=== PATIENT | female | born 1960 | race Hispanic/Latino ===

== ENCOUNTER 2022-12-18 19:03 | Emergency (ER) | payer OTHER ==
[2022-12-18 19:40] LABS: Absolute Lymphocytes (CBC) 3.3 K/uL (0.7-4.9); Hematocrit 37.7 % (36.0-45.0); Lymphocytes % 29.3 % (15.3-44.8); MCV 89.2 fL (80-100); MPV 8.9 fL (7.6-11.3); RBC Red Blood Cell Count 4.22 M/uL (3.86-4.86)
--- OUTSIDE RECORDS SUMMARY | 2022-12-18 19:48 | XMS REPORT | Continuity of Care Document ---
:1960 Author Organization [facility] t Address [address] [place] [address] Care Team Providers Name Role Phone Peace Ching Primary Care Physician [phone] Problems This patient has no known problems. Allergies, Adverse Reactions, Alerts This patient has no known allergies or adverse reactions. Medications Ordered Filled Start Stop Current Ordering Indication Dosage Frequency Signature Comments Components Source Medication Medication Date Date Medication? Clinician (SIG) Name Name TAKE ONE 2021-0 No 75 (1) 8-15 TABLET(S) 00:00: BY MOUTH 00 DAILY. TAKE ONE 2022-0 No 75 (1) 8-15 TABLET(S) 00:00: BY MOUTH 00 DAILY. TAKE 1 2022-0 No 5 TABLET 8-15 DAILY. 00:00: 00 TAKE 1 2022-0 No 5 TABLET 8-15 DAILY. 00:00: 00 TAKE ONE 2022-0 No 75 (1) 8-15 TABLET(S) 00:00: BY MOUTH 00 DAILY. TAKE ONE 2022-0 No 75 (1) 8-15 TABLET(S) 00:00: BY MOUTH 00 DAILY. TAKE 1 2022-0 No 5 TABLET 8-15 DAILY. 00:00: 00 TAKE 1 2022-0 No TABLET 8-15 DAILY. 00:00: 00 TAKE ONE 2022-0 No 75 (1) 8-15 TABLET(S) 00:00: BY MOUTH 00 DAILY. TAKE ONE 2022-0 No 75 (1) 8-15 TABLET(S) 00:00: BY MOUTH 00 DAILY. TAKE 1 2022-0 No 5 TABLET 8-15 DAILY. 00:00: 00 TAKE 1 2022-0 No TABLET 8-15 DAILY. 00:00: 00 &lt 2022-0 No 500 7-27 00:00: 00 &lt 2022-0 No 500 7 00:00: 00 &lt 2022-0 No 500 05-25 00:00: 00 &lt 2022-0 No 500 7 00:00: 00 Dose 2022-0 No 20 Unknown 05-24 00:00: 00 TAKE ONE 2-0 No 20 (1) 7-26 CAPSULE(S) 00:00: BY MOUTH 00 ONCE A DAY. &lt 2022-0 No 75 7 00:00: 00 Dose 2022-0 No 20 Unknown 05-24 00:00: 00 TAKE ONE 2-0 No 20 (1) 7-26 CAPSULE(S) 00:00: BY MOUTH 00 ONCE A DAY. &lt 2022-0 No 75 7 00:00: 00 Dose 2022-0 No 20 Unknown 05-24 00:00: 00 TAKE ONE 2-0 No 20 (1) 7-26 CAPSULE(S) 00:00: BY MOUTH 00 ONCE A DAY. &lt 2022-0 No 75 05-24 00:00: 00 Dose 2022-0 No 20 Unknown 05-24 00:00: 00 TAKE ONE 2-0 No 20 (1) 7-26 CAPSULE(S) 00:00: BY MOUTH 00 ONCE A DAY. &lt 2022-0 No 75 05-24 00:00: 00 triamcinolo 2-0 No 1% ne 05-21 acetonide 00:00: 0.1 % 00 topical cream TAKE ONE 2021-0 No 75 (1) 7-23 TABLET(S) 00:00: BY MOUTH 00 DAILY. &lt 2022-0 No 20 7- 00:00: 00 &lt 2022-0 No 75 7 00:00: 00 Dose 2022-0 No Unknown 7 00:00: 00 TAKE ONE 2-0 No 75 (1) 7-23 TABLET(S) 00:00: BY MOUTH 00 DAILY. &lt 2022-0 No 20 7-23 00:00: 00 &lt 2022-0 No 75 7- 00:00: 00 Dose 2022-0 No Unknown 7-23 00:00: 00 TAKE ONE 2-0 No 75 (1) 7-23 TABLET(S) 00:00: BY MOUTH 00 DAILY. &lt 2022-0 No 20 7-23 00:00: 00 &lt 2022-0 No 75 7-23 00:00: 00 triamcinolo 2-0 No 1% ne 7- acetonide 00:00: 0.1 % 00 topical cream TAKE ONE 2021-0 No 75 (1) 7-23 TABLET(S) 00:00: BY MOUTH 00 DAILY. &lt 2022-0 No 20 7-23 00:00: 00 &lt 2022-0 No 75 7-23 00:00: 00 meloxicam 2-0 No 1mg 7.5 mg 5-11 tablet 00:00: 00 meloxicam 2022-0 No 1mg 7.5 mg 5-11 tablet 00:00: 00 meloxicam 2022-0 No 1mg 7.5 mg 5-11 tablet 00:00: 00 meloxicam 2022-0 No 1mg 7.5 mg 5-11 tablet 00:00: 00 rosuvastati 2-0 No 1mg n 5 mg 5-03 tablet 00:00: 00 oxybutynin 2-0 No 1mg chloride ER 5-03 10 mg 00:00: tablet,exte 00 nded release 24 hr loratadine 2-0 No 1mg 10 mg 5-03 tablet 00:00: 00 omeprazole 2-0 No 1mg 20 mg 5-03 tablet,courtney 00:00: yed release 00 lisinopril 2-0 No 1mg 10 mg 5-03 tablet 00:00: 00 metformin 2022-0 No 1mg 500 mg 5-03 tablet 00:00: 00 Dose 2022-0 No Unknown 5-03 00:00: 00 Dose 2022-0 No Unknown 5-03 00:00: 00 Dose 2022-0 No Unknown 5-03 00:00: 00 Dose 2022-0 No Unknown 5-03 00:00: 00 Dose 2022-0 No Unknown 5-03 00:00: 00 Dose 2022-0 No Unknown 5-03 00:00: 00 Dose 2022-0 No Unknown 5-03 00:00: 00 Dose 2022-0 No Unknown 5-03 00:00: 00 Dose 2022-0 No Unknown 5-03 00:00: 00 Dose 2022-0 No Unknown 5-03 00:00: 00 Dose 2022-0 No Unknown 5-03 00:00: 00 Dose 2022-0 No Unknown 5-03 00:00: 00 Dose 2022-0 No Unknown 5-03 00:00: 00 Dose 2022-0 No Unknown 5-03 00:00: 00 Dose 2022-0 No Unknown 5-03 00:00: 00 rosuvastati 2022-0 No 1mg n 5 mg 5-03 tablet 00:00: 00 oxybutynin 2022-0 No 1mg chloride ER 5-03 10 mg 00:00: tablet,exte 00 nded release 24 hr loratadine 2022-0 No 1mg 10 mg 5-03 tablet 00:00: 00 omeprazole 2022-0 No 1mg 20 mg 5-03 tablet,courtney 00:00: yed release 00 lisinopril 2022-0 No 1mg 10 mg 5-03 tablet 00:00: 00 metformin 2022-0 No 1mg 500 mg 5-03 tablet 00:00: 00 Dose 2022-0 No Unknown 5-03 00:00: 00 Dose 2022-0 No Unknown 5-03 00:00: 00 Dose 2022-0 No Unknown 5-03 00:00: 00 Dose 2022-0 No Unknown 5-03 00:00: 00 Dose 2022-0 No Unknown 5-03 00:00: 00 Dose 2022-0 No Unknown 5-03 00:00: 00 Dose 2022-0 No Unknown 5-03 00:00: 00 Dose 2022-0 No Unknown 5-03 00:00: 00 Dose 2022-0 No Unknown 5-03 00:00: 00 Dose 2022-0 No Unknown 5-03 00:00: 00 Dose 2022-0 No Unknown 5-03 00:00: 00 Dose 2022-0 No Unknown 5-03 00:00: 00 Dose 2022-0 No Unknown 5-03 00:00: 00 Dose 2022-0 No Unknown 5-03 00:00: 00 Dose 2022-0 No Unknown 5-03 00:00: 00 rosuvastati 2022-0 No 1mg n 5 mg 5-03 tablet 00:00: 00 oxybutynin 2022-0 No 1mg chloride ER 5-03 10 mg 00:00: tablet,exte 00 nded release 24 hr loratadine 2022-0 No 1mg 10 mg 5-03 tablet 00:00: 00 omeprazole 2022-0 No 1mg 20 mg 5-03 tablet,courtney 00:00: yed release 00 lisinopril 2022-0 No 1mg 10 mg 5-03 tablet 00:00: 00 metformin 2022-0 No 1mg 500 mg 5-03 tablet 00:00: 00 Dose 2022-0 No Unknown 5-03 00:00: 00 Dose 2022-0 No Unknown 5-03 00:00: 00 Dose 2022-0 No Unknown 5-03 00:00: 00 rosuvastati 2022-0 No 1mg n 5 mg 5-03 tablet 00:00: 00 oxybutynin 2022-0 No 1mg chloride ER 5-03 10 mg 00:00: tablet,exte 00 nded release 24 hr loratadine 2-0 No 1mg 10 mg 5-03 tablet 00:00: 00 omeprazole 2022-0 No 1mg 20 mg 5-03 tablet,courtney 00:00: yed release 00 lisinopril 2022-0 No 1mg 10 mg 5-03 tablet 00:00: 00 metformin 2022-0 No 1mg 500 mg 5-03 tablet 00:00: 00 Dose 2022-0 No Unknown 5-03 00:00: 00 Dose 2022-0 No Unknown 5-03 00:00: 00 Dose 2022-0 No Unknown 5-03 00:00: 00 Dose 2022-0 No Unknown 5-03 00:00: 00 Dose 2022-0 No Unknown 5-03 00:00: 00 Dose 2022-0 No Unknown 5-03 00:00: 00 Dose 2022-0 No Unknown 5-03 00:00: 00 Dose 2022-0 No Unknown 5-03 00:00: 00 Dose 2022-0 No Unknown 5-03 00:00: 00 Dose 2022-0 No Unknown 5-03 00:00: 00 Dose 2022-0 No Unknown 5-03 00:00: 00 Dose 2022-0 No Unknown 5-03 00:00: 00 Dose 2022-0 No Unknown 5-03 00:00: 00 Dose 2022-0 No Unknown 5-03 00:00: 00 Dose 2022-0 No Unknown 5-03 00:00: 00 Dose 2022-0 No Unknown 5-03 00:00: 00 Dose 2-0 No Unknown 5-03 00:00: 00 Dose 2-0 No Unknown 5-03 00:00: 00 Dose 2-0 No Unknown 5-03 00:00: 00 Dose 2-0 No Unknown 5-03 00:00: 00 Dose 2-0 No Unknown 5-03 00:00: 00 Dose 2-0 No Unknown 5-03 00:00: 00 Dose 2-0 No Unknown 5-03 00:00: 00 Dose 2-0 No Unknown 5-03 00:00: 00 Dose 2-0 No Unknown 5-03 00:00: 00 Dose 2-0 No Unknown 5-03 00:00: 00 Dose 2-0 No Unknown 5-03 00:00: 00 Vitamin D3 2-0 No 1(1,000 25 mcg 2-09 unit) (1,000 00:00: unit) 00 capsule Vitamin D3 2-0 No 1(1,000 25 mcg 2-09 unit) (1,000 00:00: unit) 00 capsule Vitamin D3 2-0 No 1(1,000 25 mcg 2-09 unit) (1,000 00:00: unit) 00 capsule Vitamin D3 2-0 No 1(1,000 25 mcg 2-09 unit) (1,000 00:00: unit) 00 capsule Dose 2-0 No Unknown 2-08 00:00: 00 oxybutynin 2-0 No 1mg chloride ER 2-08 10 mg 00:00: tablet,exte 00 nded release 24 hr Dose 2-0 No Unknown 2-08 00:00: 00 Dose 2-0 No Unknown 2-08 00:00: 00 oxybutynin 2-0 No 1mg chloride ER 2-08 10 mg 00:00: tablet,exte 00 nded release 24 hr Dose 2-0 No Unknown 2-08 00:00: 00 Dose 2-0 No Unknown 2-08 00:00: 00 oxybutynin 2022-0 No 1mg chloride ER 2-08 10 mg 00:00: tablet,exte 00 nded release 24 hr Dose 2-0 No Unknown 2-08 00:00: 00 Dose 2-0 No Unknown 2-08 00:00: 00 oxybutynin 2-0 No 1mg chloride ER 2-08 10 mg 00:00: tablet,exte 00 nded release 24 hr Dose 2-0 No Unknown 2-08 00:00: 00 oxybutynin 1-1 No 1mg chloride ER 1-17 10 mg 00:00: tablet,exte 00 nded release 24 hr oxybutynin 2020-1 No 1mg chloride ER 1-17 10 mg 00:00: tablet,exte 00 nded release 24 hr oxybutynin 2020-1 No 1mg chloride ER 1-17 10 mg 00:00: tablet,exte 00 nded release 24 hr oxybutynin 2020-1 No 1mg chloride ER 1-17 10 mg 00:00: tablet,exte 00 nded release 24 hr triamcinolo 2020-1 No 1% ne 1-04 acetonide 00:00: 0.1 % 00 topical cream Dose 2020-1 No Unknown 1-04 00:00: 00 lisinopril 1-1 No 1mg 10 mg 1-04 tablet 00:00: 00 rosuvastati 2020-1 No 1mg n 5 mg 1-04 tablet 00:00: 00 omeprazole 1-1 No 1mg 20 mg 1-04 tablet,courtney 00:00: yed release 00 loratadine 2020-1 No 1mg 10 mg 1-04 tablet 00:00: 00 metformin 1-1 No 1mg 500 mg 1-04 tablet 00:00: 00 Dose 2020-1 No Unknown 1-04 00:00: 00 Dose 1-1 No Unknown 1-04 00:00: 00 lisinopril 1-1 No 1mg 10 mg 1-04 tablet 00:00: 00 rosuvastati 1-1 No 1mg n 5 mg 1-04 tablet 00:00: 00 omeprazole 1-1 No 1mg 20 mg 1-04 tablet,courtney 00:00: yed release 00 loratadine 1-1 No 1mg 10 mg 1-04 tablet 00:00: 00 metformin 1-1 No 1mg 500 mg 1-04 tablet 00:00: 00 triamcinolo 1-1 No 1% ne 1-04 acetonide 00:00: 0.1 % 00 topical cream Dose 2020- No Unknown 1-04 00:00: 00 lisinopril 2020-1 No 1mg 10 mg 1-04 tablet 00:00: 00 rosuvastati 2020-1 No 1mg n 5 mg 1-04 tablet 00:00: 00 omeprazole 2020-1 No 1mg 20 mg 1-04 tablet,courtney 00:00: yed release 00 loratadine 2020- No 1mg 10 mg 1-04 tablet 00:00: 00 metformin 2020-1 No 1mg 500 mg 1-04 tablet 00:00: 00 Dose 2020-1 No Unknown 1-04 00:00: 00 Dose 2020-1 No Unknown 1-04 00:00: 00 lisinopril 2020-1 No 1mg 10 mg 1-04 tablet 00:00: 00 rosuvastati 2020-1 No 1mg n 5 mg 1-04 tablet 00:00: 00 omeprazole 2020-1 No 1mg 20 mg 1-04 tablet,courtney 00:00: yed release 00 loratadine 2020- No 1mg 10 mg 1-04 tablet 00:00: 00 metformin 2020-1 No 1mg 500 mg 1-04 tablet 00:00: 00 triamcinolo 2020- No 1% ne 1-03 acetonide 00:00: 0.1 % 00 topical cream omeprazole 2020- No 1mg 20 mg 1-03 tablet,courtney 00:00: yed release 00 meloxicam 2020-1 No 1mg 7.5 mg 1-03 tablet 00:00: 00 lisinopril 2020-1 No 1mg 10 mg 1-03 tablet 00:00: 00 rosuvastati 2020-1 No 1mg n 5 mg 1-03 tablet 00:00: 00 metformin 2020-1 No 1mg 500 mg 1-03 tablet 00:00: 00 triamcinolo 2020-1 No 1% ne 1-03 acetonide 00:00: 0.1 % 00 topical cream omeprazole 2020-1 No 1mg 20 mg 1-03 tablet,courtney 00:00: yed release 00 meloxicam 2020-1 No 1mg 7.5 mg 1-03 tablet 00:00: 00 lisinopril 2020-1 No 1mg 10 mg 1-03 tablet 00:00: 00 rosuvastati 1-1 No 1mg n 5 mg 1-03 tablet 00:00: 00 triamcinolo 1-1 No 1% ne 1-03 acetonide 00:00: 0.1 % 00 topical cream omeprazole 2020-1 No 1mg 20 mg 1-03 tablet,courtney 00:00: yed release 00 meloxicam 1-1 No 1mg 7.5 mg 1-03 tablet 00:00: 00 lisinopril 1-1 No 1mg 10 mg 1-03 tablet 00:00: 00 rosuvastati 2020-1 No 1mg n 5 mg 1-03 tablet 00:00: 00 metformin 1-1 No 1mg 500 mg 1-03 tablet 00:00: 00 metformin 1-1 No 1mg 500 mg 1-03 tablet 00:00: 00 triamcinolo 2020-1 No 1% ne 1-03 acetonide 00:00: 0.1 % 00 topical cream omeprazole 2020-1 No 1mg 20 mg 1-03 tablet,courtney 00:00: yed release 00 meloxicam 2020-1 No 1mg 7.5 mg 1-03 tablet 00:00: 00 lisinopril 1-1 No 1mg 10 mg 1-03 tablet 00:00: 00 rosuvastati 1-1 No 1mg n 5 mg 1-03 tablet 00:00: 00 metformin 1-1 No 1mg 500 mg 1-03 tablet 00:00: 00 diclofenac 2021-0 No 1% 1 % topical 7-21 gel 00:00: 00 omeprazole 1-0 No 1mg 20 mg 7-21 tablet,courtney 00:00: yed release 00 meloxicam 1-0 No 1mg 7.5 mg 7-21 tablet 00:00: 00 lisinopril 2021-0 No 1mg 10 mg 7-21 tablet 00:00: 00 rosuvastati 2021-0 No 1mg n 5 mg 7-21 tablet 00:00: 00 oxybutynin 2021-0 No 1mg chloride ER 7-21 5 mg 00:00: tablet,exte 00 nded release 24 hr metformin 1-0 No 1mg 500 mg 7-21 tablet 00:00: 00 Lidocaine 2021-0 No 15% Viscous 2 % 7-21 mucosal 00:00: solution 00 diclofenac 2021-0 No 1% 1 % topical 7-21 gel 00:00: 00 omeprazole 2021-0 No 1mg 20 mg 7-21 tablet,courtney 00:00: yed release 00 meloxicam 2021-0 No 1mg 7.5 mg 7-21 tablet 00:00: 00 lisinopril 2021-0 No 1mg 10 mg 7-21 tablet 00:00: 00 rosuvastati 2021-0 No 1mg n 5 mg 7-21 tablet 00:00: 00 oxybutynin 2021-0 No 1mg chloride ER 7-21 5 mg 00:00: tablet,exte 00 nded release 24 hr metformin 2021-0 No 1mg 500 mg 7-21 tablet 00:00: 00 Lidocaine 2021-0 No 15% Viscous 2 % 7-21 mucosal 00:00: solution 00 diclofenac 2021-0 No 1% 1 % topical 7-21 gel 00:00: 00 omeprazole 2021-0 No 1mg 20 mg 7-21 tablet,courtney 00:00: yed release 00 meloxicam 2021-0 No 1mg 7.5 mg 7-21 tablet 00:00: 00 lisinopril 2021-0 No 1mg 10 mg 7-21 tablet 00:00: 00 rosuvastati 2021-0 No 1mg n 5 mg 7-21 tablet 00:00: 00 oxybutynin 2021-0 No 1mg chloride ER 7-21 5 mg 00:00: tablet,exte 00 nded release 24 hr metformin 2021-0 No 1mg 500 mg 7-21 tablet 00:00: 00 Lidocaine 2021-0 No 15% Viscous 2 % 7-21 mucosal 00:00: solution 00 diclofenac 2021-0 No 1% 1 % topical 7-21 gel 00:00: 00 omeprazole 2021-0 No 1mg 20 mg 7-21 tablet,courtney 00:00: yed release 00 meloxicam 2021-0 No 1mg 7.5 mg 7-21 tablet 00:00: 00 lisinopril 2021-0 No 1mg 10 mg 7-21 tablet 00:00: 00 rosuvastati 2021-0 No 1mg n 5 mg 7-21 tablet 00:00: 00 oxybutynin 2021-0 No 1mg chloride ER 7-21 5 mg 00:00: tablet,exte 00 nded release 24 hr metformin 2021-0 No 1mg 500 mg 7-21 tablet 00:00: 00 Lidocaine 2021-0 No 15% Viscous 2 % 7-21 mucosal 00:00: solution 00 levofloxaci 2021-0 No 1mg n 250 mg 5-07 tablet 00:00: 00 metformin 2021-0 No 1mg 500 mg 5-07 tablet 00:00: 00 levofloxaci 2021-0 No 1mg n 250 mg 5-07 tablet 00:00: 00 metformin 2021-0 No 1mg 500 mg 5-07 tablet 00:00: 00 levofloxaci 2021-0 No 1mg n 250 mg 5-07 tablet 00:00: 00 metformin 2021-0 No 1mg 500 mg 5-07 tablet 00:00: 00 levofloxaci 2021-0 No 1mg n 250 mg 5-07 tablet 00:00: 00 metformin 2021-0 No 1mg 500 mg 5-07 tablet 00:00: 00 rosuvastati 2021-0 No 1mg n 5 mg 5-04 tablet 00:00: 00 meloxicam 2021-0 No 1mg 7.5 mg 5-04 tablet 00:00: 00 lisinopril 2021-0 No 1mg 10 mg 5-04 tablet 00:00: 00 rosuvastati 2021-0 No 1mg n 5 mg 5-04 tablet 00:00: 00 omeprazole 2021-0 No 1mg 20 mg 5-04 tablet,courtney 00:00: yed release 00 oxybutynin 2021-0 No 1mg chloride ER 5-04 5 mg 00:00: tablet,exte 00 nded release 24 hr metformin 2021-0 No 1mg 500 mg 5-04 tablet 00:00: 00 meloxicam 2021-0 No 1mg 7.5 mg 5-04 tablet 00:00: 00 lisinopril 2021-0 No 1mg 10 mg 5-04 tablet 00:00: 00 omeprazole 2021-0 No 1mg 20 mg 5-04 tablet,courtney 00:00: yed release 00 oxybutynin 2021-0 No 1mg chloride ER 5-04 5 mg 00:00: tablet,exte 00 nded release 24 hr metformin 2021-0 No 1mg 500 mg 5-04 tablet 00:00: 00 rosuvastati 2021-0 No 1mg n 5 mg 5-04 tablet 00:00: 00 meloxicam 2021-0 No 1mg 7.5 mg 5-04 tablet 00:00: 00 lisinopril 2021-0 No 1mg 10 mg 5-04 tablet 00:00: 00 omeprazole 2021-0 No 1mg 20 mg 5-04 tablet,courtney 00:00: yed release 00 oxybutynin 2021-0 No 1mg chloride ER 5-04 5 mg 00:00: tablet,exte 00 nded release 24 hr metformin 2021-0 No 1mg 500 mg 5-04 tablet 00:00: 00 rosuvastati 2021-0 No 1mg n 5 mg 5-04 tablet 00:00: 00 meloxicam 2021-0 No 1mg 7.5 mg 5-04 tablet 00:00: 00 lisinopril 2021-0 No 1mg 10 mg 5-04 tablet 00:00: 00 omeprazole 2021-0 No 1mg 20 mg 5-04 tablet,courtney 00:00: yed release 00 oxybutynin 2021-0 No 1mg chloride ER 5-04 5 mg 00:00: tablet,exte 00 nded release 24 hr metformin 2021-0 No 1mg 500 mg 5-04 tablet 00:00: 00 rosuvastati 2021-0 No 1mg n 5 mg 4-06 tablet 00:00: 00 rosuvastati 2021-0 No 1mg n 5 mg 4-06 tablet 00:00: 00 rosuvastati 2021-0 No 1mg n 5 mg 4-06 tablet 00:00: 00 rosuvastati 2021-0 No 1mg n 5 mg 4-06 tablet 00:00: 00 rosuvastati 2021-0 No 1mg n 5 mg 2-06 tablet 00:00: 00 rosuvastati 2021-0 No 1mg n 5 mg 2-06 tablet 00:00: 00 rosuvastati 2021-0 No 1mg n 5 mg 2-06 tablet 00:00: 00 rosuvastati 2021-0 No 1mg n 5 mg 2-06 tablet 00:00: 00 meloxicam 2021-0 No 1mg 7.5 mg 2-04 tablet 00:00: 00 lisinopril 2021-0 No 1mg 10 mg 2-04 tablet 00:00: 00 omeprazole 2021-0 No 1mg 20 mg 2-04 tablet,courtney 00:00: yed release 00 oxybutynin 2021-0 No 1mg chloride ER 2-04 5 mg 00:00: tablet,exte 00 nded release 24 hr metformin 2021-0 No 1mg 500 mg 2-04 tablet 00:00: 00 meloxicam 2021-0 No 1mg 7.5 mg 2-04 tablet 00:00: 00 lisinopril 2021-0 No 1mg 10 mg 2-04 tablet 00:00: 00 omeprazole 2021-0 No 1mg 20 mg 2-04 tablet,courtney 00:00: yed release 00 oxybutynin 2021-0 No 1mg chloride ER 2-04 5 mg 00:00: tablet,exte 00 nded release 24 hr metformin 2021-0 No 1mg 500 mg 2-04 tablet 00:00: 00 meloxicam 2021-0 No 1mg 7.5 mg 2-04 tablet 00:00: 00 lisinopril 2021-0 No 1mg 10 mg 2-04 tablet 00:00: 00 omeprazole 2021-0 No 1mg 20 mg 2-04 tablet,courtney 00:00: yed release 00 oxybutynin 2021-0 No 1mg chloride ER 2-04 5 mg 00:00: tablet,exte 00 nded release 24 hr metformin 2021-0 No 1mg 500 mg 2-04 tablet 00:00: 00 meloxicam 2021-0 No 1mg 7.5 mg 2-04 tablet 00:00: 00 lisinopril 2021-0 No 1mg 10 mg 2-04 tablet 00:00: 00 omeprazole 2021-0 No 1mg 20 mg 2-04 tablet,courtney 00:00: yed release 00 oxybutynin 2021-0 No 1mg chloride ER 2-04 5 mg 00:00: tablet,exte 00 nded release 24 hr metformin 2021-0 No 1mg 500 mg 2-04 tablet 00:00: 00 meloxicam 2020-1 No 1mg 7.5 mg 2-07 tablet 00:00: 00 meloxicam 2020-1 No 1mg 7.5 mg 2-07 tablet 00:00: 00 meloxicam 2020-1 No 1mg 7.5 mg 2-07 tablet 00:00: 00 meloxicam 2020-1 No 1mg 7.5 mg 2-07 tablet 00:00: 00 lisinopril 2020-1 No 1mg 10 mg 1-12 tablet 00:00: 00 omeprazole 2019-1 No 1mg 20 mg 1-12 tablet,courtney 00:00: yed release 00 metformin 2020-1 No 1mg 500 mg 1-12 tablet 00:00: 00 lisinopril 2020-1 No 1mg 10 mg 1-12 tablet 00:00: 00 omeprazole 2019-1 No 1mg 20 mg 1-12 tablet,courtney 00:00: yed release 00 metformin 2020-1 No 1mg 500 mg 1-12 tablet 00:00: 00 lisinopril 2019-1 No 1mg 10 mg 1-12 tablet 00:00: 00 omeprazole 2019-1 No 1mg 20 mg 1-12 tablet,courtney 00:00: yed release 00 metformin 2020-1 No 1mg 500 mg 1-12 tablet 00:00: 00 lisinopril 2019-1 No 1mg 10 mg 1-12 tablet 00:00: 00 omeprazole 2019-1 No 1mg 20 mg 1-12 tablet,courtney 00:00: yed release 00 metformin 2020-1 No 1mg 500 mg 1-12 tablet 00:00: 00 meloxicam 2019-1 No 1mg 7.5 mg 1-11 tablet 00:00: 00 meloxicam 2019-1 No 1mg 7.5 mg 1-11 tablet 00:00: 00 meloxicam 2019-1 No 1mg 7.5 mg 1-11 tablet 00:00: 00 meloxicam 2019-1 No 1mg 7.5 mg 1-11 tablet 00:00: 00 oxybutynin 2019-1 No 1mg chloride ER 1-09 5 mg 00:00: tablet,exte 00 nded release 24 hr oxybutynin 2019-1 No 1mg chloride ER 1-09 5 mg 00:00: tablet,exte 00 nded release 24 hr oxybutynin 2019-1 No 1mg chloride ER 1-09 5 mg 00:00: tablet,exte 00 nded release 24 hr oxybutynin 2020-1 No 1mg chloride ER 1-09 5 mg 00:00: tablet,exte 00 nded release 24 hr meloxicam 2020-0 No 1mg 7.5 mg 8-13 tablet 00:00: 00 metformin 2020-0 No 1mg 500 mg 8-13 tablet 00:00: 00 diclofenac 2020-0 No 1% 3 % topical 8-13 gel 00:00: 00 lisinopril 2020-0 No 1mg 10 mg 8-13 tablet 00:00: 00 omeprazole 2020-0 No 1mg 20 mg 8-13 tablet,courtney 00:00: yed release 00 meloxicam 2020-0 No 1mg 7.5 mg 8-13 tablet 00:00: 00 metformin 2020-0 No 1mg 500 mg 8-13 tablet 00:00: 00 diclofenac 2020-0 No 1% 3 % topical 8-13 gel 00:00: 00 lisinopril 2020-0 No 1mg 10 mg 8-13 tablet 00:00: 00 omeprazole 2020-0 No 1mg 20 mg 8-13 tablet,courtney 00:00: yed release 00 meloxicam 2020-0 No 1mg 7.5 mg 8-13 tablet 00:00: 00 metformin 2020-0 No 1mg 500 mg 8-13 tablet 00:00: 00 diclofenac 2020-0 No 1% 3 % topical 8-13 gel 00:00: 00 lisinopril 2020-0 No 1mg 10 mg 8-13 tablet 00:00: 00 omeprazole 2020-0 No 1mg 20 mg 8-13 tablet,courtney 00:00: yed release 00 meloxicam 2020-0 No 1mg 7.5 mg 8-13 tablet 00:00: 00 metformin 2020-0 No 1mg 500 mg 8-13 tablet 00:00: 00 diclofenac 2020-0 No 1% 3 % topical 8-13 gel 00:00: 00 lisinopril 2020-0 No 1mg 10 mg 8-13 tablet 00:00: 00 omeprazole 2020-0 No 1mg 20 mg 8-13 tablet,courtney 00:00: yed release 00 omeprazole 2019-1 No 1mg 20 mg 2-11 tablet,courtney 00:00: yed release 00 metformin 2019-1 No 1mg 500 mg 2-11 tablet 00:00: 00 benzonatate 2019-1 No 1mg 200 mg 2-11 capsule 00:00: 00 Bromfed DM 2019-1 No 10mg/5 2 mg-30 2-11 mL mg-10 mg/5 00:00: mL oral 00 syrup omeprazole 2019-1 No 1mg 20 mg 2-11 tablet,courtney 00:00: yed release 00 metformin 2019-1 No 1mg 500 mg 2-11 tablet 00:00: 00 omeprazole 2019-1 No 1mg 20 mg 2-11 tablet,courtney 00:00: yed release 00 metformin 2019-1 No 1mg 500 mg 2-11 tablet 00:00: 00 benzonatate 2019-1 No 1mg 200 mg 2-11 capsule 00:00: 00 Bromfed DM 2019-1 No 10mg/5 2 mg-30 2-11 mL mg-10 mg/5 00:00: mL oral 00 syrup benzonatate 2019-1 No 1mg 200 mg 2-11 capsule 00:00: 00 Bromfed DM 2019-1 No 10mg/5 2 mg-30 2-11 mL mg-10 mg/5 00:00: mL oral 00 syrup omeprazole 2018-1 No 1mg 20 mg 2-11 tablet,courtney 00:00: yed release 00 metformin 2019-1 No 1mg 500 mg 2-11 tablet 00:00: 00 benzonatate 2019-1 No 1mg 200 mg 2-11 capsule 00:00: 00 Bromfed DM 2019-1 No 10mg/5 2 mg-30 2-11 mL mg-10 mg/5 00:00: mL oral 00 syrup Immunizations Ordered Immunization Filled Immunization Date Status Commen ts Source Name Name SHINGRIX VACCINE 2022-06-13 Completed 00:00:00 SHINGRIX VACCINE 2022-06-13 Completed 00:00:00 SHINGRIX VACCINE 2022-06-13 Completed 00:00:00 SHINGRIX VACCINE 2021-12-07 Completed 00:00:00 Tdap 2021-12-07 Completed 00:00:00 pneumococcal 2021-12-07 Completed polysacchar 00:00:00 [facility] VACCINE 2021-12-07 Completed 00:00:00 Tdap 2021-12-07 Completed 00:00:00 pneumococcal 2021-12-07 Completed polysacchar 00:00:00 [facility] VACCINE 2021-12-07 Completed 00:00:00 Tdap 2021-12-07 Completed 00:00:00 pneumococcal 2021-12-07 Completed polysacchar 00:00:00 [facility] VACCINE 2021-12-07 Completed 00:00:00 Tdap 2021-12-07 Completed 00:00:00 pneumococcal 2021-12-07 Completed polysacchar 00:00:00 Moderna COVID-19 2021-11-08 Completed Vaccine 00:00:00 Moderna COVID-19 2021-11-08 Completed Vaccine 00:00:00 Moderna COVID-19 2021-11-08 Completed Vaccine 00:00:00 Moderna COVID-19 2021-11-08 Completed Vaccine 00:00:00 Influenza, seasonal, 2021-09-01 Completed inj 00:00:00 Influenza, seasonal, 2021-09-01 Completed inj 00:00:00 Influenza, seasonal, 2021-09-01 Completed inj 00:00:00 Influenza, seasonal, 2021-09-01 Completed inj 00:00:00 Moderna COVID-19 2021-01-05 Completed Vaccine 00:00:00 Moderna COVID-19 2021-01-05 Completed Vaccine 00:00:00 Moderna COVID-19 2021-01-05 Completed Vaccine 00:00:00 Moderna COVID-19 2021-01-05 Completed Vaccine 00:00:00 influenza, injectable 2020-09-07 Completed 00:00:00 influenza, injectable 2020-09-07 Completed 00:00:00 influenza, injectable 2020-09-07 Completed 00:00:00 influenza, injectable 2020-09-07 Completed 00:00:00 Influenza, seasonal, 2019-10-09 Completed inj 00:00:00 Influenza, seasonal, 2019-10-09 Completed inj 00:00:00 Influenza, seasonal, 2019-10-09 Completed inj 00:00:00 Influenza, seasonal, 2019-10-09 Completed inj 00:00:00 Vital Signs Vital Name Observation Time Observation Value Comments Source BP Systolic 2022-08-02 16:17:00 118 mm[Hg] BP Diastolic 2022-08-02 16:17:00 61 mm[Hg] Weight Measured 2022-08-02 16:17:00 166.80 pounds Height Measured 2022-08-02 16:17:00 64.93 inches Body Temperature 2022-08-02 16:17:00 97.50 degrees Heart Rate 2022-08-02 16:17:00 82.00 /min Respiratory Rate 2022-08-02 16:17:00 20.00 /min BP Systolic 2022-06-13 08:03:00 123 mm[Hg] BP Diastolic 2022-06-13 08:03:00 59 mm[Hg] Weight Measured 2022-06-13 08:03:00 171.40 pounds Height Measured 2022-06-13 08:03:00 64.93 inches Body Temperature 2022-06-13 08:03:00 97.10 degrees Heart Rate 2022-06-13 08:03:00 70.00 /min Respiratory Rate 2022-06-13 08:03:00 BP Systolic 2022-05-24 15:23:00 125 mm[Hg] BP Diastolic 2022-05-24 15:23:00 63 mm[Hg] Weight Measured 2022-05-24 15:23:00 171.00 pounds Height Measured 2022-05-24 15:23:00 64.93 inches Body Temperature 2022-05-24 15:23:00 207.49 degrees Heart Rate 2022-05-24 15:23:00 77.00 /min Respiratory Rate 2022-05-24 15:23:00 BP Systolic 2021-12-07 08:50:00 127 mm[Hg] BP Diastolic 2021-12-07 08:50:00 58 mm[Hg] Weight Measured 2021-12-07 08:50:00 167.80 pounds Height Measured 2021-12-07 08:50:00 64.93 inches Body Temperature 2021-12-07 08:50:00 98.50 degrees Heart Rate 2021-12-07 08:50:00 73.00 /min Respiratory Rate 2021-12-07 08:50:00 21.00 /min BP Systolic 2021-09-01 11:47:00 127 mm[Hg] BP Diastolic 2021-09-01 11:47:00 69 mm[Hg] Weight Measured 2021-09-01 11:47:00 169.00 pounds Height Measured 2021-09-01 11:47:00 64.93 inches Body Temperature 2021-09-01 11:47:00 98.20 degrees Heart Rate 2021-09-01 11:47:00 74.00 /min Respiratory Rate 2021-09-01 11:47:00 18.00 /min BP Systolic 2021-09-01 08:10:00 127 mm[Hg] BP Diastolic 2021-09-01 08:10:00 69 mm[Hg] Weight Measured 2021-09-01 08:10:00 169.00 pounds Height Measured 2021-09-01 08:10:00 64.96 inches Body Temperature 2021-09-01 08:10:00 98.20 degrees Heart Rate 2021-09-01 08:10:00 74.00 /min Respiratory Rate 2021-09-01 08:10:00 18.00 /min BP Systolic 2021-08-04 16:52:00 BP Diastolic 2021-08-04 16:52:00 Weight Measured 2021-08-04 16:52:00 179.00 pounds Height Measured 2021-08-04 16:52:00 64.96 inches Body Temperature 2021-08-04 16:52:00 Heart Rate 2021-08-04 16:52:00 Respiratory Rate 2021-08-04 16:52:00 BP Systolic 2021-05-19 10:49:00 112 mm[Hg] BP Diastolic 2021-05-19 10:49:00 61 mm[Hg] Weight Measured 2021-05-19 10:49:00 170.60 pounds Height Measured 2021-05-19 10:49:00 64.96 inches Body Temperature 2021-05-19 10:49:00 97.70 degrees Heart Rate 2021-05-19 10:49:00 80.00 /min Respiratory Rate 2021-05-19 10:49:00 21.00 /min BP Systolic 2021-03-02 08:47:00 BP Diastolic 2021-03-02 08:47:00 Weight Measured 2021-03-02 08:47:00 169.20 pounds Height Measured 2021-03-02 08:47:00 64.96 inches Body Temperature 2021-03-02 08:47:00 98.20 degrees Heart Rate 2021-03-02 08:47:00 73.00 /min Respiratory Rate 2021-03-02 08:47:00 21.00 /min BP Systolic 2020-12-03 08:24:00 149 mm[Hg] BP Diastolic 2020-12-03 08:24:00 73 mm[Hg] Weight Measured 2020-12-03 08:24:00 168.60 pounds Height Measured 2020-12-03 08:24:00 64.96 inches Body Temperature 2020-12-03 08:24:00 98.30 degrees Heart Rate 2020-12-03 08:24:00 84.00 /min Respiratory Rate 2020-12-03 08:24:00 17.00 /min BP Systolic 2020-09-07 09:14:00 125 mm[Hg] BP Diastolic 2020-09-07 09:14:00 70 mm[Hg] Weight Measured 2020-09-07 09:14:00 165.60 pounds Height Measured 2020-09-07 09:14:00 64.96 inches Body Temperature 2020-09-07 09:14:00 98.70 degrees Heart Rate 2020-09-07 09:14:00 75.00 /min Respiratory Rate 2020-09-07 09:14:00 17.00 /min BP Systolic 2020-06-18 08:57:00 127 mm[Hg] BP Diastolic 2020-06-18 08:57:00 71 mm[Hg] Weight Measured 2020-06-18 08:57:00 Height Measured 2020-06-18 08:57:00 Body Temperature 2020-06-18 08:57:00 Heart Rate 2020-06-18 08:57:00 75.00 /min Respiratory Rate 2020-06-18 08:57:00 Procedures This patient has no known procedures. Plan of Care Planned Activity Planned Date Details Comments Source Goal Plan of Care Note [code = 21016-9] Goal Plan of Care Note [code = 43583-4] Goal Plan of Care Note [code = 31447-5] Goal Plan of Care Note [code = 30775-6] Goal Plan of Care Note [code = 48156-0] Goal Plan of Care Note [code = 40040-0] Goal Plan of Care Note [code = 74730-3] Goal Plan of Care Note [code = 49009-9] Goal Plan of Care Note [code = 81210-9] Goal Plan of Care Note [code = 48240-6] Goal Plan of Care Note [code = 71897-9] Goal Plan of Care Note [code = 92032-3] Goal Plan of Care Note [code = 76918-2] Goal Plan of Care Note [code = 62183-7] Goal Plan of Care Note [code = 74118-0] Goal Plan of Care Note [code = 80649-2] Goal Plan of Care Note [code = 10031-1] Goal Plan of Care Note [code = 47446-6] Goal Plan of Care Note [code = 92634-3] Goal Plan of Care Note [code = 26694-0] Goal Plan of Care Note [code = 18857-8] Goal Plan of Care Note [code = 11957-5] Goal Plan of Care Note [code = 69895-3] Goal Plan of Care Note [code = 96299-9] Goal Plan of Care Note [code = 56379-7] Goal Plan of Care Note [code = 48202-1] Goal Plan of Care Note [code = 46479-6] Goal Plan of Care Note [code = 33728-6] Goal Plan of Care Note [code = 13385-1] Goal Plan of Care Note [code = 18041-9] Goal Plan of Care Note [code = 31992-5] Goal Plan of Care Note [code = 87140-6] Goal Plan of Care Note [code = 11645-9] Goal Plan of Care Note [code = 60705-8] Goal Plan of Care Note [code = 84977-9] Goal Plan of Care Note [code = 86041-5] Goal Plan of Care Note [code = 69060-9] Goal Plan of Care Note [code = 99538-3] Goal Plan of Care Note [code = 41351-9] Goal Plan of Care Note [code = 80995-0] Goal Plan of Care Note [code = 71031-2] Goal Plan of Care Note [code = 50410-3] Goal Plan of Care Note [code = 00691-4] Goal Plan of Care Note [code = 90184-5] Goal Plan of Care Note [code = 20784-6] Goal Plan of Care Note [code = 07343-9] Goal Plan of Care Note [code = 24598-3] Goal Plan of Care Note [code = 43658-1] Goal Plan of Care Note [code = 97270-2] Goal Plan of Care Note [code = 12212-1] Goal Plan of Care Note [code = 70298-4] Goal Plan of Care Note [code = 99453-1] Goal Plan of Care Note [code = 69668-5] Goal Plan of Care Note [code = 95319-9] Goal Plan of Care Note [code = 79976-0] Goal Plan of Care Note [code = 34295-6] Goal Plan of Care Note [code = 24504-4] Goal Plan of Care Note [code = 96716-5] Goal Plan of Care Note [code = 42192-8] Goal Plan of Care Note [code = 90118-6] Goal Plan of Care Note [code = 75079-8] Goal Plan of Care Note [code = 40006-4] Goal Plan of Care Note [code = 79527-5] Goal Plan of Care Note [code = 29600-8] Goal Plan of Care Note [code = 20146-0] Goal Plan of Care Note [code = 22807-8] Goal Plan of Care Note [code = 32162-0] Goal Plan of Care Note [code = 35328-7] Goal Plan of Care Note [code = 87987-9] Goal Plan of Care Note [code = 35150-0] Goal Plan of Care Note [code = 75862-2] Goal Plan of Care Note [code = 00574-5] Goal Plan of Care Note [code = 53771-8] Goal Plan of Care Note [code = 09513-9] Goal Plan of Care Note [code = 18027-3] Goal Plan of Care Note [code = 08781-8] Goal Plan of Care Note [code = 23360-0] Goal Plan of Care Note [code = 60537-2] Goal Plan of Care Note [code = 15606-2] Goal Plan of Care Note [code = 63880-3] Goal Plan of Care Note [code = 09754-2] Goal Plan of Care Note [code = 47244-4] Goal Plan of Care Note [code = 20942-6] Goal Plan of Care Note [code = 09139-9] Goal Plan of Care Note [code = 73414-7] Goal Plan of Care Note [code = 30649-0] Goal Plan of Care Note [code = 35433-6] Goal Plan of Care Note [code = 35866-3] Goal Plan of Care Note [code = 62034-3] Goal Plan of Care Note [code = 83934-2] Goal Plan of Care Note [code = 74668-5] Goal Plan of Care Note [code = 85495-8] Goal Plan of Care Note [code = 53483-5] Goal Plan of Care Note [code = 51668-0] Goal Plan of Care Note [code = 64920-9] Goal Plan of Care Note [code = 49751-1] Goal Plan of Care Note [code = 74754-1] Goal Plan of Care Note [code = 80488-3] Goal Plan of Care Note [code = 75443-9] Goal Plan of Care Note [code = 05200-0] Goal Plan of Care Note [code = 57446-9] Goal Plan of Care Note [code = 86669-4] Goal Plan of Care Note [code = 24281-1] Goal Plan of Care Note [code = 62044-0] Goal Plan of Care Note [code = 02691-2] Goal Plan of Care Note [code = 32657-2] Encounters Start End Encounter Admission Attending Care Care Encounter Source Date/Time Date/Time Type Type Clinicians Facility Department ID 2022-12-12 2022-12-12 Outpatient SFA [facility] [id number] 023 Justice 11:01:15 11:01:15 0213 [facility] 2022-12-06 2022-12-06 Outpatient SFA SFA [id number] 023 Justice 08:18:29 08:18:29 0207 [facility] 2022-11-30 2022-11-30 Outpatient SFA SFA [id number] 023 Justice 13:44:40 13:44:40 0201 [facility] 2022-11-21 2022-11-21 Outpatient SFA SFA [id number] 023 Justice 13:14:42 13:14:42 0123 [facility] 2022-10-06 2022-10-06 Outpatient SFA SFA [id number] 022 Justice 15:08:31 15:08:31 1208 [facility] 2022-08-02 2022-08-02 Outpatient SFA SFA [id number] 022 Justice 16:15:48 16:15:48 1004 [facility] 2022-08-02 2022-08-02 Outpatient [id number]- [id number] hpz7xf-o 00:00:00 00:00:00 Visit l79p-6u85 39c-4b02-a -m333-9by 928-7bbe85 [id number] 5dv047 2022-07-29 2022-07-29 Outpatient S[facility] [id number] Hunt 09:32:39 09:32:39 0930 F Saul 2022-06-13 2022-06-13 Outpatient [id number]-r 00:00:00 00:00:00 Visit mv24-2d73 s77-3p48-4 -8745-42b 745-42b0af 1udohqt1i fdfa1e 2022-05-24 2022-05-24 Outpatient [id number]- [id number] qod566-0 00:00:00 00:00:00 Visit 9h09-725x b02-849n-i -xr27-7e5 h07-8s4518 856m60my4 a28af4 2022-05-21 2022-05-21 Outpatient z0brlj52- [id number] b1 rumh44-9 00:00:00 00:00:00 Visit 862f-48f5 62f-48f5-b -u135-d97 029-c73a3a q8i7u36m6 4d31c6 Results Test Description Test Time Test Comments Results Result Comments Source LIPID PANEL 2022-11-22 06:46:02 Test Item Value Reference Range Interpretation Comme nts CHOLESTEROL (test code = 2210) 163 MG/DL <200 TRIGLYCERIDES (test code = 2232) 80 MG/DL <150 HDL CHOLESTEROL (test code = 48 MG/DL >39 2220) CALC LDL CHOL (test code = 2237) 98 MG/DL <100 NOTE: CALCULATED LDL IS BASED ON DAYAMI-CAMPOS METHOD WHICHINCLUDES A DJUSTABLE TRIGLYCERIDE:VL DL CHOLESTEROL RATIO.THIS FACT OR VARIES BY MEASURED TRIGLY CERIDE AND NON-HDLCHOLESTE ROL CONCENTRATIONS WITH INCREASED CALCULATED LDL SEENIN HIGHER T RIGLYCERIDE OR LOWER NON-HDL S PECIMENS. FOR MOREINFORMATION , SEE CLIENT ANNOUNCEMENT AT [email or web address] LDL/HDL (test code = 2.04 RATIO <3.22 2237) COMPREHENSIVE METABOLIC [id number] 06:46:02 Test Item Value Reference Range Interpretation Comments GLUCOSE (test code = 114 MG/DL 70-99 H 2216) BUN (test code = 14 MG/DL 8-23 2207) CREATININE (test 0.65 MG/DL 0.60-1.30 code = 2214) eGFR (2020 CKD-EPI) 99 >60 (test code = 67503) ML/MIN/1.73 CALC BUN/CREAT (test 22 RATIO 6-28 code = 2235) SODIUM (test code = 143 MEQ/L 408-243 0407) POTASSIUM (test code 4.0 MEQ/L 3.5-5.4 = 2227) CHLORIDE (test code 105 MEQ/L 95-107 = 2214) CARBON DIOXIDE (test 25 MEQ/L 19-31 code = 220) CALCIUM (test code = 10.0 MG/DL 8.5-10.5 2208) PROTEIN, TOTAL (test 7.7 G/DL 6.1-8.3 code = 222) ALBUMIN (test code = 4.6 G/DL 3.5-5.2 2200) CALC GLOBULIN (test 3.1 G/DL 1.9-3.7 code = 2240) CALC A/G RATIO (test 1.5 RATIO 1.0-2.6 code = 2234) BILIRUBIN, TOTAL 0.2 MG/DL See_Comment [Automated message] (test code = 2207) The syste m which generated this result transmitted ref erence range: <=1.2. T he reference range was not used to int erpret this result as normal/abnormal . ALKALINE PHOSPHATASE 82 U/L 40-140 (test code = 220) AST (test code = 17 U/L 9-40 2217) ALT (test code = 11 U/L 5-40 UNLESS OTH ERWISE 2218) INDICATED, ALL TESTING PERFORM ED [facility] [place]. [address] [facility] [place], [place] [id number] [place] [address] DIRECTOR: JAYE SOTO M.D. CLIA NUMBER [id number] CAP ACCREDITATION N O. [id number] HEMOGLOBIN [id number] 03:10:16 Test Item Value Reference Range Interpretation Comments HEMOGLOBIN A1c (test 6.6 % 4.2-5.6 H [employer]ES code = 74882) ASSOCIATION IDELINES FOR HGB A1C: PREDIABETES/INC REASED RISK . . . . . . . 5.7 -6.4% DIAGNOSIS OF DI ABETES . . . . . . . . . >=6 .5% WITH CONFIRMATION OR APPROPRIATE SYMPTOMS NOTE: ASSAY MAY BE AFFECTED BY HEMOGLOBINOPATH IES (SICKLE CELL ANEMIA, S- C DISEASE, OTHERS) OR MYRIAM FICIALLY LOWERED BY DECR EASED RED CELL SURVIVAL ( HEMOLYTIC ANEMIAS, BLOOD LOSS, ETC.). CONSIDER ALTERN ATE TESTING OR LABORATORY C ONSULTATION. HEMOGLOBIN [id number] 11:21:58 Test Item Value Reference Range Interpretation Comments HEMOGLOBIN A1c (test 6.9 % 4.2-5.6 H [employer] [facility]ES code = 48804) ASSOCIATION IDELINES FOR HGB A1C: PREDIABETES/INC REASED RISK . . . . . . . 5.7 -6.4% DIAGNOSIS OF DI ABETES . . . . . . . . . >=6 .5% WITH CONFIRMATION OR APPROPRIATE SYMPTOMS NOTE: ASSAY MAY BE AFFECTED BY HEMOGLOBINOPATH IES (SICKLE CELL ANEMIA, S- C DISEASE, OTHERS) OR MYRIAM FICIALLY LOWERED BY DECR EASED RED CELL SURVIVAL ( HEMOLYTIC ANEMIAS, BLOOD LOSS, ETC.). CONSIDER ALTERN ATE TESTING OR LABORATORY C ONSULTATION. UNLESS OTHERWIS E INDICATED, ALL TESTING PER [facility] ATCLINICAL PATH [facility]. [address] [place] [address] [address] LAB[address]ATORY DIRE CTOR: JAYE SOTO M.D. CLIA NUMBER [id number] [place]. [id number] COMPREHENSIVE METABOLIC [id number] 06:26:27 Test Item Value Reference Range Interpretation Comments GLUCOSE (test code = 110 MG/DL 70-99 H 2216) BUN (test code = 20 MG/DL 06-21) CREATININE (test 0.64 MG/DL 0.60-1.30 code = 2214) eGFR (2020 CKD-EPI) 100 >60 (test code = 19885) ML/MIN/1.73 CALC BUN/CREAT (test 31 RATIO 6-28 H code = 2235) SODIUM (test code = 142 MEQ/L 309-155 6839) POTASSIUM (test code 4.6 MEQ/L 3.5-5.4 = 2227) CHLORIDE (test code 104 MEQ/L 95-107 = 221) CARBON DIOXIDE (test 26 MEQ/L 19-31 code = 2206) CALCIUM (test code = 9.8 MG/DL 8.5-10.5 2208) PROTEIN, TOTAL (test 7.2 G/DL 6.1-8.3 code = 222) ALBUMIN (test code = 4.3 G/DL 3.5-5.2 2200) CALC GLOBULIN (test 2.9 G/DL 1.9-3.7 code = 224) CALC A/G RATIO (test 1.5 RATIO 1.0-2.6 code = 223) BILIRUBIN, TOTAL 0.2 MG/DL See_Comment [Automated message] (test code = 220) The syste Foruforever which generated this result transmit darya reference range : <=1.2. The refe rence range was not u sed to interpret th is result as normal/abnormal . ALKALINE PHOSPHATASE 78 U/L 40-140 (test code = 220) AST (test code = 16 U/L 9-40 2217) ALT (test code = 11 U/L 5-40 2218) LIPID [id number] 06:26:27 Test Item Value Reference Range Interpretation Comments CHOLESTEROL (test 150 MG/DL <200 code = 2210) TRIGLYCERIDES (test 110 MG/DL <150 code = 2232) HDL CHOLESTEROL (test 42 MG/DL >39 code = 2220) CALC LDL CHOL (test 87 MG/DL <100 NOTE: C ALCULATED LDL code = 2237) IS BASED ON DAYAMI-CAMPOS METHOD WHICHINCLUDES ADJUSTABLE TRIGLYCERIDE:VL DL CHOLESTEROL RAT IO.THIS FACTOR VARIES B Y MEASURED TRIGLY CERIDE AND NON-HDLCHOL ESTEROL CONCENTRATIONS WITH INCREASED CALCU LATED LDL SEENIN HIGH ER TRIGLYCERIDE OR LOWER NON-HDL SPECIME NS. FOR MOREINFORMATION , SEE CLIENT ANNOUNCE MENT AT [email or web address] [email or web address] [email or web address] LDL/HDL 2.07 RATIO <3.22 (test code = 2238) COMPREHENSIVE METABOLIC [id number] 00:00:00 Test Item Value Reference Range Interpretation Comments GLUCOSE (test code = 2217) 110 MG/DL BUN (test code = 2208) 20 MG/DL CREATININE (test code = 2214) 0.64 MG/DL eGFR (2020 CKD-EPI) (test 100 ML/MIN/1.73 code = 92953) CALC BUN/CREAT (test code = 31 RATIO 2235) SODIUM (test code = 2231) 142 MEQ/L POTASSIUM (test code = 2228) 4.6 MEQ/L CHLORIDE (test code = 2215) 104 MEQ/L CARBON DIOXIDE (test code = 26 MEQ/L 2206) CALCIUM (test code = 2209) 9.8 MG/DL PROTEIN, TOTAL (test code = 7.2 G/DL 2228) ALBUMIN (test code = 2201) 4.3 G/DL CALC GLOBULIN (test code = 2.9 G/DL 2240) CALC A/G RATIO (test code = 1.5 RATIO 2234) BILIRUBIN, TOTAL (test code = 0.2 MG/DL 2206) ALKALINE PHOSPHATASE (test 78 U/L code = 2204) AST (test code = 2218) 16 U/L ALT (test code = 2219) 11 U/L COMPREHENSIVE METABOLIC [id number] 00:00:00 Test Item Value Reference Range Interpretation Comments GLUCOSE (test code = 2217) 110 MG/DL BUN (test code = 2208) 20 MG/DL CREATININE (test code = 2214) 0.64 MG/DL eGFR (2020 CKD-EPI) (test 100 ML/MIN/1.73 code = 57003) CALC BUN/CREAT (test code = 31 RATIO 2235) SODIUM (test code = 2231) 142 MEQ/L POTASSIUM (test code = 2228) 4.6 MEQ/L CHLORIDE (test code = 2215) 104 MEQ/L CARBON DIOXIDE (test code = 26 MEQ/L 2206) CALCIUM (test code = 2209) 9.8 MG/DL PROTEIN, TOTAL (test code = 7.2 G/DL 2228) ALBUMIN (test code = 2201) 4.3 G/DL CALC GLOBULIN (test code = 2.9 G/DL 2240) CALC A/G RATIO (test code = 1.5 RATIO 2234) BILIRUBIN, TOTAL (test code = 0.2 MG/DL 2206) ALKALINE PHOSPHATASE (test 78 U/L code = 2204) AST (test code = 2218) 16 U/L ALT (test code = 2219) 11 U/L LIPID [id number] 00:00:00 Test Item Value Reference Range Interpretation Comments CHOLESTEROL (test code = 2210) 150 MG/DL TRIGLYCERIDES (test code = 2232) 110 MG/DL HDL CHOLESTEROL (test code = 2220) 42 MG/DL CALC LDL CHOL (test code = 2237) 87 MG/DL RISK RATIO LDL/HDL (test code = 2.07 RATIO 2238) LIPID [id number] 00:00:00 Test Item Value Reference Range Interpretation Comments CHOLESTEROL (test code = 2210) 150 MG/DL TRIGLYCERIDES (test code = 2232) 110 MG/DL HDL CHOLESTEROL (test code = 2220) 42 MG/DL CALC LDL CHOL (test code = 2237) 87 MG/DL RISK RATIO LDL/HDL (test code = 2.07 RATIO 2238) HEMOGLOBIN [id number] 00:00:00 Test Item Value Reference Range Interpretation Comments HEMOGLOBIN A1c (test code = 35409) 6.9 % HEMOGLOBIN [id number] 00:00:00 Test Item Value Reference Range Interpretation Comments HEMOGLOBIN A1c (test code = 28136) 6.9 % HEMOGLOBIN [id number] 00:00:00 Test Item Value Reference Range Interpretation Comments HEMOGLOBIN A1c (test code = 16314) 6.9 % COMPREHENSIVE METABOLIC [id number] 00:00:00 Test Item Value Reference Range Interpretation Comments GLUCOSE (test code = 2217) 110 MG/DL BUN (test code = 2208) 20 MG/DL CREATININE (test code = 2214) 0.64 MG/DL eGFR (2020 CKD-EPI) (test 100 ML/MIN/1.73 code = 49986) CALC BUN/CREAT (test code = 31 RATIO 5) SODIUM (test code = 2231) 142 MEQ/L POTASSIUM (test code = 2228) 4.6 MEQ/L CHLORIDE (test code = 2215) 104 MEQ/L CARBON DIOXIDE (test code = 26 MEQ/L 2205) CALCIUM (test code = 2209) 9.8 MG/DL PROTEIN, TOTAL (test code = 7.2 G/DL 2228) ALBUMIN (test code = 2201) 4.3 G/DL CALC GLOBULIN (test code = 2.9 G/DL 2240) CALC A/G RATIO (test code = 1.5 RATIO 2234) BILIRUBIN, TOTAL (test code = 0.2 MG/DL 2206) ALKALINE PHOSPHATASE (test 78 U/L code = 2204) AST (test code = 2218) 16 U/L ALT (test code = 2219) 11 U/L COMPREHENSIVE METABOLIC [id number] 00:00:00 Test Item Value Reference Range Interpretation Comments GLUCOSE (test code = 2217) 110 MG/DL BUN (test code = 2208) 20 MG/DL CREATININE (test code = 2214) 0.64 MG/DL eGFR (2020 CKD-EPI) (test 100 ML/MIN/1.73 code = 29005) CALC BUN/CREAT (test code = 31 RATIO 2235) SODIUM (test code = 2231) 142 MEQ/L POTASSIUM (test code = 2228) 4.6 MEQ/L CHLORIDE (test code = 2215) 104 MEQ/L CARBON DIOXIDE (test code = 26 MEQ/L 2205) CALCIUM (test code = 2209) 9.8 MG/DL PROTEIN, TOTAL (test code = 7.2 G/DL 2228) ALBUMIN (test code = 2201) 4.3 G/DL CALC GLOBULIN (test code = 2.9 G/DL 2240) CALC A/G RATIO (test code = 1.5 RATIO 2234) BILIRUBIN, TOTAL (test code = 0.2 MG/DL 2206) ALKALINE PHOSPHATASE (test 78 U/L code = 2204) AST (test code = 2218) 16 U/L ALT (test code = 2219) 11 U/L LIPID [id number] 00:00:00 Test Item Value Reference Range Interpretation Comments CHOLESTEROL (test code = 2210) 150 MG/DL TRIGLYCERIDES (test code = 2232) 110 MG/DL HDL CHOLESTEROL (test code = 2220) 42 MG/DL CALC LDL CHOL (test code = 2237) 87 MG/DL RISK RATIO LDL/HDL (test code = 2.07 RATIO 2238) LIPID [id number] 00:00:00 Test Item Value Reference Range Interpretation Comments CHOLESTEROL (test code = 2210) 150 MG/DL TRIGLYCERIDES (test code = 2232) 110 MG/DL HDL CHOLESTEROL (test code = 2220) 42 MG/DL CALC LDL CHOL (test code = 2237) 87 MG/DL RISK RATIO LDL/HDL (test code = 2.07 RATIO 2238) HEMOGLOBIN [id number] 00:00:00 Test Item Value Reference Range Interpretation Comments HEMOGLOBIN A1c (test code = 22999) 6.9 % HEMOGLOBIN [id number] 00:00:00 Test Item Value Reference Range Interpretation Comments HEMOGLOBIN A1c (test code = 04975) 6.9 % HEMOGLOBIN [id number] 00:00:00 Test Item Value Reference Range Interpretation Comments HEMOGLOBIN A1c (test code = 23752) 6.9 % COMPREHENSIVE METABOLIC [id number] 00:00:00 Test Item Value Reference Range Interpretation Comments GLUCOSE (test code = 2217) 100 MG/DL BUN (test code = 2208) 12 MG/DL CREATININE (test code = 2214) 0.48 MG/DL eGFR (2020 CKD-EPI) (test 108 ML/MIN/1.73 code = 62660) CALC BUN/CREAT (test code = 25 RATIO 2235) SODIUM (test code = 2231) 145 MEQ/L POTASSIUM (test code = 2228) 4.2 MEQ/L CHLORIDE (test code = 2215) 105 MEQ/L CARBON DIOXIDE (test code = 29 MEQ/L 2205) CALCIUM (test code = 2209) 9.8 MG/DL PROTEIN, TOTAL (test code = 7.5 G/DL 2228) ALBUMIN (test code = 2201) 4.4 G/DL CALC GLOBULIN (test code = 3.1 G/DL 2239) CALC A/G RATIO (test code = 1.4 RATIO 2234) BILIRUBIN, TOTAL (test code = 0.3 MG/DL 2206) ALKALINE PHOSPHATASE (test 92 U/L code = 2204) AST (test code = 2218) 16 U/L ALT (test code = 2219) 14 U/L LIPID [id number] 00:00:00 Test Item Value Reference Range Interpretation Comments CHOLESTEROL (test code = 2210) 164 MG/DL TRIGLYCERIDES (test code = 2232) 105 MG/DL HDL CHOLESTEROL (test code = 2220) 46 MG/DL CALC LDL CHOL (test code = 2237) 98 MG/DL RISK RATIO LDL/HDL (test code = 2.13 RATIO 2238) HEMOGLOBIN [id number] 00:00:00 Test Item Value Reference Range Interpretation Comments HEMOGLOBIN A1c (test code = 39534) 6.6 % HEMOGLOBIN [id number] 00:00:00 Test Item Value Reference Range Interpretation Comments HEMOGLOBIN A1c (test code = 10803) 6.6 % [id number] 00:00:00 Test Item Value Reference Range Interpretation Comments TSH, THIRD GENERATION (test code 1.070 UIU/ML = 2821) [id number] 00:00:00 Test Item Value Reference Range Interpretation Comments TSH, THIRD GENERATION (test code 1.070 UIU/ML = 2821) VITAMIN D, 25 [id number] 00:00:00 Test Item Value Reference Range Interpretation Comments VITAMIN D, 25 OH (test code = 4958) 25 NG/ML CBC W/AUTO [id number] 00:00:00 Test Item Value Reference Range Interpretation Comments WBC (test code = 1001) 6.5 K/UL RBC (test code = 1002) 4.04 M/UL HEMOGLOBIN (test code = 1003) 12.4 G/DL HEMATOCRIT (test code = 1004) 36.4 % MCV (test code = 1005) 90.1 fL MCH (test code = 1006) 30.7 PG MCHC (test code = 1007) 34.1 G/DL RDW (test code = 1038) 12.9 % NEUTROPHILS (test code = 1008) 56.7 % LYMPHOCYTES (test code = 1010) 33.3 % MONOCYTES (test code = 1011) 6.9 % EOSINOPHILS (test code = 1012) 2.3 % BASOPHILS (test code = 1013) 0.6 % IMMATURE GRANULOCYTES (test 0.2 % code = 1036) NUCLEATED RBCS (test code = 0.0 /100WBC'S 1065) PLATELET COUNT (test code = 187 K/UL 1015) ABSOLUTE NEUTROPHILS (test code 3.71 K/UL = 1066) ABSOLUTE LYMPHOCYTES (test code 2.18 K/UL = 1067) ABSOLUTE MONOCYTES (test code = 0.45 K/UL 1068) ABSOLUTE EOSINOPHILS (test code 0.15 K/UL = 1040) ABSOLUTE BASOPHILS (test code = 0.04 K/UL 1069) ABS IMMATURE GRANULOCYTES (test 0.01 K/UL code = 1020) ABS NUCLEATED RBCS (test code = 0.00 K/UL 95136) CBC W/AUTO [id number] 00:00:00 Test Item Value Reference Range Interpretation Comments WBC (test code = 1001) 6.5 K/UL RBC (test code = 1002) 4.04 M/UL HEMOGLOBIN (test code = 1003) 12.4 G/DL HEMATOCRIT (test code = 1004) 36.4 % MCV (test code = 1005) 90.1 fL MCH (test code = 1006) 30.7 PG MCHC (test code = 1007) 34.1 G/DL RDW (test code = 1038) 12.9 % NEUTROPHILS (test code = 1008) 56.7 % LYMPHOCYTES (test code = 1010) 33.3 % MONOCYTES (test code = 1011) 6.9 % EOSINOPHILS (test code = 1012) 2.3 % BASOPHILS (test code = 1013) 0.6 % IMMATURE GRANULOCYTES (test 0.2 % code = 1036) NUCLEATED RBCS (test code = 0.0 /100WBC'S 1065) PLATELET COUNT (test code = 187 K/UL 1015) ABSOLUTE NEUTROPHILS (test code 3.71 K/UL = 1066) ABSOLUTE LYMPHOCYTES (test code 2.18 K/UL = 1067) ABSOLUTE MONOCYTES (test code = 0.45 K/UL 1068) ABSOLUTE EOSINOPHILS (test code 0.15 K/UL = 1040) ABSOLUTE BASOPHILS (test code = 0.04 K/UL 1069) ABS IMMATURE GRANULOCYTES (test 0.01 K/UL code = 1020) ABS NUCLEATED RBCS (test code = 0.00 K/UL 48445) COMPREHENSIVE METABOLIC [id number] 00:00:00 Test Item Value Reference Range Interpretation Comments GLUCOSE (test code = 2217) 100 MG/DL BUN (test code = 2208) 12 MG/DL CREATININE (test code = 2214) 0.48 MG/DL eGFR (2020 CKD-EPI) (test 108 ML/MIN/1.73 code = 20720) CALC BUN/CREAT (test code = 25 RATIO 2235) SODIUM (test code = 2231) 145 MEQ/L POTASSIUM (test code = 2228) 4.2 MEQ/L CHLORIDE (test code = 2215) 105 MEQ/L CARBON DIOXIDE (test code = 29 MEQ/L 2205) CALCIUM (test code = 2209) 9.8 MG/DL PROTEIN, TOTAL (test code = 7.5 G/DL 2228) ALBUMIN (test code = 2201) 4.4 G/DL CALC GLOBULIN (test code = 3.1 G/DL 2240) CALC A/G RATIO (test code = 1.4 RATIO 2234) BILIRUBIN, TOTAL (test code = 0.3 MG/DL 2206) ALKALINE PHOSPHATASE (test 92 U/L code = 2204) AST (test code = 2218) 16 U/L ALT (test code = 2219) 14 U/L COMPREHENSIVE METABOLIC [id number] 00:00:00 Test Item Value Reference Range Interpretation Comments GLUCOSE (test code = 2217) 100 MG/DL BUN (test code = 2208) 12 MG/DL CREATININE (test code = 2214) 0.48 MG/DL eGFR (2020 CKD-EPI) (test 108 ML/MIN/1.73 code = 68002) CALC BUN/CREAT (test code = 25 RATIO 2235) SODIUM (test code = 2231) 145 MEQ/L POTASSIUM (test code = 2228) 4.2 MEQ/L CHLORIDE (test code = 2215) 105 MEQ/L CARBON DIOXIDE (test code = 29 MEQ/L 2205) CALCIUM (test code = 2209) 9.8 MG/DL PROTEIN, TOTAL (test code = 7.5 G/DL 2228) ALBUMIN (test code = 2201) 4.4 G/DL CALC GLOBULIN (test code = 3.1 G/DL 2240) CALC A/G RATIO (test code = 1.4 RATIO 2234) BILIRUBIN, TOTAL (test code = 0.3 MG/DL 2206) ALKALINE PHOSPHATASE (test 92 U/L code = 2204) AST (test code = 2218) 16 U/L ALT (test code = 2219) 14 U/L LIPID [id number] 00:00:00 Test Item Value Reference Range Interpretation Comments CHOLESTEROL (test code = 2210) 164 MG/DL TRIGLYCERIDES (test code = 2232) 105 MG/DL HDL CHOLESTEROL (test code = 2220) 46 MG/DL CALC LDL CHOL (test code = 2237) 98 MG/DL RISK RATIO LDL/HDL (test code = 2.13 RATIO 2238) LIPID [id number] 00:00:00 Test Item Value Reference Range Interpretation Comments CHOLESTEROL (test code = 2210) 164 MG/DL TRIGLYCERIDES (test code = 2232) 105 MG/DL HDL CHOLESTEROL (test code = 2220) 46 MG/DL CALC LDL CHOL (test code = 2237) 98 MG/DL RISK RATIO LDL/HDL (test code = 2.13 RATIO 2238) HEMOGLOBIN [id number] 00:00:00 Test Item Value Reference Range Interpretation Comments HEMOGLOBIN A1c (test code = 53204) 6.6 % HEMOGLOBIN [id number] 00:00:00 Test Item Value Reference Range Interpretation Comments HEMOGLOBIN A1c (test code = 94815) 6.6 % HEMOGLOBIN [id number] 00:00:00 Test Item Value Reference Range Interpretation Comments HEMOGLOBIN A1c (test code = 93311) 6.6 % [id number] 00:00:00 Test Item Value Reference Range Interpretation Comments TSH, THIRD GENERATION (test code 1.070 UIU/ML = 2821) [id number] 00:00:00 Test Item Value Reference Range Interpretation Comments TSH, THIRD GENERATION (test code 1.070 UIU/ML = 2821) [id number] 00:00:00 Test Item Value Reference Range Interpretation Comments TSH, THIRD GENERATION (test code 1.070 UIU/ML = 2821) VITAMIN D, 25 [id number] 00:00:00 Test Item Value Reference Range Interpretation Comments VITAMIN D, 25 OH (test code = 4958) 25 NG/ML VITAMIN D, 25 [id number] 00:00:00 Test Item Value Reference Range Interpretation Comments VITAMIN D, 25 OH (test code = 4958) 25 NG/ML CBC W/AUTO [id number] 00:00:00 Test Item Value Reference Range Interpretation Comments WBC (test code = 1001) 6.5 K/UL RBC (test code = 1002) 4.04 M/UL HEMOGLOBIN (test code = 1003) 12.4 G/DL HEMATOCRIT (test code = 1004) 36.4 % MCV (test code = 1005) 90.1 fL MCH (test code = 1006) 30.7 PG MCHC (test code = 1007) 34.1 G/DL RDW (test code = 1038) 12.9 % NEUTROPHILS (test code = 1008) 56.7 % LYMPHOCYTES (test code = 1010) 33.3 % MONOCYTES (test code = 1011) 6.9 % EOSINOPHILS (test code = 1012) 2.3 % BASOPHILS (test code = 1013) 0.6 % IMMATURE GRANULOCYTES (test 0.2 % code = 1036) NUCLEATED RBCS (test code = 0.0 /100WBC'S 1065) PLATELET COUNT (test code = 187 K/UL 1015) ABSOLUTE NEUTROPHILS (test code 3.71 K/UL = 1066) ABSOLUTE LYMPHOCYTES (test code 2.18 K/UL = 1067) ABSOLUTE MONOCYTES (test code = 0.45 K/UL 1068) ABSOLUTE EOSINOPHILS (test code 0.15 K/UL = 1040) ABSOLUTE BASOPHILS (test code = 0.04 K/UL 1069) ABS IMMATURE GRANULOCYTES (test 0.01 K/UL code = 1020) ABS NUCLEATED RBCS (test code = 0.00 K/UL 57222) CBC W/AUTO [id number] 00:00:00 Test Item Value Reference Range Interpretation Comments WBC (test code = 1001) 6.5 K/UL RBC (test code = 1002) 4.04 M/UL HEMOGLOBIN (test code = 1003) 12.4 G/DL HEMATOCRIT (test code = 1004) 36.4 % MCV (test code = 1005) 90.1 fL MCH (test code = 1006) 30.7 PG MCHC (test code = 1007) 34.1 G/DL RDW (test code = 1038) 12.9 % NEUTROPHILS (test code = 1008) 56.7 % LYMPHOCYTES (test code = 1010) 33.3 % MONOCYTES (test code = 1011) 6.9 % EOSINOPHILS (test code = 1012) 2.3 % BASOPHILS (test code = 1013) 0.6 % IMMATURE GRANULOCYTES (test 0.2 % code = 1036) NUCLEATED RBCS (test code = 0.0 /100WBC'S 1065) PLATELET COUNT (test code = 187 K/UL 1015) ABSOLUTE NEUTROPHILS (test code 3.71 K/UL = 1066) ABSOLUTE LYMPHOCYTES (test code 2.18 K/UL = 1067) ABSOLUTE MONOCYTES (test code = 0.45 K/UL 1068) ABSOLUTE EOSINOPHILS (test code 0.15 K/UL = 1040) ABSOLUTE BASOPHILS (test code = 0.04 K/UL 1069) ABS IMMATURE GRANULOCYTES (test 0.01 K/UL code = 1020) ABS NUCLEATED RBCS (test code = 0.00 K/UL 56526) CBC W/AUTO [id number] 00:00:00 Test Item Value Reference Range Interpretation Comments WBC (test code = 1001) 6.5 K/UL RBC (test code = 1002) 4.04 M/UL HEMOGLOBIN (test code = 1003) 12.4 G/DL HEMATOCRIT (test code = 1004) 36.4 % MCV (test code = 1005) 90.1 fL MCH (test code = 1006) 30.7 PG MCHC (test code = 1007) 34.1 G/DL RDW (test code = 1038) 12.9 % NEUTROPHILS (test code = 1008) 56.7 % LYMPHOCYTES (test code = 1010) 33.3 % MONOCYTES (test code = 1011) 6.9 % EOSINOPHILS (test code = 1012) 2.3 % BASOPHILS (test code = 1013) 0.6 % IMMATURE GRANULOCYTES (test 0.2 % code = 1036) NUCLEATED RBCS (test code = 0.0 /100WBC'S 1065) PLATELET COUNT (test code = 187 K/UL 1015) ABSOLUTE NEUTROPHILS (test code 3.71 K/UL = 1066) ABSOLUTE LYMPHOCYTES (test code 2.18 K/UL = 1067) ABSOLUTE MONOCYTES (test code = 0.45 K/UL 1068) ABSOLUTE EOSINOPHILS (test code 0.15 K/UL = 1040) ABSOLUTE BASOPHILS (test code = 0.04 K/UL 1069) ABS IMMATURE GRANULOCYTES (test 0.01 K/UL code = 1020) ABS NUCLEATED RBCS (test code = 0.00 K/UL 29469) COMPREHENSIVE METABOLIC [id number] 00:00:00 Test Item Value Reference Range Interpretation Comments GLUCOSE (test code = 2217) 100 MG/DL BUN (test code = 2208) 12 MG/DL CREATININE (test code = 2214) 0.48 MG/DL eGFR (2020 CKD-EPI) (test 108 ML/MIN/1.73 code = 50979) CALC BUN/CREAT (test code = 25 RATIO 2235) SODIUM (test code = 2231) 145 MEQ/L POTASSIUM (test code = 2228) 4.2 MEQ/L CHLORIDE (test code = 2215) 105 MEQ/L CARBON DIOXIDE (test code = 29 MEQ/L 220) CALCIUM (test code = 2209) 9.8 MG/DL PROTEIN, TOTAL (test code = 7.5 G/DL 2228) ALBUMIN (test code = 2201) 4.4 G/DL CALC GLOBULIN (test code = 3.1 G/DL 2240) CALC A/G RATIO (test code = 1.4 RATIO 2234) BILIRUBIN, TOTAL (test code = 0.3 MG/DL 2206) ALKALINE PHOSPHATASE (test 92 U/L code = 2204) AST (test code = 2218) 16 U/L ALT (test code = 2219) 14 U/L COMPREHENSIVE METABOLIC [id number] 00:00:00 Test Item Value Reference Range Interpretation Comments GLUCOSE (test code = 2217) 100 MG/DL BUN (test code = 2208) 12 MG/DL CREATININE (test code = 2214) 0.48 MG/DL eGFR (2020 CKD-EPI) (test 108 ML/MIN/1.73 code = 57758) CALC BUN/CREAT (test code = 25 RATIO 2235) SODIUM (test code = 2231) 145 MEQ/L POTASSIUM (test code = 2228) 4.2 MEQ/L CHLORIDE (test code = 2215) 105 MEQ/L CARBON DIOXIDE (test code = 29 MEQ/L 2205) CALCIUM (test code = 2209) 9.8 MG/DL PROTEIN, TOTAL (test code = 7.5 G/DL 2228) ALBUMIN (test code = 2201) 4.4 G/DL CALC GLOBULIN (test code = 3.1 G/DL 2240) CALC A/G RATIO (test code = 1.4 RATIO 2234) BILIRUBIN, TOTAL (test code = 0.3 MG/DL 2206) ALKALINE PHOSPHATASE (test 92 U/L code = 2204) AST (test code = 2218) 16 U/L ALT (test code = 2219) 14 U/L LIPID [id number] 00:00:00 Test Item Value Reference Range Interpretation Comments CHOLESTEROL (test code = 2210) 164 MG/DL TRIGLYCERIDES (test code = 2232) 105 MG/DL HDL CHOLESTEROL (test code = 2220) 46 MG/DL CALC LDL CHOL (test code = 2237) 98 MG/DL RISK RATIO LDL/HDL (test code = 2.13 RATIO 2238) LIPID [id number] 00:00:00 Test Item Value Reference Range Interpretation Comments CHOLESTEROL (test code = 2210) 164 MG/DL TRIGLYCERIDES (test code = 2232) 105 MG/DL HDL CHOLESTEROL (test code = 2220) 46 MG/DL CALC LDL CHOL (test code = 2237) 98 MG/DL RISK RATIO LDL/HDL (test code = 2.13 RATIO 2238) HEMOGLOBIN [id number] 00:00:00 Test Item Value Reference Range Interpretation Comments HEMOGLOBIN A1c (test code = 59430) 6.6 % HEMOGLOBIN [id number] 00:00:00 Test Item Value Reference Range Interpretation Comments HEMOGLOBIN A1c (test code = 81796) 6.6 % HEMOGLOBIN [id number] 00:00:00 Test Item Value Reference Range Interpretation Comments HEMOGLOBIN A1c (test code = 58874) 6.6 % [id number] 00:00:00 Test Item Value Reference Range Interpretation Comments TSH, THIRD GENERATION (test code 1.070 UIU/ML = 2821) [id number] 00:00:00 Test Item Value Reference Range Interpretation Comments TSH, THIRD GENERATION (test code 1.070 UIU/ML = 2821) [id number] 00:00:00 Test Item Value Reference Range Interpretation Comments TSH, THIRD GENERATION (test code 1.070 UIU/ML = 2821) VITAMIN D, 25 [id number] 00:00:00 Test Item Value Reference Range Interpretation Comments VITAMIN D, 25 OH (test code = 4958) 25 NG/ML VITAMIN D, 25 [id number] 00:00:00 Test Item Value Reference Range Interpretation Comments VITAMIN D, 25 OH (test code = 4958) 25 NG/ML CBC W/AUTO [id number] 00:00:00 Test Item Value Reference Range Interpretation Comments WBC (test code = 1001) 6.5 K/UL RBC (test code = 1002) 4.04 M/UL HEMOGLOBIN (test code = 1003) 12.4 G/DL HEMATOCRIT (test code = 1004) 36.4 % MCV (test code = 1005) 90.1 fL MCH (test code = 1006) 30.7 PG MCHC (test code = 1007) 34.1 G/DL RDW (test code = 1038) 12.9 % NEUTROPHILS (test code = 1008) 56.7 % LYMPHOCYTES (test code = 1010) 33.3 % MONOCYTES (test code = 1011) 6.9 % EOSINOPHILS (test code = 1012) 2.3 % BASOPHILS (test code = 1013) 0.6 % IMMATURE GRANULOCYTES (test 0.2 % code = 1036) NUCLEATED RBCS (test code = 0.0 /100WBC'S 1065) PLATELET COUNT (test code = 187 K/UL 1015) ABSOLUTE NEUTROPHILS (test code 3.71 K/UL = 1066) ABSOLUTE LYMPHOCYTES (test code 2.18 K/UL = 1067) ABSOLUTE MONOCYTES (test code = 0.45 K/UL 1068) ABSOLUTE EOSINOPHILS (test code 0.15 K/UL = 1040) ABSOLUTE BASOPHILS (test code = 0.04 K/UL 1069) ABS IMMATURE GRANULOCYTES (test 0.01 K/UL code = 1020) ABS NUCLEATED RBCS (test code = 0.00 K/UL 25571) CBC W/AUTO [id number] 00:00:00 Test Item Value Reference Range Interpretation Comments WBC (test code = 1001) 6.5 K/UL RBC (test code = 1002) 4.04 M/UL HEMOGLOBIN (test code = 1003) 12.4 G/DL HEMATOCRIT (test code = 1004) 36.4 % MCV (test code = 1005) 90.1 fL MCH (test code = 1006) 30.7 PG MCHC (test code = 1007) 34.1 G/DL RDW (test code = 1038) 12.9 % NEUTROPHILS (test code = 1008) 56.7 % LYMPHOCYTES (test code = 1010) 33.3 % MONOCYTES (test code = 1011) 6.9 % EOSINOPHILS (test code = 1012) 2.3 % BASOPHILS (test code = 1013) 0.6 % IMMATURE GRANULOCYTES (test 0.2 % code = 1036) NUCLEATED RBCS (test code = 0.0 /100WBC'S 1065) PLATELET COUNT (test code = 187 K/UL 1015) ABSOLUTE NEUTROPHILS (test code 3.71 K/UL = 1066) ABSOLUTE LYMPHOCYTES (test code 2.18 K/UL = 1067) ABSOLUTE MONOCYTES (test code = 0.45 K/UL 1068) ABSOLUTE EOSINOPHILS (test code 0.15 K/UL = 1040) ABSOLUTE BASOPHILS (test code = 0.04 K/UL 1069) ABS IMMATURE GRANULOCYTES (test 0.01 K/UL code = 1020) ABS NUCLEATED RBCS (test code = 0.00 K/UL 90676) CBC W/AUTO [id number] 00:00:00 Test Item Value Reference Range Interpretation Comments WBC (test code = 1001) 6.5 K/UL RBC (test code = 1002) 4.04 M/UL HEMOGLOBIN (test code = 1003) 12.4 G/DL HEMATOCRIT (test code = 1004) 36.4 % MCV (test code = 1005) 90.1 fL MCH (test code = 1006) 30.7 PG MCHC (test code = 1007) 34.1 G/DL RDW (test code = 1038) 12.9 % NEUTROPHILS (test code = 1008) 56.7 % LYMPHOCYTES (test code = 1010) 33.3 % MONOCYTES (test code = 1011) 6.9 % EOSINOPHILS (test code = 1012) 2.3 % BASOPHILS (test code = 1013) 0.6 % IMMATURE GRANULOCYTES (test 0.2 % code = 1036) NUCLEATED RBCS (test code = 0.0 /100WBC'S 1065) PLATELET COUNT (test code = 187 K/UL 1015) ABSOLUTE NEUTROPHILS (test code 3.71 K/UL = 1066) ABSOLUTE LYMPHOCYTES (test code 2.18 K/UL = 1067) ABSOLUTE MONOCYTES (test code = 0.45 K/UL 1068) ABSOLUTE EOSINOPHILS (test code 0.15 K/UL = 1040) ABSOLUTE BASOPHILS (test code = 0.04 K/UL 1069) ABS IMMATURE GRANULOCYTES (test 0.01 K/UL code = 1020) ABS NUCLEATED RBCS (test code = 0.00 K/UL 33978) COMPREHENSIVE METABOLIC [id number] 00:00:00 Test Item Value Reference Range Interpretation Comments GLUCOSE (test code = 2217) 100 MG/DL BUN (test code = 2208) 12 MG/DL CREATININE (test code = 2214) 0.48 MG/DL eGFR (2020 CKD-EPI) (test 108 ML/MIN/1.73 code = 44195) CALC BUN/CREAT (test code = 25 RATIO 2235) SODIUM (test code = 2231) 145 MEQ/L POTASSIUM (test code = 2228) 4.2 MEQ/L CHLORIDE (test code = 2215) 105 MEQ/L CARBON DIOXIDE (test code = 29 MEQ/L 2206) CALCIUM (test code = 2209) 9.8 MG/DL PROTEIN, TOTAL (test code = 7.5 G/DL 2228) ALBUMIN (test code = 2201) 4.4 G/DL CALC GLOBULIN (test code = 3.1 G/DL 2240) CALC A/G RATIO (test code = 1.4 RATIO 2234) BILIRUBIN, TOTAL (test code = 0.3 MG/DL 2206) ALKALINE PHOSPHATASE (test 92 U/L code = 2204) AST (test code = 2218) 16 U/L ALT (test code = 2219) 14 U/L COMPREHENSIVE METABOLIC [id number] 00:00:00 Test Item Value Reference Range Interpretation Comments GLUCOSE (test code = 2217) 100 MG/DL BUN (test code = 2208) 12 MG/DL CREATININE (test code = 2214) 0.48 MG/DL eGFR (2020 CKD-EPI) (test 108 ML/MIN/1.73 code = 50168) CALC BUN/CREAT (test code = 25 RATIO 2235) SODIUM (test code = 2231) 145 MEQ/L POTASSIUM (test code = 2228) 4.2 MEQ/L CHLORIDE (test code = 2215) 105 MEQ/L CARBON DIOXIDE (test code = 29 MEQ/L 2205) CALCIUM (test code = 2209) 9.8 MG/DL PROTEIN, TOTAL (test code = 7.5 G/DL 2228) ALBUMIN (test code = 2201) 4.4 G/DL CALC GLOBULIN (test code = 3.1 G/DL 2240) CALC A/G RATIO (test code = 1.4 RATIO 2234) BILIRUBIN, TOTAL (test code = 0.3 MG/DL 2206) ALKALINE PHOSPHATASE (test 92 U/L code = 2204) AST (test code = 2218) 16 U/L ALT (test code = 2219) 14 U/L LIPID [id number] 00:00:00 Test Item Value Reference Range Interpretation Comments CHOLESTEROL (test code = 2210) 164 MG/DL TRIGLYCERIDES (test code = 2232) 105 MG/DL HDL CHOLESTEROL (test code = 2220) 46 MG/DL CALC LDL CHOL (test code = 2237) 98 MG/DL RISK RATIO LDL/HDL (test code = 2.13 RATIO 2238) LIPID [id number] 00:00:00 Test Item Value Reference Range Interpretation Comments CHOLESTEROL (test code = 2210) 164 MG/DL TRIGLYCERIDES (test code = 2232) 105 MG/DL HDL CHOLESTEROL (test code = 2220) 46 MG/DL CALC LDL CHOL (test code = 2237) 98 MG/DL RISK RATIO LDL/HDL (test code = 2.13 RATIO 2238) HEMOGLOBIN [id number] 00:00:00 Test Item Value Reference Range Interpretation Comments HEMOGLOBIN A1c (test code = 62012) 6.6 % HEMOGLOBIN [id number] 00:00:00 Test Item Value Reference Range Interpretation Comments HEMOGLOBIN A1c (test code = 10438) 6.6 % HEMOGLOBIN [id number] 00:00:00 Test Item Value Reference Range Interpretation Comments HEMOGLOBIN A1c (test code = 14993) 6.6 % [id number] 00:00:00 Test Item Value Reference Range Interpretation Comments TSH, THIRD GENERATION (test code 1.070 UIU/ML = 2821) [id number] 00:00:00 Test Item Value Reference Range Interpretation Comments TSH, THIRD GENERATION (test code 1.070 UIU/ML = 2821) [id number] 00:00:00 Test Item Value Reference Range Interpretation Comments TSH, THIRD GENERATION (test code 1.070 UIU/ML = 2821) VITAMIN D, 25 [id number] 00:00:00 Test Item Value Reference Range Interpretation Comments VITAMIN D, 25 OH (test code = 4958) 25 NG/ML VITAMIN D, 25 [id number] 00:00:00 Test Item Value Reference Range Interpretation Comments VITAMIN D, 25 OH (test code = 4958) 25 NG/ML CBC W/AUTO [id number] 00:00:00 Test Item Value Reference Range Interpretation Comments WBC (test code = 1001) 6.5 K/UL RBC (test code = 1002) 4.04 M/UL HEMOGLOBIN (test code = 1003) 12.4 G/DL HEMATOCRIT (test code = 1004) 36.4 % MCV (test code = 1005) 90.1 fL MCH (test code = 1006) 30.7 PG MCHC (test code = 1007) 34.1 G/DL RDW (test code = 1038) 12.9 % NEUTROPHILS (test code = 1008) 56.7 % LYMPHOCYTES (test code = 1010) 33.3 % MONOCYTES (test code = 1011) 6.9 % EOSINOPHILS (test code = 1012) 2.3 % BASOPHILS (test code = 1013) 0.6 % IMMATURE GRANULOCYTES (test 0.2 % code = 1036) NUCLEATED RBCS (test code = 0.0 /100WBC'S 1065) PLATELET COUNT (test code = 187 K/UL 1015) ABSOLUTE NEUTROPHILS (test code 3.71 K/UL = 1066) ABSOLUTE LYMPHOCYTES (test code 2.18 K/UL = 1067) ABSOLUTE MONOCYTES (test code = 0.45 K/UL 1068) ABSOLUTE EOSINOPHILS (test code 0.15 K/UL = 1040) ABSOLUTE BASOPHILS (test code = 0.04 K/UL 1069) ABS IMMATURE GRANULOCYTES (test 0.01 K/UL code = 1020) ABS NUCLEATED RBCS (test code = 0.00 K/UL 82674) CBC W/AUTO [id number] 00:00:00 Test Item Value Reference Range Interpretation Comments WBC (test code = 1001) 6.5 K/UL RBC (test code = 1002) 4.04 M/UL HEMOGLOBIN (test code = 1003) 12.4 G/DL HEMATOCRIT (test code = 1004) 36.4 % MCV (test code = 1005) 90.1 fL MCH (test code = 1006) 30.7 PG MCHC (test code = 1007) 34.1 G/DL RDW (test code = 1038) 12.9 % NEUTROPHILS (test code = 1008) 56.7 % LYMPHOCYTES (test code = 1010) 33.3 % MONOCYTES (test code = 1011) 6.9 % EOSINOPHILS (test code = 1012) 2.3 % BASOPHILS (test code = 1013) 0.6 % IMMATURE GRANULOCYTES (test 0.2 % code = 1036) NUCLEATED RBCS (test code = 0.0 /100WBC'S 1065) PLATELET COUNT (test code = 187 K/UL 1015) ABSOLUTE NEUTROPHILS (test code 3.71 K/UL = 1066) ABSOLUTE LYMPHOCYTES (test code 2.18 K/UL = 1067) ABSOLUTE MONOCYTES (test code = 0.45 K/UL 1068) ABSOLUTE EOSINOPHILS (test code 0.15 K/UL = 1040) ABSOLUTE BASOPHILS (test code = 0.04 K/UL 1069) ABS IMMATURE GRANULOCYTES (test 0.01 K/UL code = 1020) ABS NUCLEATED RBCS (test code = 0.00 K/UL 96080) CBC W/AUTO [id number] 00:00:00 Test Item Value Reference Range Interpretation Comments WBC (test code = 1001) 6.5 K/UL RBC (test code = 1002) 4.04 M/UL HEMOGLOBIN (test code = 1003) 12.4 G/DL HEMATOCRIT (test code = 1004) 36.4 % MCV (test code = 1005) 90.1 fL MCH (test code = 1006) 30.7 PG MCHC (test code = 1007) 34.1 G/DL RDW (test code = 1038) 12.9 % NEUTROPHILS (test code = 1008) 56.7 % LYMPHOCYTES (test code = 1010) 33.3 % MONOCYTES (test code = 1011) 6.9 % EOSINOPHILS (test code = 1012) 2.3 % BASOPHILS (test code = 1013) 0.6 % IMMATURE GRANULOCYTES (test 0.2 % code = 1036) NUCLEATED RBCS (test code = 0.0 /100WBC'S 1065) PLATELET COUNT (test code = 187 K/UL 1015) ABSOLUTE NEUTROPHILS (test code 3.71 K/UL = 1066) ABSOLUTE LYMPHOCYTES (test code 2.18 K/UL = 1067) ABSOLUTE MONOCYTES (test code = 0.45 K/UL 1068) ABSOLUTE EOSINOPHILS (test code 0.15 K/UL = 1040) ABSOLUTE BASOPHILS (test code = 0.04 K/UL 1069) ABS IMMATURE GRANULOCYTES (test 0.01 K/UL code = 1020) ABS NUCLEATED RBCS (test code = 0.00 K/UL 12366) HEMOGLOBIN [id number] 00:00:00 Test Item Value Reference Range Interpretation Comments HEMOGLOBIN A1c (test code = 85809) 7.3 % HEMOGLOBIN [id number] 00:00:00 Test Item Value Reference Range Interpretation Comments HEMOGLOBIN A1c (test code = 28544) 7.3 % LIPID [id number] 00:00:00 Test Item Value Reference Range Interpretation Comments CHOLESTEROL (test code = 2210) 158 MG/DL TRIGLYCERIDES (test code = 2232) 62 MG/DL HDL CHOLESTEROL (test code = 2220) 47 MG/DL CALC LDL CHOL (test code = 2237) 97 MG/DL RISK RATIO LDL/HDL (test code = 2.06 RATIO 2238) COMPREHENSIVE METABOLIC [id number] 00:00:00 Test Item Value Reference Range Interpretation Comments GLUCOSE (test code = 2217) 118 MG/DL BUN (test code = 2208) 22 MG/DL CREATININE (test code = 2214) 0.61 MG/DL eGFR AMER. (test code 113 ML/MIN/1.73 = 58711) eGFR NON- AMER. (test 98 ML/MIN/1.73 code = 74592) CALC BUN/CREAT (test code = 36 RATIO 2235) SODIUM (test code = 2231) 142 MEQ/L POTASSIUM (test code = 2228) 4.5 MEQ/L CHLORIDE (test code = 2215) 102 MEQ/L CARBON DIOXIDE (test code = 26 MEQ/L 2205) CALCIUM (test code = 2209) 10.1 MG/DL PROTEIN, TOTAL (test code = 7.8 G/DL 2228) ALBUMIN (test code = 2201) 4.7 G/DL CALC GLOBULIN (test code = 3.1 G/DL 2240) CALC A/G RATIO (test code = 1.5 RATIO 2234) BILIRUBIN, TOTAL (test code = 0.3 MG/DL 2206) ALKALINE PHOSPHATASE (test 90 U/L code = 2204) AST (test code = 2218) 19 U/L ALT (test code = 2219) 14 U/L HEMOGLOBIN [id number] 00:00:00 Test Item Value Reference Range Interpretation Comments HEMOGLOBIN A1c (test code = 23241) 7.3 % HEMOGLOBIN [id number] 00:00:00 Test Item Value Reference Range Interpretation Comments HEMOGLOBIN A1c (test code = 93379) 7.3 % HEMOGLOBIN [id number] 00:00:00 Test Item Value Reference Range Interpretation Comments HEMOGLOBIN A1c (test code = 71509) 7.3 % LIPID [id number] 00:00:00 Test Item Value Reference Range Interpretation Comments CHOLESTEROL (test code = 2210) 158 MG/DL TRIGLYCERIDES (test code = 2232) 62 MG/DL HDL CHOLESTEROL (test code = 2220) 47 MG/DL CALC LDL CHOL (test code = 2237) 97 MG/DL RISK RATIO LDL/HDL (test code = 2.06 RATIO 2238) LIPID [id number] 00:00:00 Test Item Value Reference Range Interpretation Comments CHOLESTEROL (test code = 2210) 158 MG/DL TRIGLYCERIDES (test code = 2232) 62 MG/DL HDL CHOLESTEROL (test code = 2220) 47 MG/DL CALC LDL CHOL (test code = 2237) 97 MG/DL RISK RATIO LDL/HDL (test code = 2.06 RATIO 2238) COMPREHENSIVE METABOLIC [id number] 00:00:00 Test Item Value Reference Range Interpretation Comments GLUCOSE (test code = 2217) 118 MG/DL BUN (test code = 2208) 22 MG/DL CREATININE (test code = 2214) 0.61 MG/DL eGFR AMER. (test code 113 ML/MIN/1.73 = 23831) eGFR NON- AMER. (test 98 ML/MIN/1.73 code = 38589) CALC BUN/CREAT (test code = 36 RATIO 2235) SODIUM (test code = 2231) 142 MEQ/L POTASSIUM (test code = 2228) 4.5 MEQ/L CHLORIDE (test code = 2215) 102 MEQ/L CARBON DIOXIDE (test code = 26 MEQ/L 6) CALCIUM (test code = 2209) 10.1 MG/DL PROTEIN, TOTAL (test code = 7.8 G/DL 2228) ALBUMIN (test code = 2201) 4.7 G/DL CALC GLOBULIN (test code = 3.1 G/DL 2240) CALC A/G RATIO (test code = 1.5 RATIO 2234) BILIRUBIN, TOTAL (test code = 0.3 MG/DL 2206) ALKALINE PHOSPHATASE (test 90 U/L code = 2204) AST (test code = 2218) 19 U/L ALT (test code = 2219) 14 U/L COMPREHENSIVE METABOLIC [id number] 00:00:00 Test Item Value Reference Range Interpretation Comments GLUCOSE (test code = 2217) 118 MG/DL BUN (test code = 2208) 22 MG/DL CREATININE (test code = 2214) 0.61 MG/DL eGFR AMER. (test code 113 ML/MIN/1.73 = 46201) eGFR NON- AMER. (test 98 ML/MIN/1.73 code = 31121) CALC BUN/CREAT (test code = 36 RATIO 2235) SODIUM (test code = 2231) 142 MEQ/L POTASSIUM (test code = 2228) 4.5 MEQ/L CHLORIDE (test code = 2215) 102 MEQ/L CARBON DIOXIDE (test code = 26 MEQ/L 2205) CALCIUM (test code = 2209) 10.1 MG/DL PROTEIN, TOTAL (test code = 7.8 G/DL 2228) ALBUMIN (test code = 2201) 4.7 G/DL CALC GLOBULIN (test code = 3.1 G/DL 2239) CALC A/G RATIO (test code = 1.5 RATIO 2233) BILIRUBIN, TOTAL (test code = 0.3 MG/DL 2206) ALKALINE PHOSPHATASE (test 90 U/L code = 2204) AST (test code = 2218) 19 U/L ALT (test code = 2219) 14 U/L HEMOGLOBIN [id number] 00:00:00 Test Item Value Reference Range Interpretation Comments HEMOGLOBIN A1c (test code = 15971) 7.3 % HEMOGLOBIN [id number] 00:00:00 Test Item Value Reference Range Interpretation Comments HEMOGLOBIN A1c (test code = 54586) 7.3 % HEMOGLOBIN [id number] 00:00:00 Test Item Value Reference Range Interpretation Comments HEMOGLOBIN A1c (test code = 87126) 7.3 % LIPID [id number] 00:00:00 Test Item Value Reference Range Interpretation Comments CHOLESTEROL (test code = 2210) 158 MG/DL TRIGLYCERIDES (test code = 2232) 62 MG/DL HDL CHOLESTEROL (test code = 2220) 47 MG/DL CALC LDL CHOL (test code = 2237) 97 MG/DL RISK RATIO LDL/HDL (test code = 2.06 RATIO 2238) LIPID [id number] 00:00:00 Test Item Value Reference Range Interpretation Comments CHOLESTEROL (test code = 2210) 158 MG/DL TRIGLYCERIDES (test code = 2232) 62 MG/DL HDL CHOLESTEROL (test code = 2220) 47 MG/DL CALC LDL CHOL (test code = 2237) 97 MG/DL RISK RATIO LDL/HDL (test code = 2.06 RATIO 2238) COMPREHENSIVE METABOLIC [id number] 00:00:00 Test Item Value Reference Range Interpretation Comments GLUCOSE (test code = 2217) 118 MG/DL BUN (test code = 2208) 22 MG/DL CREATININE (test code = 2214) 0.61 MG/DL eGFR AMER. (test code 113 ML/MIN/1.73 = 04711) eGFR NON- AMER. (test 98 ML/MIN/1.73 code = 66860) CALC BUN/CREAT (test code = 36 RATIO 2235) SODIUM (test code = 2231) 142 MEQ/L POTASSIUM (test code = 2228) 4.5 MEQ/L CHLORIDE (test code = 2215) 102 MEQ/L CARBON DIOXIDE (test code = 26 MEQ/L 2205) CALCIUM (test code = 2209) 10.1 MG/DL PROTEIN, TOTAL (test code = 7.8 G/DL 2228) ALBUMIN (test code = 2201) 4.7 G/DL CALC GLOBULIN (test code = 3.1 G/DL 2240) CALC A/G RATIO (test code = 1.5 RATIO 2234) BILIRUBIN, TOTAL (test code = 0.3 MG/DL 2206) ALKALINE PHOSPHATASE (test 90 U/L code = 2204) AST (test code = 2218) 19 U/L ALT (test code = 2219) 14 U/L COMPREHENSIVE METABOLIC [id number] 00:00:00 Test Item Value Reference Range Interpretation Comments GLUCOSE (test code = 2217) 118 MG/DL BUN (test code = 2208) 22 MG/DL CREATININE (test code = 2214) 0.61 MG/DL eGFR AMER. (test code 113 ML/MIN/1.73 = 79739) eGFR NON- AMER. (test 98 ML/MIN/1.73 code = 79156) CALC BUN/CREAT (test code = 36 RATIO 2235) SODIUM (test code = 2231) 142 MEQ/L POTASSIUM (test code = 2228) 4.5 MEQ/L CHLORIDE (test code = 2215) 102 MEQ/L CARBON DIOXIDE (test code = 26 MEQ/L 220) CALCIUM (test code = 2209) 10.1 MG/DL PROTEIN, TOTAL (test code = 7.8 G/DL 2228) ALBUMIN (test code = 2201) 4.7 G/DL CALC GLOBULIN (test code = 3.1 G/DL 2239) CALC A/G RATIO (test code = 1.5 RATIO 2234) BILIRUBIN, TOTAL (test code = 0.3 MG/DL 2206) ALKALINE PHOSPHATASE (test 90 U/L code = 2204) AST (test code = 2218) 19 U/L ALT (test code = 2219) 14 U/L HEMOGLOBIN [id number] 00:00:00 Test Item Value Reference Range Interpretation Comments HEMOGLOBIN A1c (test code = 19462) 7.3 % HEMOGLOBIN [id number] 00:00:00 Test Item Value Reference Range Interpretation Comments HEMOGLOBIN A1c (test code = 21167) 7.3 % HEMOGLOBIN [id number] 00:00:00 Test Item Value Reference Range Interpretation Comments HEMOGLOBIN A1c (test code = 89744) 7.3 % LIPID [id number] 00:00:00 Test Item Value Reference Range Interpretation Comments CHOLESTEROL (test code = 2210) 158 MG/DL TRIGLYCERIDES (test code = 2232) 62 MG/DL HDL CHOLESTEROL (test code = 2220) 47 MG/DL CALC LDL CHOL (test code = 2237) 97 MG/DL RISK RATIO LDL/HDL (test code = 2.06 RATIO 2238) LIPID [id number] 00:00:00 Test Item Value Reference Range Interpretation Comments CHOLESTEROL (test code = 2210) 158 MG/DL TRIGLYCERIDES (test code = 2232) 62 MG/DL HDL CHOLESTEROL (test code = 2220) 47 MG/DL CALC LDL CHOL (test code = 2237) 97 MG/DL RISK RATIO LDL/HDL (test code = 2.06 RATIO 2238) COMPREHENSIVE METABOLIC [id number] 00:00:00 Test Item Value Reference Range Interpretation Comments GLUCOSE (test code = 2217) 118 MG/DL BUN (test code = 2208) 22 MG/DL CREATININE (test code = 2214) 0.61 MG/DL eGFR AMER. (test code 113 ML/MIN/1.73 = 17916) eGFR NON- AMER. (test 98 ML/MIN/1.73 code = 91470) CALC BUN/CREAT (test code = 36 RATIO 2235) SODIUM (test code = 2231) 142 MEQ/L POTASSIUM (test code = 2228) 4.5 MEQ/L CHLORIDE (test code = 2215) 102 MEQ/L CARBON DIOXIDE (test code = 26 MEQ/L 2206) CALCIUM (test code = 2209) 10.1 MG/DL PROTEIN, TOTAL (test code = 7.8 G/DL 2229) ALBUMIN (test code = 2201) 4.7 G/DL CALC GLOBULIN (test code = 3.1 G/DL 2240) CALC A/G RATIO (test code = 1.5 RATIO 2234) BILIRUBIN, TOTAL (test code = 0.3 MG/DL 2206) ALKALINE PHOSPHATASE (test 90 U/L code = 2204) AST (test code = 2218) 19 U/L ALT (test code = 2219) 14 U/L COMPREHENSIVE METABOLIC [id number] 00:00:00 Test Item Value Reference Range Interpretation Comments GLUCOSE (test code = 2217) 118 MG/DL BUN (test code = 2208) 22 MG/DL CREATININE (test code = 2214) 0.61 MG/DL eGFR AMER. (test code 113 ML/MIN/1.73 = 29625) eGFR NON- AMER. (test 98 ML/MIN/1.73 code = 14998) CALC BUN/CREAT (test code = 36 RATIO 2235) SODIUM (test code = 2231) 142 MEQ/L POTASSIUM (test code = 2228) 4.5 MEQ/L CHLORIDE (test code = 2215) 102 MEQ/L CARBON DIOXIDE (test code = 26 MEQ/L 2206) CALCIUM (test code = 2209) 10.1 MG/DL PROTEIN, TOTAL (test code = 7.8 G/DL 9) ALBUMIN (test code = 2201) 4.7 G/DL CALC GLOBULIN (test code = 3.1 G/DL 2240) CALC A/G RATIO (test code = 1.5 RATIO 2234) BILIRUBIN, TOTAL (test code = 0.3 MG/DL 2206) ALKALINE PHOSPHATASE (test 90 U/L code = 2204) AST (test code = 2218) 19 U/L ALT (test code = 2219) 14 U/L SARS-CoV-2 (COVID-19) by RT-PCR (HIGH RISK)2021-08-06 00:00:00 Test Item Value Reference Range Interpretation Comments SARS-CoV-2 INTERPRETATION (test NEGATIVE code = 04108) SOURCE (test code = 45455) NOT SPECIFIED SARS-CoV-2 (COVID-19) by RT-PCR (HIGH RISK)2021-08-06 00:00:00 Test Item Value Reference Range Interpretation Comments SARS-CoV-2 INTERPRETATION (test NEGATIVE code = 42974) SOURCE (test code = 42123) NOT SPECIFIED SARS-CoV-2 (COVID-19) by RT-PCR (HIGH RISK)2021-08-06 00:00:00 Test Item Value Reference Range Interpretation Comments SARS-CoV-2 INTERPRETATION (test NEGATIVE code = 99825) SOURCE (test code = 18544) NOT SPECIFIED SARS-CoV-2 (COVID-19) by RT-PCR (HIGH RISK)2021-08-06 00:00:00 Test Item Value Reference Range Interpretation Comments SARS-CoV-2 INTERPRETATION (test NEGATIVE code = 00387) SOURCE (test code = 64619) NOT SPECIFIED SARS-CoV-2 (COVID-19) by RT-PCR (HIGH RISK)2021-08-06 00:00:00 Test Item Value Reference Range Interpretation Comments SARS-CoV-2 INTERPRETATION (test NEGATIVE code = 24941) SOURCE (test code = 57777) NOT SPECIFIED SARS-CoV-2 (COVID-19) by RT-PCR (HIGH RISK)2021-08-06 00:00:00 Test Item Value Reference Range Interpretation Comments SARS-CoV-2 INTERPRETATION (test NEGATIVE code = 13368) SOURCE (test code = 53952) NOT SPECIFIED SARS-CoV-2 (COVID-19) by RT-PCR (HIGH RISK)2021-08-06 00:00:00 Test Item Value Reference Range Interpretation Comments SARS-CoV-2 INTERPRETATION (test NEGATIVE code = 85263) SOURCE (test code = 90216) NOT SPECIFIED CULTURE, [id number] 00:00:00 Test Item Value Reference Range Interpretation Comments CULTURE, THROAT (test SPECIMEN NUMBER: code = 11781) [id number] CULTURE, [id number] 00:00:00 Test Item Value Reference Range Interpretation Comments CULTURE, THROAT (test SPECIMEN NUMBER: code = 37147) [id number] CULTURE, [id number] 00:00:00 Test Item Value Reference Range Interpretation Comments CULTURE, THROAT (test SPECIMEN NUMBER: code = 43236) [id number] CULTURE, [id number] 00:00:00 Test Item Value Reference Range Interpretation Comments CULTURE, THROAT (test SPECIMEN NUMBER: code = 44571) [id number] CULTURE, [id number] 00:00:00 Test Item Value Reference Range Interpretation Comments CULTURE, THROAT (test SPECIMEN NUMBER: code = 41583) [id number] CULTURE, [id number] 00:00:00 Test Item Value Reference Range Interpretation Comments CULTURE, THROAT (test SPECIMEN NUMBER: code = 82685) [id number] CULTURE, [id number] 00:00:00 Test Item Value Reference Range Interpretation Comments CULTURE, THROAT (test SPECIMEN NUMBER: code = 58708) [id number] CULTURE, [id number] 00:00:00 Test Item Value Reference Range Interpretation Comments CULTURE, URINE (test SPECIMEN NUMBER: code = 02247) [id number] CULTURE, [id number] 00:00:00 Test Item Value Reference Range Interpretation Comments CULTURE, URINE (test SPECIMEN NUMBER: code = 41450) [id number] CULTURE, [id number] 00:00:00 Test Item Value Reference Range Interpretation Comments CULTURE, URINE (test SPECIMEN NUMBER: code = 59532) [id number] CULTURE, [id number] 00:00:00 Test Item Value Reference Range Interpretation Comments CULTURE, URINE (test SPECIMEN NUMBER: code = 08437) [id number] CULTURE, [id number] 00:00:00 Test Item Value Reference Range Interpretation Comments CULTURE, URINE (test SPECIMEN NUMBER: code = 83762) [id number] CULTURE, [id number] 00:00:00 Test Item Value Reference Range Interpretation Comments CULTURE, URINE (test SPECIMEN NUMBER: code = 39179) [id number] CULTURE, [id number] 00:00:00 Test Item Value Reference Range Interpretation Comments CULTURE, URINE (test SPECIMEN NUMBER: code = 46162) [id number] HEMOGLOBIN [id number] 00:00:00 Test Item Value Reference Range Interpretation Comments HEMOGLOBIN A1c (test code = 16176) 6.6 % HEMOGLOBIN [id number] 00:00:00 Test Item Value Reference Range Interpretation Comments HEMOGLOBIN A1c (test code = 12347) 6.6 % LIPID [id number] 00:00:00 Test Item Value Reference Range Interpretation Comments CHOLESTEROL (test code = 2210) 162 MG/DL TRIGLYCERIDES (test code = 2232) 78 MG/DL HDL CHOLESTEROL (test code = 2220) 46 MG/DL CALC LDL CHOL (test code = 2237) 99 MG/DL RISK RATIO LDL/HDL (test code = 2.15 RATIO 2238) COMPREHENSIVE METABOLIC [id number] 00:00:00 Test Item Value Reference Range Interpretation Comments GLUCOSE (test code = 2217) 105 MG/DL BUN (test code = 2208) 22 MG/DL CREATININE (test code = 2214) 0.73 MG/DL eGFR AMER. (test code 103 ML/MIN/1.73 = 50156) eGFR NON- AMER. (test 89 ML/MIN/1.73 code = 23564) CALC BUN/CREAT (test code = 30 RATIO 2235) SODIUM (test code = 2231) 142 MEQ/L POTASSIUM (test code = 2228) 4.4 MEQ/L CHLORIDE (test code = 2215) 102 MEQ/L CARBON DIOXIDE (test code = 27 MEQ/L 2205) CALCIUM (test code = 2209) 9.6 MG/DL PROTEIN, TOTAL (test code = 7.5 G/DL 2228) ALBUMIN (test code = 2201) 4.5 G/DL CALC GLOBULIN (test code = 3.0 G/DL 2240) CALC A/G RATIO (test code = 1.5 RATIO 4) BILIRUBIN, TOTAL (test code = 0.4 MG/DL 2206) ALKALINE PHOSPHATASE (test 80 U/L code = 2204) AST (test code = 2218) 20 U/L ALT (test code = 2219) 18 U/L HEMOGLOBIN [id number] 00:00:00 Test Item Value Reference Range Interpretation Comments HEMOGLOBIN A1c (test code = 34565) 6.6 % HEMOGLOBIN [id number] 00:00:00 Test Item Value Reference Range Interpretation Comments HEMOGLOBIN A1c (test code = 86042) 6.6 % HEMOGLOBIN [id number] 00:00:00 Test Item Value Reference Range Interpretation Comments HEMOGLOBIN A1c (test code = 31049) 6.6 % LIPID [id number] 00:00:00 Test Item Value Reference Range Interpretation Comments CHOLESTEROL (test code = 2210) 162 MG/DL TRIGLYCERIDES (test code = 2232) 78 MG/DL HDL CHOLESTEROL (test code = 2220) 46 MG/DL CALC LDL CHOL (test code = 2237) 99 MG/DL RISK RATIO LDL/HDL (test code = 2.15 RATIO 2238) LIPID [id number] 00:00:00 Test Item Value Reference Range Interpretation Comments CHOLESTEROL (test code = 2210) 162 MG/DL TRIGLYCERIDES (test code = 2232) 78 MG/DL HDL CHOLESTEROL (test code = 2220) 46 MG/DL CALC LDL CHOL (test code = 2237) 99 MG/DL RISK RATIO LDL/HDL (test code = 2.15 RATIO 2238) COMPREHENSIVE METABOLIC [id number] 00:00:00 Test Item Value Reference Range Interpretation Comments GLUCOSE (test code = 2217) 105 MG/DL BUN (test code = 2208) 22 MG/DL CREATININE (test code = 2214) 0.73 MG/DL eGFR AMER. (test code 103 ML/MIN/1.73 = 93745) eGFR NON- AMER. (test 89 ML/MIN/1.73 code = 32216) CALC BUN/CREAT (test code = 30 RATIO 2235) SODIUM (test code = 2231) 142 MEQ/L POTASSIUM (test code = 2228) 4.4 MEQ/L CHLORIDE (test code = 2215) 102 MEQ/L CARBON DIOXIDE (test code = 27 MEQ/L 220) CALCIUM (test code = 2209) 9.6 MG/DL PROTEIN, TOTAL (test code = 7.5 G/DL 2228) ALBUMIN (test code = 2201) 4.5 G/DL CALC GLOBULIN (test code = 3.0 G/DL 2240) CALC A/G RATIO (test code = 1.5 RATIO 2234) BILIRUBIN, TOTAL (test code = 0.4 MG/DL 2206) ALKALINE PHOSPHATASE (test 80 U/L code = 2204) AST (test code = 2218) 20 U/L ALT (test code = 2219) 18 U/L COMPREHENSIVE METABOLIC [id number] 00:00:00 Test Item Value Reference Range Interpretation Comments GLUCOSE (test code = 2217) 105 MG/DL BUN (test code = 2208) 22 MG/DL CREATININE (test code = 2214) 0.73 MG/DL eGFR AMER. (test code 103 ML/MIN/1.73 = 37325) eGFR NON- AMER. (test 89 ML/MIN/1.73 code = 03898) CALC BUN/CREAT (test code = 30 RATIO 2235) SODIUM (test code = 2231) 142 MEQ/L POTASSIUM (test code = 2228) 4.4 MEQ/L CHLORIDE (test code = 2215) 102 MEQ/L CARBON DIOXIDE (test code = 27 MEQ/L 2205) CALCIUM (test code = 2209) 9.6 MG/DL PROTEIN, TOTAL (test code = 7.5 G/DL 2228) ALBUMIN (test code = 2201) 4.5 G/DL CALC GLOBULIN (test code = 3.0 G/DL 2239) CALC A/G RATIO (test code = 1.5 RATIO 2233) BILIRUBIN, TOTAL (test code = 0.4 MG/DL 2206) ALKALINE PHOSPHATASE (test 80 U/L code = 2204) AST (test code = 2218) 20 U/L ALT (test code = 2219) 18 U/L HEMOGLOBIN [id number] 00:00:00 Test Item Value Reference Range Interpretation Comments HEMOGLOBIN A1c (test code = 69035) 6.6 % HEMOGLOBIN [id number] 00:00:00 Test Item Value Reference Range Interpretation Comments HEMOGLOBIN A1c (test code = 74674) 6.6 % HEMOGLOBIN [id number] 00:00:00 Test Item Value Reference Range Interpretation Comments HEMOGLOBIN A1c (test code = 07099) 6.6 % LIPID [id number] 00:00:00 Test Item Value Reference Range Interpretation Comments CHOLESTEROL (test code = 2210) 162 MG/DL TRIGLYCERIDES (test code = 2232) 78 MG/DL HDL CHOLESTEROL (test code = 2220) 46 MG/DL CALC LDL CHOL (test code = 2237) 99 MG/DL RISK RATIO LDL/HDL (test code = 2.15 RATIO 2238) LIPID [id number] 00:00:00 Test Item Value Reference Range Interpretation Comments CHOLESTEROL (test code = 2210) 162 MG/DL TRIGLYCERIDES (test code = 2232) 78 MG/DL HDL CHOLESTEROL (test code = 2220) 46 MG/DL CALC LDL CHOL (test code = 2237) 99 MG/DL RISK RATIO LDL/HDL (test code = 2.15 RATIO 2238) COMPREHENSIVE METABOLIC [id number] 00:00:00 Test Item Value Reference Range Interpretation Comments GLUCOSE (test code = 2217) 105 MG/DL BUN (test code = 2208) 22 MG/DL CREATININE (test code = 2214) 0.73 MG/DL eGFR AMER. (test code 103 ML/MIN/1.73 = 85500) eGFR NON- AMER. (test 89 ML/MIN/1.73 code = 85185) CALC BUN/CREAT (test code = 30 RATIO 2235) SODIUM (test code = 2231) 142 MEQ/L POTASSIUM (test code = 2228) 4.4 MEQ/L CHLORIDE (test code = 2215) 102 MEQ/L CARBON DIOXIDE (test code = 27 MEQ/L 220) CALCIUM (test code = 2209) 9.6 MG/DL PROTEIN, TOTAL (test code = 7.5 G/DL 222) ALBUMIN (test code = 2201) 4.5 G/DL CALC GLOBULIN (test code = 3.0 G/DL 2240) CALC A/G RATIO (test code = 1.5 RATIO 2234) BILIRUBIN, TOTAL (test code = 0.4 MG/DL 220) ALKALINE PHOSPHATASE (test 80 U/L code = 2204) AST (test code = 2218) 20 U/L ALT (test code = 2219) 18 U/L COMPREHENSIVE METABOLIC [id number] 00:00:00 Test Item Value Reference Range Interpretation Comments GLUCOSE (test code = 2217) 105 MG/DL BUN (test code = 2208) 22 MG/DL CREATININE (test code = 2214) 0.73 MG/DL eGFR AMER. (test code 103 ML/MIN/1.73 = 20848) eGFR NON- AMER. (test 89 ML/MIN/1.73 code = 29824) CALC BUN/CREAT (test code = 30 RATIO 2235) SODIUM (test code = 2231) 142 MEQ/L POTASSIUM (test code = 2228) 4.4 MEQ/L CHLORIDE (test code = 2215) 102 MEQ/L CARBON DIOXIDE (test code = 27 MEQ/L 2206) CALCIUM (test code = 2209) 9.6 MG/DL PROTEIN, TOTAL (test code = 7.5 G/DL 2228) ALBUMIN (test code = 2201) 4.5 G/DL CALC GLOBULIN (test code = 3.0 G/DL 0) CALC A/G RATIO (test code = 1.5 RATIO 2234) BILIRUBIN, TOTAL (test code = 0.4 MG/DL 2206) ALKALINE PHOSPHATASE (test 80 U/L code = 2204) AST (test code = 2218) 20 U/L ALT (test code = 2219) 18 U/L HEMOGLOBIN [id number] 00:00:00 Test Item Value Reference Range Interpretation Comments HEMOGLOBIN A1c (test code = 52162) 6.6 % HEMOGLOBIN [id number] 00:00:00 Test Item Value Reference Range Interpretation Comments HEMOGLOBIN A1c (test code = 61786) 6.6 % HEMOGLOBIN [id number] 00:00:00 Test Item Value Reference Range Interpretation Comments HEMOGLOBIN A1c (test code = 61780) 6.6 % LIPID [id number] 00:00:00 Test Item Value Reference Range Interpretation Comments CHOLESTEROL (test code = 2210) 162 MG/DL TRIGLYCERIDES (test code = 2232) 78 MG/DL HDL CHOLESTEROL (test code = 2220) 46 MG/DL CALC LDL CHOL (test code = 2237) 99 MG/DL RISK RATIO LDL/HDL (test code = 2.15 RATIO 2238) LIPID [id number] 00:00:00 Test Item Value Reference Range Interpretation Comments CHOLESTEROL (test code = 2210) 162 MG/DL TRIGLYCERIDES (test code = 2232) 78 MG/DL HDL CHOLESTEROL (test code = 2220) 46 MG/DL CALC LDL CHOL (test code = 2237) 99 MG/DL RISK RATIO LDL/HDL (test code = 2.15 RATIO 2238) COMPREHENSIVE METABOLIC [id number] 00:00:00 Test Item Value Reference Range Interpretation Comments GLUCOSE (test code = 2217) 105 MG/DL BUN (test code = 2208) 22 MG/DL CREATININE (test code = 2214) 0.73 MG/DL eGFR AMER. (test code 103 ML/MIN/1.73 = 29521) eGFR NON- AMER. (test 89 ML/MIN/1.73 code = 34994) CALC BUN/CREAT (test code = 30 RATIO 2235) SODIUM (test code = 2231) 142 MEQ/L POTASSIUM (test code = 2228) 4.4 MEQ/L CHLORIDE (test code = 2215) 102 MEQ/L CARBON DIOXIDE (test code = 27 MEQ/L 220) CALCIUM (test code = 2209) 9.6 MG/DL PROTEIN, TOTAL (test code = 7.5 G/DL 222) ALBUMIN (test code = 2201) 4.5 G/DL CALC GLOBULIN (test code = 3.0 G/DL 2240) CALC A/G RATIO (test code = 1.5 RATIO 2234) BILIRUBIN, TOTAL (test code = 0.4 MG/DL 2206) ALKALINE PHOSPHATASE (test 80 U/L code = 2204) AST (test code = 2218) 20 U/L ALT (test code = 2219) 18 U/L COMPREHENSIVE METABOLIC [id number] 00:00:00 Test Item Value Reference Range Interpretation Comments GLUCOSE (test code = 2217) 105 MG/DL BUN (test code = 2208) 22 MG/DL CREATININE (test code = 2214) 0.73 MG/DL eGFR AMER. (test code 103 ML/MIN/1.73 = 84455) eGFR NON- AMER. (test 89 ML/MIN/1.73 code = 67348) CALC BUN/CREAT (test code = 30 RATIO 2235) SODIUM (test code = 2231) 142 MEQ/L POTASSIUM (test code = 2228) 4.4 MEQ/L CHLORIDE (test code = 2215) 102 MEQ/L CARBON DIOXIDE (test code = 27 MEQ/L 2205) CALCIUM (test code = 2209) 9.6 MG/DL PROTEIN, TOTAL (test code = 7.5 G/DL 2228) ALBUMIN (test code = 2201) 4.5 G/DL CALC GLOBULIN (test code = 3.0 G/DL 2240) CALC A/G RATIO (test code = 1.5 RATIO 2234) BILIRUBIN, TOTAL (test code = 0.4 MG/DL 2207) ALKALINE PHOSPHATASE (test 80 U/L code = 2204) AST (test code = 2218) 20 U/L ALT (test code = 2219) 18 U/L LIPID [id number] 00:00:00 Test Item Value Reference Range Interpretation Comments CHOLESTEROL (test code = 2210) 213 MG/DL TRIGLYCERIDES (test code = 2232) 108 MG/DL HDL CHOLESTEROL (test code = 2220) 45 MG/DL CALC LDL CHOL (test code = 2237) 146 MG/DL RISK RATIO LDL/HDL (test code = 3.24 RATIO 2238) COMPREHENSIVE METABOLIC [id number] 00:00:00 Test Item Value Reference Range Interpretation Comments GLUCOSE (test code = 2217) 117 MG/DL BUN (test code = 2208) 18 MG/DL CREATININE (test code = 2214) 0.64 MG/DL eGFR AMER. (test code 112 ML/MIN/1.73 = 62703) eGFR NON- AMER. (test 97 ML/MIN/1.73 code = 86989) CALC BUN/CREAT (test code = 28 RATIO 2235) SODIUM (test code = 2231) 141 MEQ/L POTASSIUM (test code = 2228) 4.3 MEQ/L CHLORIDE (test code = 2215) 103 MEQ/L CARBON DIOXIDE (test code = 28 MEQ/L 2205) CALCIUM (test code = 2209) 10.0 MG/DL PROTEIN, TOTAL (test code = 7.6 G/DL 2228) ALBUMIN (test code = 2201) 4.3 G/DL CALC GLOBULIN (test code = 3.3 G/DL 0) CALC A/G RATIO (test code = 1.3 RATIO 2233) BILIRUBIN, TOTAL (test code = 0.3 MG/DL 2206) ALKALINE PHOSPHATASE (test 87 U/L code = 2204) AST (test code = 2218) 16 U/L ALT (test code = 2219) 18 U/L VITAMIN [id number] 00:00:00 Test Item Value Reference Range Interpretation Comments VITAMIN B-12 (test code = 2840) 837 PG/ML VITAMIN [id number] 00:00:00 Test Item Value Reference Range Interpretation Comments VITAMIN B-12 (test code = 2840) 837 PG/ML HEMOGLOBIN [id number] 00:00:00 Test Item Value Reference Range Interpretation Comments HEMOGLOBIN A1c (test code = 46908) 6.9 % HEMOGLOBIN [id number] 00:00:00 Test Item Value Reference Range Interpretation Comments HEMOGLOBIN A1c (test code = 90372) 6.9 % HEMOGLOBIN [id number] 00:00:00 Test Item Value Reference Range Interpretation Comments HEMOGLOBIN A1c (test code = 26686) 6.9 % LIPID [id number] 00:00:00 Test Item Value Reference Range Interpretation Comments CHOLESTEROL (test code = 2210) 213 MG/DL TRIGLYCERIDES (test code = 2232) 108 MG/DL HDL CHOLESTEROL (test code = 2220) 45 MG/DL CALC LDL CHOL (test code = 2237) 146 MG/DL RISK RATIO LDL/HDL (test code = 3.24 RATIO 2238) LIPID [id number] 00:00:00 Test Item Value Reference Range Interpretation Comments CHOLESTEROL (test code = 2210) 213 MG/DL TRIGLYCERIDES (test code = 2232) 108 MG/DL HDL CHOLESTEROL (test code = 2220) 45 MG/DL CALC LDL CHOL (test code = 2237) 146 MG/DL RISK RATIO LDL/HDL (test code = 3.24 RATIO 2238) COMPREHENSIVE METABOLIC [id number] 00:00:00 Test Item Value Reference Range Interpretation Comments GLUCOSE (test code = 2217) 117 MG/DL BUN (test code = 2208) 18 MG/DL CREATININE (test code = 2214) 0.64 MG/DL eGFR AMER. (test code 112 ML/MIN/1.73 = 19911) eGFR NON- AMER. (test 97 ML/MIN/1.73 code = 41737) CALC BUN/CREAT (test code = 28 RATIO 2235) SODIUM (test code = 2231) 141 MEQ/L POTASSIUM (test code = 2228) 4.3 MEQ/L CHLORIDE (test code = 2215) 103 MEQ/L CARBON DIOXIDE (test code = 28 MEQ/L 2206) CALCIUM (test code = 2209) 10.0 MG/DL PROTEIN, TOTAL (test code = 7.6 G/DL 2228) ALBUMIN (test code = 2201) 4.3 G/DL CALC GLOBULIN (test code = 3.3 G/DL 2240) CALC A/G RATIO (test code = 1.3 RATIO 2234) BILIRUBIN, TOTAL (test code = 0.3 MG/DL 2206) ALKALINE PHOSPHATASE (test 87 U/L code = 2204) AST (test code = 2218) 16 U/L ALT (test code = 2219) 18 U/L COMPREHENSIVE METABOLIC [id number] 00:00:00 Test Item Value Reference Range Interpretation Comments GLUCOSE (test code = 2217) 117 MG/DL BUN (test code = 2208) 18 MG/DL CREATININE (test code = 2214) 0.64 MG/DL eGFR AMER. (test code 112 ML/MIN/1.73 = 22588) eGFR NON- AMER. (test 97 ML/MIN/1.73 code = 95977) CALC BUN/CREAT (test code = 28 RATIO 2235) SODIUM (test code = 2231) 141 MEQ/L POTASSIUM (test code = 2228) 4.3 MEQ/L CHLORIDE (test code = 2215) 103 MEQ/L CARBON DIOXIDE (test code = 28 MEQ/L 2205) CALCIUM (test code = 2209) 10.0 MG/DL PROTEIN, TOTAL (test code = 7.6 G/DL 2228) ALBUMIN (test code = 2201) 4.3 G/DL CALC GLOBULIN (test code = 3.3 G/DL 0) CALC A/G RATIO (test code = 1.3 RATIO 2233) BILIRUBIN, TOTAL (test code = 0.3 MG/DL 2206) ALKALINE PHOSPHATASE (test 87 U/L code = 2204) AST (test code = 2218) 16 U/L ALT (test code = 2219) 18 U/L VITAMIN [id number] 00:00:00 Test Item Value Reference Range Interpretation Comments VITAMIN B-12 (test code = 2840) 837 PG/ML VITAMIN [id number] 00:00:00 Test Item Value Reference Range Interpretation Comments VITAMIN B-12 (test code = 2840) 837 PG/ML VITAMIN [id number] 00:00:00 Test Item Value Reference Range Interpretation Comments VITAMIN B-12 (test code = 2840) 837 PG/ML HEMOGLOBIN [id number] 00:00:00 Test Item Value Reference Range Interpretation Comments HEMOGLOBIN A1c (test code = 85945) 6.9 % HEMOGLOBIN [id number] 00:00:00 Test Item Value Reference Range Interpretation Comments HEMOGLOBIN A1c (test code = 63590) 6.9 % HEMOGLOBIN [id number] 00:00:00 Test Item Value Reference Range Interpretation Comments HEMOGLOBIN A1c (test code = 92801) 6.9 % LIPID [id number] 00:00:00 Test Item Value Reference Range Interpretation Comments CHOLESTEROL (test code = 2210) 213 MG/DL TRIGLYCERIDES (test code = 2232) 108 MG/DL HDL CHOLESTEROL (test code = 2220) 45 MG/DL CALC LDL CHOL (test code = 2237) 146 MG/DL RISK RATIO LDL/HDL (test code = 3.24 RATIO 2238) LIPID [id number] 00:00:00 Test Item Value Reference Range Interpretation Comments CHOLESTEROL (test code = 2210) 213 MG/DL TRIGLYCERIDES (test code = 2232) 108 MG/DL HDL CHOLESTEROL (test code = 2220) 45 MG/DL CALC LDL CHOL (test code = 2237) 146 MG/DL RISK RATIO LDL/HDL (test code = 3.24 RATIO 2238) COMPREHENSIVE METABOLIC [id number] 00:00:00 Test Item Value Reference Range Interpretation Comments GLUCOSE (test code = 2217) 117 MG/DL BUN (test code = 2208) 18 MG/DL CREATININE (test code = 2214) 0.64 MG/DL eGFR AMER. (test code 112 ML/MIN/1.73 = 82412) eGFR NON- AMER. (test 97 ML/MIN/1.73 code = 18652) CALC BUN/CREAT (test code = 28 RATIO 2235) SODIUM (test code = 2231) 141 MEQ/L POTASSIUM (test code = 2228) 4.3 MEQ/L CHLORIDE (test code = 2215) 103 MEQ/L CARBON DIOXIDE (test code = 28 MEQ/L 220) CALCIUM (test code = 2209) 10.0 MG/DL PROTEIN, TOTAL (test code = 7.6 G/DL 2228) ALBUMIN (test code = 2201) 4.3 G/DL CALC GLOBULIN (test code = 3.3 G/DL 2240) CALC A/G RATIO (test code = 1.3 RATIO 2234) BILIRUBIN, TOTAL (test code = 0.3 MG/DL 2206) ALKALINE PHOSPHATASE (test 87 U/L code = 2204) AST (test code = 2218) 16 U/L ALT (test code = 2219) 18 U/L COMPREHENSIVE METABOLIC [id number] 00:00:00 Test Item Value Reference Range Interpretation Comments GLUCOSE (test code = 2217) 117 MG/DL BUN (test code = 2208) 18 MG/DL CREATININE (test code = 2214) 0.64 MG/DL eGFR AMER. (test code 112 ML/MIN/1.73 = 91848) eGFR NON- AMER. (test 97 ML/MIN/1.73 code = 80240) CALC BUN/CREAT (test code = 28 RATIO 2235) SODIUM (test code = 2231) 141 MEQ/L POTASSIUM (test code = 2228) 4.3 MEQ/L CHLORIDE (test code = 2215) 103 MEQ/L CARBON DIOXIDE (test code = 28 MEQ/L 2205) CALCIUM (test code = 2209) 10.0 MG/DL PROTEIN, TOTAL (test code = 7.6 G/DL 2228) ALBUMIN (test code = 220) 4.3 G/DL CALC GLOBULIN (test code = 3.3 G/DL 2239) CALC A/G RATIO (test code = 1.3 RATIO 2233) BILIRUBIN, TOTAL (test code = 0.3 MG/DL 2206) ALKALINE PHOSPHATASE (test 87 U/L code = 2204) AST (test code = 2218) 16 U/L ALT (test code = 2219) 18 U/L VITAMIN [id number] 00:00:00 Test Item Value Reference Range Interpretation Comments VITAMIN B-12 (test code = 2840) 837 PG/ML VITAMIN [id number] 00:00:00 Test Item Value Reference Range Interpretation Comments VITAMIN B-12 (test code = 2840) 837 PG/ML VITAMIN [id number] 00:00:00 Test Item Value Reference Range Interpretation Comments VITAMIN B-12 (test code = 2840) 837 PG/ML HEMOGLOBIN [id number] 00:00:00 Test Item Value Reference Range Interpretation Comments HEMOGLOBIN A1c (test code = 79044) 6.9 % HEMOGLOBIN [id number] 00:00:00 Test Item Value Reference Range Interpretation Comments HEMOGLOBIN A1c (test code = 20333) 6.9 % HEMOGLOBIN [id number] 00:00:00 Test Item Value Reference Range Interpretation Comments HEMOGLOBIN A1c (test code = 39904) 6.9 % LIPID [id number] 00:00:00 Test Item Value Reference Range Interpretation Comments CHOLESTEROL (test code = 2210) 213 MG/DL TRIGLYCERIDES (test code = 2232) 108 MG/DL HDL CHOLESTEROL (test code = 2220) 45 MG/DL CALC LDL CHOL (test code = 2237) 146 MG/DL RISK RATIO LDL/HDL (test code = 3.24 RATIO 2238) LIPID [id number] 00:00:00 Test Item Value Reference Range Interpretation Comments CHOLESTEROL (test code = 2210) 213 MG/DL TRIGLYCERIDES (test code = 2232) 108 MG/DL HDL CHOLESTEROL (test code = 2220) 45 MG/DL CALC LDL CHOL (test code = 2237) 146 MG/DL RISK RATIO LDL/HDL (test code = 3.24 RATIO 2238) COMPREHENSIVE METABOLIC [id number] 00:00:00 Test Item Value Reference Range Interpretation Comments GLUCOSE (test code = 2217) 117 MG/DL BUN (test code = 2208) 18 MG/DL CREATININE (test code = 2214) 0.64 MG/DL eGFR AMER. (test code 112 ML/MIN/1.73 = 02715) eGFR NON- AMER. (test 97 ML/MIN/1.73 code = 20854) CALC BUN/CREAT (test code = 28 RATIO 2235) SODIUM (test code = 2231) 141 MEQ/L POTASSIUM (test code = 2228) 4.3 MEQ/L CHLORIDE (test code = 2215) 103 MEQ/L CARBON DIOXIDE (test code = 28 MEQ/L 220) CALCIUM (test code = 2209) 10.0 MG/DL PROTEIN, TOTAL (test code = 7.6 G/DL 2228) ALBUMIN (test code = 2201) 4.3 G/DL CALC GLOBULIN (test code = 3.3 G/DL 2240) CALC A/G RATIO (test code = 1.3 RATIO 2234) BILIRUBIN, TOTAL (test code = 0.3 MG/DL 220) ALKALINE PHOSPHATASE (test 87 U/L code = 2204) AST (test code = 2218) 16 U/L ALT (test code = 2219) 18 U/L COMPREHENSIVE METABOLIC [id number] 00:00:00 Test Item Value Reference Range Interpretation Comments GLUCOSE (test code = 2217) 117 MG/DL BUN (test code = 2208) 18 MG/DL CREATININE (test code = 2214) 0.64 MG/DL eGFR AMER. (test code 112 ML/MIN/1.73 = 99939) eGFR NON- AMER. (test 97 ML/MIN/1.73 code = 90165) CALC BUN/CREAT (test code = 28 RATIO 2235) SODIUM (test code = 2231) 141 MEQ/L POTASSIUM (test code = 2228) 4.3 MEQ/L CHLORIDE (test code = 2215) 103 MEQ/L CARBON DIOXIDE (test code = 28 MEQ/L 2205) CALCIUM (test code = 2209) 10.0 MG/DL PROTEIN, TOTAL (test code = 7.6 G/DL 2228) ALBUMIN (test code = 2201) 4.3 G/DL CALC GLOBULIN (test code = 3.3 G/DL 224) CALC A/G RATIO (test code = 1.3 RATIO 2233) BILIRUBIN, TOTAL (test code = 0.3 MG/DL 2206) ALKALINE PHOSPHATASE (test 87 U/L code = 2204) AST (test code = 2218) 16 U/L ALT (test code = 2219) 18 U/L VITAMIN [id number] 00:00:00 Test Item Value Reference Range Interpretation Comments VITAMIN B-12 (test code = 2840) 837 PG/ML VITAMIN [id number] 00:00:00 Test Item Value Reference Range Interpretation Comments VITAMIN B-12 (test code = 2840) 837 PG/ML VITAMIN [id number] 00:00:00 Test Item Value Reference Range Interpretation Comments VITAMIN B-12 (test code = 2840) 837 PG/ML HEMOGLOBIN [id number] 00:00:00 Test Item Value Reference Range Interpretation Comments HEMOGLOBIN A1c (test code = 47360) 6.9 % HEMOGLOBIN [id number] 00:00:00 Test Item Value Reference Range Interpretation Comments HEMOGLOBIN A1c (test code = 62140) 6.9 % H. PYLORI (BREATH)2020-09-24 00:00:00 Test Item Value Reference Range Interpretation Comments H. PYLORI (BREATH) (test code = NEGATIVE 49757) H. PYLORI (BREATH)2020-09-24 00:00:00 Test Item Value Reference Range Interpretation Comments H. PYLORI (BREATH) (test code = NEGATIVE 23930) H. PYLORI (BREATH)2020-09-24 00:00:00 Test Item Value Reference Range Interpretation Comments H. PYLORI (BREATH) (test code = NEGATIVE 73932) H. PYLORI (BREATH)2020-09-24 00:00:00 Test Item Value Reference Range Interpretation Comments H. PYLORI (BREATH) (test code = NEGATIVE 01991) H. PYLORI (BREATH)2020-09-24 00:00:00 Test Item Value Reference Range Interpretation Comments H. PYLORI (BREATH) (test code = NEGATIVE 01072) H. PYLORI (BREATH)2020-09-24 00:00:00 Test Item Value Reference Range Interpretation Comments H. PYLORI (BREATH) (test code = NEGATIVE 33241) H. PYLORI (BREATH)2020-09-24 00:00:00 Test Item Value Reference Range Interpretation Comments H. PYLORI (BREATH) (test code = NEGATIVE 91795) HEMOGLOBIN [id number] 00:00:00 Test Item Value Reference Range Interpretation Comments HEMOGLOBIN A1c (test code = 79819) 6.8 % HEMOGLOBIN [id number] 00:00:00 Test Item Value Reference Range Interpretation Comments HEMOGLOBIN A1c (test code = 34793) 6.8 % LIPID [id number] 00:00:00 Test Item Value Reference Range Interpretation Comments CHOLESTEROL (test code = 2210) 188 MG/DL TRIGLYCERIDES (test code = 2232) 98 MG/DL HDL CHOLESTEROL (test code = 2220) 40 MG/DL CALC LDL CHOL (test code = 2237) 128 MG/DL RISK RATIO LDL/HDL (test code = 3.20 RATIO 2238) COMPREHENSIVE METABOLIC [id number] 00:00:00 Test Item Value Reference Range Interpretation Comments GLUCOSE (test code = 2217) 112 MG/DL BUN (test code = 2208) 21 MG/DL CREATININE (test code = 2214) 0.63 MG/DL eGFR AMER. (test code 113 ML/MIN/1.73 = 23373) eGFR NON- AMER. (test 97 ML/MIN/1.73 code = 56585) CALC BUN/CREAT (test code = 33 RATIO 2235) SODIUM (test code = 2231) 142 MEQ/L POTASSIUM (test code = 2228) 4.4 MEQ/L CHLORIDE (test code = 2215) 104 MEQ/L CARBON DIOXIDE (test code = 28 MEQ/L 2206) CALCIUM (test code = 2209) 9.7 MG/DL PROTEIN, TOTAL (test code = 7.6 G/DL 2228) ALBUMIN (test code = 2201) 4.4 G/DL CALC GLOBULIN (test code = 3.2 G/DL 2240) CALC A/G RATIO (test code = 1.4 RATIO 2234) BILIRUBIN, TOTAL (test code = 0.4 MG/DL 220) ALKALINE PHOSPHATASE (test 80 U/L code = 2204) AST (test code = 2218) 17 U/L ALT (test code = 2219) 18 U/L MICROALBUMIN/CREATININE, RANDOM AND [id number] 00:00:00 Test Item Value Reference Range Interpretation Comments CREATININE, URINE, CONC. (test 121.1 MG/DL code = 207) ALBUMIN, URINE, RANDOM (test code 1.0 MG/DL = 83153) CALC ALBUMIN/CREAT, RND (test 8 MG/G code = 36066) HEMOGLOBIN [id number] 00:00:00 Test Item Value Reference Range Interpretation Comments HEMOGLOBIN A1c (test code = 89922) 6.8 % HEMOGLOBIN [id number] 00:00:00 Test Item Value Reference Range Interpretation Comments HEMOGLOBIN A1c (test code = 39658) 6.8 % HEMOGLOBIN [id number] 00:00:00 Test Item Value Reference Range Interpretation Comments HEMOGLOBIN A1c (test code = 27205) 6.8 % LIPID [id number] 00:00:00 Test Item Value Reference Range Interpretation Comments CHOLESTEROL (test code = 2210) 188 MG/DL TRIGLYCERIDES (test code = 2232) 98 MG/DL HDL CHOLESTEROL (test code = 2220) 40 MG/DL CALC LDL CHOL (test code = 2237) 128 MG/DL RISK RATIO LDL/HDL (test code = 3.20 RATIO 2238) LIPID [id number] 00:00:00 Test Item Value Reference Range Interpretation Comments CHOLESTEROL (test code = 2210) 188 MG/DL TRIGLYCERIDES (test code = 2232) 98 MG/DL HDL CHOLESTEROL (test code = 2220) 40 MG/DL CALC LDL CHOL (test code = 2237) 128 MG/DL RISK RATIO LDL/HDL (test code = 3.20 RATIO 2238) COMPREHENSIVE METABOLIC [id number] 00:00:00 Test Item Value Reference Range Interpretation Comments GLUCOSE (test code = 2217) 112 MG/DL BUN (test code = 2208) 21 MG/DL CREATININE (test code = 2214) 0.63 MG/DL eGFR AMER. (test code 113 ML/MIN/1.73 = 12418) eGFR NON- AMER. (test 97 ML/MIN/1.73 code = 44208) CALC BUN/CREAT (test code = 33 RATIO 2235) SODIUM (test code = 2231) 142 MEQ/L POTASSIUM (test code = 2228) 4.4 MEQ/L CHLORIDE (test code = 2215) 104 MEQ/L CARBON DIOXIDE (test code = 28 MEQ/L 220) CALCIUM (test code = 2209) 9.7 MG/DL PROTEIN, TOTAL (test code = 7.6 G/DL 2228) ALBUMIN (test code = 2201) 4.4 G/DL CALC GLOBULIN (test code = 3.2 G/DL 2240) CALC A/G RATIO (test code = 1.4 RATIO 2234) BILIRUBIN, TOTAL (test code = 0.4 MG/DL 2206) ALKALINE PHOSPHATASE (test 80 U/L code = 2204) AST (test code = 2218) 17 U/L ALT (test code = 2219) 18 U/L COMPREHENSIVE METABOLIC [id number] 00:00:00 Test Item Value Reference Range Interpretation Comments GLUCOSE (test code = 2217) 112 MG/DL BUN (test code = 2208) 21 MG/DL CREATININE (test code = 2214) 0.63 MG/DL eGFR AMER. (test code 113 ML/MIN/1.73 = 86846) eGFR NON- AMER. (test 97 ML/MIN/1.73 code = 43559) CALC BUN/CREAT (test code = 33 RATIO 2235) SODIUM (test code = 2231) 142 MEQ/L POTASSIUM (test code = 2228) 4.4 MEQ/L CHLORIDE (test code = 2215) 104 MEQ/L CARBON DIOXIDE (test code = 28 MEQ/L 2206) CALCIUM (test code = 2209) 9.7 MG/DL PROTEIN, TOTAL (test code = 7.6 G/DL 2228) ALBUMIN (test code = 2201) 4.4 G/DL CALC GLOBULIN (test code = 3.2 G/DL 2240) CALC A/G RATIO (test code = 1.4 RATIO 2234) BILIRUBIN, TOTAL (test code = 0.4 MG/DL 2206) ALKALINE PHOSPHATASE (test 80 U/L code = 2204) AST (test code = 2218) 17 U/L ALT (test code = 2219) 18 U/L MICROALBUMIN/CREATININE, RANDOM AND [id number] 00:00:00 Test Item Value Reference Range Interpretation Comments CREATININE, URINE, CONC. (test 121.1 MG/DL code = 2072) ALBUMIN, URINE, RANDOM (test code 1.0 MG/DL = 53116) CALC ALBUMIN/CREAT, RND (test 8 MG/G code = 32357) MICROALBUMIN/CREATININE, RANDOM AND [id number] 00:00:00 Test Item Value Reference Range Interpretation Comments CREATININE, URINE, CONC. (test 121.1 MG/DL code = 2072) ALBUMIN, URINE, RANDOM (test code 1.0 MG/DL = 01127) CALC ALBUMIN/CREAT, RND (test 8 MG/G code = 23876) HEMOGLOBIN [id number] 00:00:00 Test Item Value Reference Range Interpretation Comments HEMOGLOBIN A1c (test code = 86634) 6.8 % HEMOGLOBIN [id number] 00:00:00 Test Item Value Reference Range Interpretation Comments HEMOGLOBIN A1c (test code = 23381) 6.8 % HEMOGLOBIN [id number] 00:00:00 Test Item Value Reference Range Interpretation Comments HEMOGLOBIN A1c (test code = 91869) 6.8 % LIPID [id number] 00:00:00 Test Item Value Reference Range Interpretation Comments CHOLESTEROL (test code = 2210) 188 MG/DL TRIGLYCERIDES (test code = 2232) 98 MG/DL HDL CHOLESTEROL (test code = 2220) 40 MG/DL CALC LDL CHOL (test code = 2237) 128 MG/DL RISK RATIO LDL/HDL (test code = 3.20 RATIO 2238) LIPID [id number] 00:00:00 Test Item Value Reference Range Interpretation Comments CHOLESTEROL (test code = 2210) 188 MG/DL TRIGLYCERIDES (test code = 2232) 98 MG/DL HDL CHOLESTEROL (test code = 2220) 40 MG/DL CALC LDL CHOL (test code = 2237) 128 MG/DL RISK RATIO LDL/HDL (test code = 3.20 RATIO 2238) COMPREHENSIVE METABOLIC [id number] 00:00:00 Test Item Value Reference Range Interpretation Comments GLUCOSE (test code = 2217) 112 MG/DL BUN (test code = 2208) 21 MG/DL CREATININE (test code = 2214) 0.63 MG/DL eGFR AMER. (test code 113 ML/MIN/1.73 = 83237) eGFR NON- AMER. (test 97 ML/MIN/1.73 code = 34508) CALC BUN/CREAT (test code = 33 RATIO 2235) SODIUM (test code = 2231) 142 MEQ/L POTASSIUM (test code = 2228) 4.4 MEQ/L CHLORIDE (test code = 2215) 104 MEQ/L CARBON DIOXIDE (test code = 28 MEQ/L 220) CALCIUM (test code = 2209) 9.7 MG/DL PROTEIN, TOTAL (test code = 7.6 G/DL 2228) ALBUMIN (test code = 2201) 4.4 G/DL CALC GLOBULIN (test code = 3.2 G/DL 2240) CALC A/G RATIO (test code = 1.4 RATIO 2234) BILIRUBIN, TOTAL (test code = 0.4 MG/DL 220) ALKALINE PHOSPHATASE (test 80 U/L code = 2204) AST (test code = 2218) 17 U/L ALT (test code = 2219) 18 U/L COMPREHENSIVE METABOLIC [id number] 00:00:00 Test Item Value Reference Range Interpretation Comments GLUCOSE (test code = 2217) 112 MG/DL BUN (test code = 2208) 21 MG/DL CREATININE (test code = 2214) 0.63 MG/DL eGFR AMER. (test code 113 ML/MIN/1.73 = 04669) eGFR NON- AMER. (test 97 ML/MIN/1.73 code = 82971) CALC BUN/CREAT (test code = 33 RATIO 2235) SODIUM (test code = 2231) 142 MEQ/L POTASSIUM (test code = 2228) 4.4 MEQ/L CHLORIDE (test code = 2215) 104 MEQ/L CARBON DIOXIDE (test code = 28 MEQ/L 2206) CALCIUM (test code = 2209) 9.7 MG/DL PROTEIN, TOTAL (test code = 7.6 G/DL 2229) ALBUMIN (test code = 2201) 4.4 G/DL CALC GLOBULIN (test code = 3.2 G/DL 2239) CALC A/G RATIO (test code = 1.4 RATIO 4) BILIRUBIN, TOTAL (test code = 0.4 MG/DL 2206) ALKALINE PHOSPHATASE (test 80 U/L code = 2204) AST (test code = 2218) 17 U/L ALT (test code = 2219) 18 U/L MICROALBUMIN/CREATININE, RANDOM AND [id number] 00:00:00 Test Item Value Reference Range Interpretation Comments CREATININE, URINE, CONC. (test 121.1 MG/DL code = 2072) ALBUMIN, URINE, RANDOM (test code 1.0 MG/DL = 88426) CALC ALBUMIN/CREAT, RND (test 8 MG/G code = 62887) MICROALBUMIN/CREATININE, RANDOM AND [id number] 00:00:00 Test Item Value Reference Range Interpretation Comments CREATININE, URINE, CONC. (test 121.1 MG/DL code = 2072) ALBUMIN, URINE, RANDOM (test code 1.0 MG/DL = 75508) CALC ALBUMIN/CREAT, RND (test 8 MG/G code = 96099) HEMOGLOBIN [id number] 00:00:00 Test Item Value Reference Range Interpretation Comments HEMOGLOBIN A1c (test code = 92109) 6.8 % HEMOGLOBIN [id number] 00:00:00 Test Item Value Reference Range Interpretation Comments HEMOGLOBIN A1c (test code = 35333) 6.8 % HEMOGLOBIN [id number] 00:00:00 Test Item Value Reference Range Interpretation Comments HEMOGLOBIN A1c (test code = 12196) 6.8 % LIPID [id number] 00:00:00 Test Item Value Reference Range Interpretation Comments CHOLESTEROL (test code = 2210) 188 MG/DL TRIGLYCERIDES (test code = 2232) 98 MG/DL HDL CHOLESTEROL (test code = 2220) 40 MG/DL CALC LDL CHOL (test code = 2237) 128 MG/DL RISK RATIO LDL/HDL (test code = 3.20 RATIO 2238) LIPID [id number] 00:00:00 Test Item Value Reference Range Interpretation Comments CHOLESTEROL (test code = 2210) 188 MG/DL TRIGLYCERIDES (test code = 2232) 98 MG/DL HDL CHOLESTEROL (test code = 2220) 40 MG/DL CALC LDL CHOL (test code = 2237) 128 MG/DL RISK RATIO LDL/HDL (test code = 3.20 RATIO 2238) COMPREHENSIVE METABOLIC [id number] 00:00:00 Test Item Value Reference Range Interpretation Comments GLUCOSE (test code = 2217) 112 MG/DL BUN (test code = 2208) 21 MG/DL CREATININE (test code = 2214) 0.63 MG/DL eGFR AMER. (test code 113 ML/MIN/1.73 = 52507) eGFR NON- AMER. (test 97 ML/MIN/1.73 code = 98407) CALC BUN/CREAT (test code = 33 RATIO 2235) SODIUM (test code = 2231) 142 MEQ/L POTASSIUM (test code = 2228) 4.4 MEQ/L CHLORIDE (test code = 2215) 104 MEQ/L CARBON DIOXIDE (test code = 28 MEQ/L 220) CALCIUM (test code = 2209) 9.7 MG/DL PROTEIN, TOTAL (test code = 7.6 G/DL 2228) ALBUMIN (test code = 2201) 4.4 G/DL CALC GLOBULIN (test code = 3.2 G/DL 2240) CALC A/G RATIO (test code = 1.4 RATIO 4) BILIRUBIN, TOTAL (test code = 0.4 MG/DL 2206) ALKALINE PHOSPHATASE (test 80 U/L code = 2204) AST (test code = 2218) 17 U/L ALT (test code = 2219) 18 U/L COMPREHENSIVE METABOLIC [id number] 00:00:00 Test Item Value Reference Range Interpretation Comments GLUCOSE (test code = 2217) 112 MG/DL BUN (test code = 2208) 21 MG/DL CREATININE (test code = 2214) 0.63 MG/DL eGFR AMER. (test code 113 ML/MIN/1.73 = 49758) eGFR NON- AMER. (test 97 ML/MIN/1.73 code = 73575) CALC BUN/CREAT (test code = 33 RATIO 2235) SODIUM (test code = 2231) 142 MEQ/L POTASSIUM (test code = 2228) 4.4 MEQ/L CHLORIDE (test code = 2215) 104 MEQ/L CARBON DIOXIDE (test code = 28 MEQ/L 2206) CALCIUM (test code = 2209) 9.7 MG/DL PROTEIN, TOTAL (test code = 7.6 G/DL 2228) ALBUMIN (test code = 2201) 4.4 G/DL CALC GLOBULIN (test code = 3.2 G/DL 2239) CALC A/G RATIO (test code = 1.4 RATIO 2233) BILIRUBIN, TOTAL (test code = 0.4 MG/DL 2206) ALKALINE PHOSPHATASE (test 80 U/L code = 220) AST (test code = 2218) 17 U/L ALT (test code = 2219) 18 U/L MICROALBUMIN/CREATININE, RANDOM AND [id number] 00:00:00 Test Item Value Reference Range Interpretation Comments CREATININE, URINE, CONC. (test 121.1 MG/DL code = 2072) ALBUMIN, URINE, RANDOM (test code 1.0 MG/DL = 10834) CALC ALBUMIN/CREAT, RND (test 8 MG/G code = 12015) MICROALBUMIN/CREATININE, RANDOM AND [id number] 00:00:00 Test Item Value Reference Range Interpretation Comments CREATININE, URINE, CONC. (test 121.1 MG/DL code = 2072) ALBUMIN, URINE, RANDOM (test code 1.0 MG/DL = 51576) CALC ALBUMIN/CREAT, RND (test 8 MG/G code = 92169)
[2022-12-18 19:57] LABS: Albumin 3.9 g/dL (3.4-5.0); Bilirubin Total 0.3 mg/dL (0.2-1.0); Potassium 3.8 mmol/L (3.5-5.1); Protein, Total 8.3 g/dL (6.4-8.2)
[2022-12-18] MEDS ORDERED: MORPHINE 4 MG/ML SYR ONE (20:19)
[2022-12-18] MEDS ORDERED: ONDANSETRON 4 MG/2 ML VIAL ONE (20:19)
--- NOTE | 2022-12-18 21:02 | RAD REPORT ---
EXAM DESCRIPTION: CT - Abdomen Pelvis W Contrast - 12/18/2022 8:47 pm CLINICAL HISTORY: Abdominal pain COMPARISON: none. TECHNIQUE: Computed axial tomography of the abdomen pelvis was obtained. 125 cc [id number] was admin istered intravenously. Oral contrast was not requested which limits evaluation of bowel and appendix All CT scans are performed using dose optimization technique as appropriate and may include automated exposure control or mA/KV adjustment according to patient size. FINDINGS: The liver, spleen, pancreas, adrenal and left kidney appear unremarkable. Enhancement of the wall of the right renal pelvis and portions of the right ureter. No hydronephrosis . No renal mass. There is no evidence of diverticulitis. Normal appendix. No evidence of diverticulitis. No adnexal mass. 5.6 centimeter fatty mass descending colon. Mild to moderate stranding within the central mesentery. Speckled lesion within the L2 vertebral body likely hemangioma Small gallbladder density. No gallbladder wall thickening IMPRESSION: Enhancement of the wall of the right renal pelvis and portions of the right ureter proba nati indicating infection. Mild to moderate stranding within the central mesentery likely indicating inflammation Small gallbladder density likely either a polyp or stone. No evidence cholecystitis
[2022-12-18 21:15] LABS: Urine Blood 2+ (Negative); Urine Glucose Negative (Negative); Urine Protein 2+ (Negative)
[2022-12-18 21:24] LABS: Urine Bacteria <20 /HPF (<20); Urine Crystals Unidentified Few /HPF (None Seen); Urine RBC >50 /HPF (None Seen); Urine WBC Clump Occasional /HPF (None Seen)
--- NOTE | 2022-12-18 22:43 | EDPHYS ---
Physician Documentation [facility] Name: Gina Germain Age: 62 yrs Sex: Female : 1960 Arrival Date: 12/18/2022 Time: 19:04 Bed 19 Private MD: ED Physician Дмитрий Isbell HPI: 12/18 19:30 This 62 yrs old Female presents to ER via Ambulatory with complaints of rt Abdominal Pain - right side. 19:30 The patient presents with abdominal pain. Onset: The symptoms/episode began/occurred rt acutely, 5 hour(s) ago. The symptoms radiate to the right flank. Associated signs and symptoms: none. The symptoms are described as achy. Modifying factors: The symptoms are alleviated by nothing, the symptoms are aggravated by. Severity of pain: At its worst the pain was moderate. The patient has not experienced similar symptoms in the past. Historical: - Allergies: 19:13 No Known Allergies; ll3 - Home Meds: 19:13 metformin 500 mg Oral tab 1 tab [Active]; ll3 - PMHx: 19:13 Diabetes mellitus; Hypertensive disorder; Hypercholesterolemia; ll3 - PSHx: 19:13 section; ll3 - Immunization history:: Client reports receiving the 2nd dose of the Covid vaccine. - Social history:: Smoking status: Patient denies any tobacco usage or history of. - Family history:: not pertinent. ROS: 19:30 Constitutional: Negative for fever, chills, and weight loss, Eyes: Negative for injury, rt pain, redness, and discharge, Cardiovascular: Negative for chest pain, palpitations, and edema, Respiratory: Negative for shortness of breath, cough, wheezing, and pleuritic chest pain, MS/Extremity: Negative for injury and deformity, Skin: Negative for injury, rash, and discoloration, Neuro: Negative for headache, weakness, numbness, tingling, and seizure, Psych: Negative for depression, anxiety, suicide ideation, homicidal ideation, and hallucinations. 19:30 Abdomen/GI: Positive for abdominal pain, Negative for nausea and vomiting. Exam: 19:30 Constitutional: This is a well developed, well nourished patient who is awake, alert, rt and in no acute distress. Head/Face: Normocephalic, atraumatic. Neck: Trachea midline, no thyromegaly or masses palpated, and no cervical lymphadenopathy. Supple, full range of motion without nuchal rigidity, or vertebral point tenderness. No Meningismus. Chest/axilla: Normal chest wall appearance and motion. Nontender with no deformity. No lesions are appreciated. Cardiovascular: Regular rate and rhythm with a normal S1 and S2. No gallops, murmurs, or rubs. Normal PMI, no JVD. No pulse deficits. Respiratory: Lungs have equal breath sounds bilaterally, clear to auscultation and percussion. No rales, rhonchi or wheezes noted. No increased work of breathing, no retractions or nasal flaring. Skin: Warm, dry with normal turgor. Normal color with no rashes, no lesions, and no evidence of cellulitis. MS/ Extremity: Pulses equal, no cyanosis. Neurovascular intact. Full, normal range of motion. Neuro: Awake and alert, GCS 15, oriented to person, place, time, and situation. Cranial nerves II-XII grossly intact. Motor strength 5/5 in all extremities. Sensory grossly intact. Cerebellar exam normal. Normal gait. Psych: Awake, alert, with orientation to person, place and time. Behavior, mood, and affect are within normal limits. 19:30 Abdomen/GI: Tenderness to the right lower quadrant without rebound, guarding, distention. Vital Signs: 19:11 BP 146 / 57; Pulse 77; Resp 17; Temp 99.1(TE); Pulse Ox 100% on R/A; Weight 69.4 kg ll3 (R); Height 5 ft. 6 in. (167.64 cm) (R); Pain 9/10; 22:00 BP 104 / 53; Pulse 75; Resp 16; Pulse Ox 98% on R/A; jb4 23:00 BP 108 / 55; Pulse 74; Resp 16; Pulse Ox 100% on R/A; jb4 19:11 Body Mass Index 24.69 (69.40 kg, 167.64 cm) ll3 MDM: 19:18 Patient medically screened. rt 22:44 Differential diagnosis: Nephrolithiasis, cholecystitis, bowel obstruction, rt pyelonephritis, appendicitis. Data reviewed: vital signs, nurses notes, lab test result(s), radiologic studies. Consideration of Admission/Observation Escalation of care including admission/observation considered. Pain well controlled, no evidence of sepsis, labs benign, admission not indicated. I considered the following discharge prescriptions or medication management in the emergency department Medications were administered in the Emergency Department. See MAR. Test considered but Not performed: EKG: Lower abdominal pain, low suspicion for cardiac etiology, EKG not indicated. Care significantly affected by the following chronic conditions: Diabetes, Hypertension. Counseling: I had a detailed discussion with the patient and/or guardian regarding: the historical points, exam findings, and any diagnostic results supporting the discharge/admit diagnosis, lab results, radiology results, the need for outpatient follow up, to return to the emergency department if symptoms worsen or persist or if there are any questions or concerns that arise at home. Response to treatment: the patient's symptoms have resolved after treatment. 12/18 19:25 Order name: CBC with Diff rt 12/18 19:25 Order name: CMP rt 12/18 19:25 Order name: Lipase rt 12/18 19:25 Order name: Urine Microscopic Only rt 12/18 19:53 Order name: CBC with Automated Diff; Complete Time: 20:16 EDMS 12/18 19:57 Order name: Comprehensive Metabolic Panel; Complete Time: 20:16 EDMS 12/18 19:25 Order name: CT Abd/Pelvis - IV Contrast Only rt 12/18 19:57 Order name: Lipase; Complete Time: 20:16 EDMS 12/18 21:03 Order name: CT; Complete Time: 21:05 EDMS 12/18 21:15 Order name: Urine Dipstick-Ancillary; Complete Time: 22:29 EDMS 12/18 21:25 Order name: Urine Microscopic Only; Complete Time: 22:29 EDMS 12/18 19:25 Order name: Urine Dipstick-Ancillary (obtain specimen); Complete Time: 23:04 rt Administered Medications: 20:21 Drug: morphine 4 mg Route: IVP; Infused Over: 4 mins; Site: right forearm; jb4 21:00 Follow up: Response: No adverse reaction; Marked relief of symptoms jb4 20:21 Drug: Zofran (Ondansetron) 4 mg Route: IVP; Site: right forearm; jb4 21:00 Follow up: Response: No adverse reaction; Marked relief of symptoms jb4 22:58 Drug: Rocephin - (cefTRIAXone) 2 grams Route: IVPB; Infused Over: 30 mins; Site: right jb4 forearm; 23:30 Follow up: Response: No adverse reaction; Marked relief of symptoms; IV Status: jb4 Infusion continued; IV Intake: 100ml Disposition Summary: 12/18/22 22:42 Discharge Ordered Location: Home rt Problem: new rt Symptoms: have improved rt Condition: Stable rt Diagnosis - Pyelonephritis acute rt Followup: rt - With: Private Physician - When: 2 - 3 days - Reason: Discharge Instructions: - Discharge Summary Sheet rt - Pyelonephritis, Adult rt Forms: - Medication Reconciliation Form rt - Thank You Letter rt - Antibiotic Education rt - Prescription Opioid Use rt Prescriptions: - cefpodoxime 200 mg Oral Tablet - take 1 tablet by ORAL route every 12 hours with food; 20 tablet; Refills: 0, rt Product Selection Permitted Signatures: Dispatcher [employer] EDErick Alejo RN RN jb4 Carissa Pierce RN RN ll3 Дмитрий Isbell MD MD rt Corrections: (The following items were deleted from the chart) 19:16 19:13 PSHx: None; hero3 hero3
--- NOTE | 2022-12-18 22:43 | ER ---
Nurse's Notes [facility] Name: Gina Germain Age: 62 yrs Sex: Female : 1960 Arrival Date: 12/18/2022 Time: 19:04 Bed 19 Private MD: Diagnosis: Pyelonephritis acute Presentation: 12/18 19:11 Chief complaint: Patient states: C/o right sided abdominal pain 07/09. Coronavirus ll3 screen: Vaccine status: Patient reports receiving the 2nd dose of the covid vaccine. Ebola Screen: No symptoms or risks identified at this time. Initial Sepsis Screen: Does the patient meet any 2 criteria? No. Patient's initial sepsis screen is negative. Does the patient have a suspected source of infection? No. Patient's initial sepsis screen is negative. Risk Assessment: Do you want to hurt yourself or someone else? Patient reports no desire to harm self or others. Onset of symptoms was December 18, 2022. 19:11 Method Of Arrival: Ambulatory ll3 19:11 Acuity: JONATHAN 3 ll3 Triage Assessment: 19:13 General: Appears uncomfortable, Behavior is calm, cooperative. Pain: Complains of pain ll3 in right upper quadrant and right lower quadrant Pain radiates to right mid back and right low back Pain currently is 9 out of 10 on a pain scale. GI: Abdomen is round non-distended, Reports lower abdominal pain, upper abdominal pain. Historical: - Allergies: 19:13 No Known Allergies; ll3 - Home Meds: 19:13 metformin 500 mg Oral tab 1 tab [Active]; ll3 - PMHx: 19:13 Diabetes mellitus; Hypertensive disorder; Hypercholesterolemia; ll3 - PSHx: 19:13 section; ll3 - Immunization history:: Client reports receiving the 2nd dose of the Covid vaccine. - Social history:: Smoking status: Patient denies any tobacco usage or history of. - Family history:: not pertinent. Screenin:00 [facility] ED Fall Risk Assessment (Adult) History of falling in the last 3 months, jb4 including since admission No falls in past 3 months (0 pts) Confusion or Disorientation No (0 pts) Score/Fall Risk Level 0 - 2 = Low Risk Oriented to surroundings, Maintained a safe environment. Abuse screen: Denies threats or abuse. Nutritional screening: No deficits noted. Tuberculosis screening: No symptoms or risk factors identified. Assessment: 20:20 General: Appears in no apparent distress. uncomfortable, Behavior is calm, cooperative, jb4 appropriate for age. Pain: Complains of pain in abdomen Pain does not radiate. Pain currently is 9 out of 10 on a pain scale. Neuro: Level of Consciousness is awake, alert, obeys commands, Oriented to person, place, time, situation. Cardiovascular: Patient's skin is warm and dry. Respiratory: Airway is patent Respiratory effort is even, unlabored, Respiratory pattern is regular, symmetrical. GI: Abdomen is flat, non-distended, Reports lower abdominal pain, Patient currently denies nausea, vomiting. : No signs and/or symptoms were reported regarding the genitourinary system. EENT: No signs and/or symptoms were reported regarding the EENT system. Derm: Skin is intact, Skin is pink, warm \T\ dry. Musculoskeletal: Circulation, motion, and sensation intact. Range of motion: intact in all extremities. 22:00 Reassessment: Patient appears in no apparent distress at this time. Patient and/or jb4 family updated on plan of care and expected duration. Pain level reassessed. Patient is alert, oriented x 3, equal unlabored respirations, skin warm/dry/pink. 22:58 Reassessment: Patient appears in no apparent distress at this time. Patient and/or jb4 family updated on plan of care and expected duration. Pain level reassessed. Patient is alert, oriented x 3, equal unlabored respirations, skin warm/dry/pink. D/c pending completion of IV antibiotics. 12/19 00:00 Reassessment: Patient appears in no apparent distress at this time. Patient and/or jb4 family updated on plan of care and expected duration. Pain level reassessed. Patient is alert, oriented x 3, equal unlabored respirations, skin warm/dry/pink. Vital Signs: 12/18 19:11 BP 146 / 57; Pulse 77; Resp 17; Temp 99.1(TE); Pulse Ox 100% on R/A; Weight 69.4 kg ll3 (R); Height 5 ft. 6 in. (167.64 cm) (R); Pain 9/10; 22:00 BP 104 / 53; Pulse 75; Resp 16; Pulse Ox 98% on R/A; jb4 23:00 BP 108 / 55; Pulse 74; Resp 16; Pulse Ox 100% on R/A; jb4 19:11 Body Mass Index 24.69 (69.40 kg, 167.64 cm) ll3 ED Course: 19:04 Patient arrived in ED. am2 19:04 Дмитрий Isbell MD is Attending Physician. rt 19:13 Triage completed. ll3 19:13 Arm band placed on Patient placed in an exam room, on a stretcher, on pulse oximetry. ll3 19:33 Inserted saline lock: 20 gauge in right forearm, using aseptic technique. Blood mb9 collected. 19:49 Erick Higuera, RN is Primary Nurse. jb4 19:50 CBC with Diff Sent. jb4 19:50 CMP Sent. jb4 19:50 Lipase Sent. jb4 23:00 Patient has correct armband on for positive identification. Placed in gown. Bed in low jb4 position. Call light in reach. Side rails up X 1. 12/19 00:02 No provider procedures requiring assistance completed. IV discontinued, intact, jb4 bleeding controlled, No redness/swelling at site. Pressure dressing applied. Administered Medications: 12/18 20:21 Drug: morphine 4 mg Route: IVP; Infused Over: 4 mins; Site: right forearm; jb4 21:00 Follow up: Response: No adverse reaction; Marked relief of symptoms jb4 20:21 Drug: Zofran (Ondansetron) 4 mg Route: IVP; Site: right forearm; jb4 21:00 Follow up: Response: No adverse reaction; Marked relief of symptoms jb4 22:58 Drug: Rocephin - (cefTRIAXone) 2 grams Route: IVPB; Infused Over: 30 mins; Site: right jb4 forearm; 23:30 Follow up: Response: No adverse reaction; Marked relief of symptoms; IV Status: jb4 Infusion continued; IV Intake: 100ml Medication: 23:00 VIS not applicable for this client. jb4 Intake: 23:30 IV: 100ml; Total: 100ml. jb4 Outcome: 22:42 Discharge ordered by . rt 12/19 00:02 Discharged to home ambulatory. jb4 Condition: stable Discharge instructions given to patient, family, Instructed on discharge instructions, follow up and referral plans. medication usage, Demonstrated understanding of instructions, follow-up care, medications, Prescriptions given X 1. 00:03 Patient left the ED. jb4 Signatures: Erick Higuera RN RN jb4 Macey Motta Lynsea RN RN ll3 Nikky Garcia RN RN mb9 Дмитрий Isbell MD MD rt Corrections: (The following items were deleted from the chart) 12/18 19:16 19:13 PSHx: None; ll3 ll3
[2022-12-18] MEDS ORDERED: CEFTRIAXONE 1000 MG/VIAL ONE (22:54)
[2022-12-18] MEDS ORDERED: NA CHLORIDE 0.9% 100 ML ONE (22:54)
[2022-12-19 01:13] VITALS: TEMP 99.1; O2SAT 100
[2022-12-19 01:41] VITALS: BP 108/55
== END 2022-12-19 00:03 | disposition home or self-care (01) ==
LOC: ER 19:03
DX: N10 Acute pyelonephritis (principal); E11.9 Type 2 diabetes mellitus without complications; I10 Essential (primary) hypertension
CPT/HCPCS: 96365; 87088; 85025; 87086; 36415; 87077; 87186; 83690; 80053; 74177; 96375; 99284; Q9967; J2405; 81003; 81015

== ENCOUNTER 2024-08-25 09:20 | Emergency (ER) | payer OTHER ==
--- OUTSIDE RECORDS SUMMARY | 2024-08-25 09:27 | XMS REPORT | Continuity of Care Document ---
Author Name Unknown Address [address] [facility] [address] [place] [address] [facility] thconnect Address [address] [facility] [address] [place] [address] Care Team Providers Care Bridge/Structure Inspection Team Leader Name Role Phone Nunez Gladys KEITA Primary Care Physician TIBURCIO MERIDA Attending Clinician Unavailable LAB90 Attending Clinician Unavailable JANELL Attending Clinician Unavailable SHAILESH LEMON Attending Clinician Unavailable TOMOGRAPHY, CK [facility] Attending Clini pablo Unavailable CARMELO ACEVEDO Attending Clinician Unavailable MD AMISH Attending Clinician Unavailab le Payers Payer Name Policy Type Policy Number Effective Date Expirati on Date Source AEMAZIN FRANK [facility] [employer] 94 ON 9 [id number] 2024 00:00:00 Problems Condition Name Condition Details Condition Category Status Onset Date Resolution Date Last Treatment Date Treating Clinician Comments Source History of hypertensi on History of hypertensi on Disease Active 02-04 00:00: 00 [facility] - Externa l 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) - Controlled 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) - Controlled Disease Active 05-19 00:00: 00 Glo [facility]hu - Externa l Retinopath y, background , nonprolife rative, mild - Controlled Retinopath y, background , nonprolife rative, mild - Controlled Disease Active 05-19 00:00: 00 Gl[facility]hu - Externa l Gastroesop hageal reflux disease without esophagiti s Gastroesop hageal reflux disease without esophagiti s Disease Active 02-14 00:00: 00 lGo Sandhu - Externa l Urinary incontinen ce Urinary incontinen ce Disease Active 01-17 00:00: 00 Gl[facility] - Externa l Seasonal allergic rhinitis due to pollen Seasonal allergic rhinitis due to pollen Disease Active 01-17 00:00: 00 [facility] - Externa l Arthritis Arthritis Disease Active 01-17 00:00: 00 [facility] - Externa l Primary hypertensi on Primary hypertensi on Disease Active 01-17 00:00: 00 Glo [facility]hu - Externa l DM type 2 with diabetic mixed hyperlipid emia (multi HCC) DM type 2 with diabetic mixed hyperlipid emia (multi HCC) Disease Active 01-17 00:00: 00 Glo [facility]hu - Radhaa star Social History Social Habit Start Date Stop Date Quantity Comments Source Gender identity Natalie Sandhu - External Sexual orientation Leslee Sandhu - External Alcoholic beverage intake 2024-02-05 00:00:00 2024-02-05 00:00:00 Lifetime non-drinker (finding) Glo [facility]hu - External Alcohol intake 2023-10-06 00:00:00 2023-10-06 00:00:00 Lifetime non-drinker (finding) Glo [facility]hu - External History of Social function 2023-07-17 00:00:00 2023-07-17 00:00:00 Glo [facility]hu - External Tobacco use and exposure 2023-01-17 00:00:00 2023-01-17 00:00:00 Smokeless tobacco non-user Glo [facility]hu - External Education - What is the highest level of school you have completed or the highest degree you have received? 2023-01-17 00:00:00 2023-01-17 00:00:00 3rd grade Glo Sandhu - External Sex assigned at 1960 00:00:00 1960 00:00:00 Glo [facility]hu - External Smoking Status Start Date Stop Date Source Never smoked tobacco Glo [facility]hu - External Medications Ordered Medication Name Filled Medication Name Start Date Stop Date Current Medication? Ordering Clinician Indication Dosage Frequency Signature (SIG) Comments Components Source metformin 500 mg tablet 07-29 00:00: 00 Yes mg [facility] meloxicam 7.5 mg tablet 30 00:00: 00 Yes mg [facility] oxybutynin chloride 5 mg tablet 30 00:00: 00 Yes mg [facility] rosuvastati n 5 mg tablet 30 00:00: 00 Yes mg [facility] omeprazole 40 mg capsule,del ayed release 07-29 00:00: 00 Yes 1mg [facility] meloxicam 7.5 mg tablet 07-09 00:00: 00 Yes mg [facility] oxybutynin chloride 5 mg tablet 07-09 00:00: 00 Yes mg [facility] metformin 500 mg tablet 8-14 00:00: 00 Yes mg [facility] rosuvastati n 5 mg tablet 17 00:00: 00 Yes mg [facility] Oxybutynin Chloride 15 MG oral TABLET SR 24 HR 08 00:00: 00 Yes [id number] 15mg Take 1 tablet (15 mg total) by mouth daily. [facility] Meloxicam 7.5 MG oral Tablet 02-04 00:00: 00 Yes [id number] 7.5mg QD Take 1 tablet (7.5 mg total) by mouth daily as needed for pain. [facility] Meloxicam 7.5 MG oral Tablet 08 00:00: 00 02-04 00:00 :00 No [id number] 7.5mg QD Take 1 tablet (7.5 mg total) by mouth daily as needed for pain. [facility] METFORMIN 500MG -17 00:00: 00 Yes [facility] MELOXICAM 7.5MG 1-07 00:00: 00 Yes [facility] Meloxicam 7.5 MG oral Tablet 2022-10 2-08 00:00: 00 Yes [id number] 7.5mg QD Take 1 tablet (7.5 mg total) by mouth daily as needed for pain. [facility] Blood Glucose Monitoring Suppl (Blood Glucose Monitor System) w/Device does not apply Kit 2022-10 00:00: 00 Yes [id number] 3 Check BS daily. [facility] Glucose Blood in vitro Strip 2022-10 00:00: 00 Yes [id number] 3 1{each} 1 each by other route daily Check BS daily. [facility] Lancets 33G does not apply Misc 2022-10 00:00: 00 Yes [id number] 3 1{appli cation} 1 Applicatio n by does not apply route daily Check BS daily. [facility] MELOXICAM 7.5MG 2022-10 00:00: 00 Yes 75 [facility] ROSUVASTATI N 5MG 2022-10 0-20 00:00: 00 Yes 5000 [facility] LISINOPRIL 5MG 2022-10 0-20 00:00: 00 Yes 5000 [facility] OXYBUTYNIN 10MG ER 2022-10 0-20 00:00: 00 Yes [id number] [facility] Omeprazole 20 MG oral Delayed Release Capsule - 00:00: 00 Yes 20mg QD Take 1 capsule (20 mg total) by mouth daily as needed [facility] Simethicone 80 MG oral Tablet 8- 00:00: 00 Yes [id number] 1{tbl} Q.[id number] 3D Take 1 tablet by mouth 3 times daily as needed [facility] Omeprazole 20 MG oral Delayed Release Capsule 05-19 14:47: 20 Yes 20mg QD Take 1 capsule (20 mg total) by mouth daily as needed [facility] Omeprazole 20 MG oral Delayed Release Capsule 05-18 14:00: 21 Yes 20mg QD Take 1 capsule (20 mg total) by mouth daily as needed [facility] Loratadine (CLARITIN) 10 MG oral tablet - 00:00: 05-18 00:00 :00 No 10mg Take 1 tablet (10 mg total) by mouth daily [facility] Simethicone 80 MG oral Tablet 05-16 00:00: 00 Yes [id number] 1{tbl} Q.[id number] 3D Take 1 tablet by mouth 3 times daily as needed [facility] Metformin HCl 500 MG oral Tablet 05-16 00:00: 00 Yes [id number] 3 500mg Take 1 tablet (500 mg total) by mouth in the morning and 1 tablet (500 mg total) in the evening. Take with meals. [facility] TAKE ONE (1) TABLET(S) BY MOUTH TWICE A DAY WITH MEALS. 05-16 00:00: 00 Yes [facility] Loratadine (CLARITIN) 10 MG oral tablet 02-16 00:00: 00 05-16 00:00 :00 No 10mg Take 1 tablet (10 mg total) by mouth daily [facility] Omeprazole 20 MG oral Delayed Release Capsule 02-14 11:16: 11 Yes 20mg QD Take 1 capsule (20 mg total) by mouth daily as needed [facility] Rosuvastati n Calcium 5 MG oral Tablet 02-14 11:08: 23 Yes 5mg Take 1 tablet (5 mg total) by mouth daily [facility] Loratadine 10 MG oral Capsule 02-14 11:08: 23 Yes 10mg Take 1 capsule (10 mg total) by mouth daily [facility] Loratadine 10 MG oral Capsule 02-14 00:00: 00 Yes [id number] 10mg Take 1 capsule (10 mg total) by mouth daily [facility] Rosuvastati n Calcium 5 MG oral Tablet 02-14 00:00: 00 Yes 5mg Take 1 tablet (5 mg total) by mouth daily [facility] TAKE ONE (1) TABLET(S) BY MOUTH ONCE A DAY. 02-14 00:00: 00 Yes [facility] TAKE ONE (1) TABLET(S) BY MOUTH ONCE A DAY. 02-14 00:00: 00 Yes [facility] TAKE ONE (1) TABLET(S) BY MOUTH DAILY. 02-14 00:00: 00 Yes [facility] Lisinopril 5 MG oral Tablet 02-14 00:00: 00 02-04 00:00 :00 No [id number] 5mg Take 1 tablet (5 mg total) by mouth daily [facility] Oxybutynin Chloride 10 MG oral TABLET SR 24 HR 02-14 00:00: 00 02-04 00:00 :00 No [id number] 10mg Take 1 tablet (10 mg total) by mouth daily [facility] Rosuvastati n Calcium 5 MG oral Tablet 01-17 15:55: 20 Yes 5mg Take 5 mg by mouth daily [facility] Loratadine 10 MG oral Capsule 01-17 15:55: 20 Yes 10mg Take 10 mg by mouth daily [facility] Metformin HCl 500 MG oral Tablet 01-17 00:00: 00 05-16 00:00 :00 No [id number] 3 500mg Take 1 tablet (500 mg total) by mouth in the morning and 1 tablet (500 mg total) in the evening. Take with meals. [facility] CIPROFLOXAC N 500MG 2-25 00:00: 00 Yes [facility] CEFPODOXIME 200MG 2-20 00:00: 00 01-24 00:00 :00 No [facility] TAKE 1 TABLET BY MOUTH EVERY 12 HOURS 2-19 00:00: 00 01-24 00:00 :00 No [facility] Oxybutynin Chloride 10 MG oral TABLET SR 24 HR - 00:00: 00 Yes 1{tbl} Take 1 tablet by mouth daily [facility] Meloxicam 7.5 MG oral Tablet - 00:00: 00 Yes 1{tbl} Take 1 tablet by mouth daily [facility] Lisinopril 10 MG oral Tablet 11-21 00:00: 00 Yes 1{tbl} Take 1 tablet by mouth daily [facility] TAKE 1 TABLET DAILY. 11-21 00:00: 00 01-24 00:00 :00 No 5 [facility] TAKE 1 TABLET DAILY. 11-21 00:00: 00 01-24 00:00 :00 No 10 [facility] TAKE 1 TABLET TWICE DAILY WITH FOOD. 11-21 00:00: 00 01-24 00:00 :00 No 500 [facility] TAKE 1 TABLET BY MOUTH DAILY DIRECTED 11-21 00:00: 00 01-24 00:00 :00 No 10 [facility] TAKE 1 TABLET DAILY. 11-21 00:00: 00 01-24 00:00 :00 No 75 [facility] LISINOPRIL 10MG 11-21 00:00: 00 01-24 00:00 :00 No [facility] TAKE 1 TABLET BY MOUTH DAILY 11-21 00:00: 00 01-24 00:00 :00 No 20 [facility] Oxybutynin Chloride 10 MG oral TABLET SR 24 HR 11-21 00:00: 00 02-14 00:00 :00 No 10mg Take 1 tablet (10 mg total) by mouth daily [facility] Meloxicam 7.5 MG oral Tablet 11-21 00:00: 00 02-14 00:00 :00 No 7.5mg Take 1 tablet (7.5 mg total) by mouth daily [facility] Lisinopril 10 MG oral Tablet 11-21 00:00: 00 02-14 00:00 :00 No 10mg Take 1 tablet (10 mg total) by mouth daily [facility] OXYBUTYNIN CHLORIDE ER 10MG ER TAB 2021-10 2-15 00:00: 00 01-24 00:00 :00 No 10 [facility] METFORMIN HYDROCHLORI DE 500MG TAB 2021-10 2 00:00: 00 01-24 00:00 :00 No 500 [facility] APPLY TO AFFECTED AREA ON THE SKIN 3 TIMES DAILY. 2021-10 2 00:00: 00 01-24 00:00 :00 No [facility] TAKE 1 TABLET DAILY. 2021-10 00:00: 00 01-24 00:00 :00 No [facility] TAKE 1 TABLET BY MOUTH DAILY 2021-10 00:00: 00 01-24 00:00 :00 No 500unit [facility] TAKE ONE (1) TABLET(S) BY MOUTH DAILY. 2021-10 00:00: 00 01-24 00:00 :00 No [facility] OMEPRAZOLE 20MG 2021-10 00:00: 00 01-24 00:00 :00 No 500 [facility] Dose Unknown 2021-10 00:00: 00 01-24 00:00 :00 No [facility] M[facility] TAKE 1 TABLET DAILY. 2021-10 00:00: 00 01-24 00:00 :00 No 5 [facility] M[facility] TAKE 1 TABLET TWICE DAILY WITH FOOD. 2021-10 00:00: 00 01-24 00:00 :00 No 500 [facility] TAKE 1 TABLET DAILY. 2021-10 00:00: 00 01-24 00:00 :00 No 10 [facility] TAKE 1 TABLET BY MOUTH DAILY 2021-10 00:00: 00 01-24 00:00 :00 No 20 [facility] TAKE 1 TABLET BY MOUTH DAILY DIRECTED 2021-10 00:00: 00 01-24 00:00 :00 No 10 [facility] TAKE 1 TABLET DAILY. 2021-10 00:00: 00 01-24 00:00 :00 No 75 [facility] TAKE 1 TABLET DAILY. 2021-10 00:00: 00 01-24 00:00 :00 No 10 [facility] TAKE 1 TABLET DAILY. 815 00:00: 00 Yes [facility] TAKE ONE (1) TABLET(S) BY MOUTH DAILY. 06-13 00:00: 00 Yes 75 [facility] TAKE ONE (1) TABLET(S) BY MOUTH DAILY. 8 00:00: 00 No 75 TAKE 1 TABLET DAILY. 06-13 00:00: 00 No 5 TAKE ONE (1) TABLET(S) BY MOUTH DAILY. 06-13 00:00: 00 No 75 TAKE 1 TABLET DAILY. 06-13 00:00: 00 No 5 TAKE ONE (1) TABLET(S) BY MOUTH DAILY. 06-13 00:00: 00 No 75 TAKE 1 TABLET DAILY. 06-13 00:00: 00 No 5 &lt 2022-0 7 00:00: 00 Yes 500 [facility] &lt 2-0 7 00:00: 00 No 500 &lt 2022-0 7 00:00: 00 No 500 &lt 2022-0 7 00:00: 00 No 500 &lt 2022-0 7 00:00: 00 No 500 Dose Unknown 2-0 05-24 00:00: 00 Yes 20 [facility] &lt 2-0 7 00:00: 00 Yes 75 [facility] Dose Unknown 2021-0 7 00:00: 00 No 20 &lt 2022-0 7 00:00: 00 No 75 Dose Unknown 2-0 7 00:00: 00 No 20 &lt 2022-0 7 00:00: 00 No 75 Dose Unknown 2-0 7 00:00: 00 No 20 &lt 2022-0 7 00:00: 00 No 75 Dose Unknown 2-0 7 00:00: 00 No 20 &lt 2022-0 7 00:00: 00 No 75 Dose Unknown 2-0 7 00:00: 00 Yes [facility] TAKE ONE (1) TABLET(S) BY MOUTH DAILY. 0 05-21 00:00: 00 Yes 75 [facility] &lt 05-21 00:00: 00 Yes 20 [facility] triamcinolo ne acetonide 0.1 % topical cream 05-21 00:00: 00 No 1% TAKE ONE (1) TABLET(S) BY MOUTH DAILY. 05-21 00:00: 00 No 75 &lt 0 05-21 00:00: 00 No 20 Dose Unknown 05-21 00:00: 00 No TAKE ONE (1) TABLET(S) BY MOUTH DAILY. 05-21 00:00: 00 No 75 &lt 0 05-21 00:00: 00 No 20 Dose Unknown 05-21 00:00: 00 No TAKE ONE (1) TABLET(S) BY MOUTH DAILY. 05-21 00:00: 00 No 75 &lt 0 05-21 00:00: 00 No 20 triamcinolo ne acetonide 0.1 % topical cream 05-21 00:00: 00 No 1% TAKE ONE (1) TABLET(S) BY MOUTH DAILY. 05-21 00:00: 00 No 75 &lt 0 05-21 00:00: 00 No 20 meloxicam 7.5 mg tablet 03-09 00:00: 00 Yes 1mg [facility] meloxicam 7.5 mg tablet 03-09 00:00: 00 No 1mg meloxicam 7.5 mg tablet 0 03-09 00:00: 00 No 1mg meloxicam 7.5 mg tablet 0 03-09 00:00: 00 No 1mg meloxicam 7.5 mg tablet 0 03-09 00:00: 00 No 1mg TAKE 1 TABLET BY MOUTH DAILY 03-01 00:00: 00 Yes 500unit [facility] TAKE 1 TABLET DAILY. 03-01 00:00: 00 Yes [facility] Dose Unknown 03-01 00:00: 00 Yes [facility] Dose Unknown 03-01 00:00: 00 Yes 10 [facility] Dose Unknown 03-01 00:00: 00 Yes 500 [facility] Dose Unknown 0 03-01 00:00: 00 Yes [facility] Dose Unknown 0 - 00:00: 00 Yes [facility] Dose Unknown 0 03-01 00:00: 00 Yes [facility] rosuvastati n 5 mg tablet 0 - 00:00: 00 No 1mg oxybutynin chloride ER 10 mg tablet,exte nded release 24 hr 0 - 00:00: 00 No 1mg loratadine 10 mg tablet 0 - 00:00: 00 No 1mg omeprazole 20 mg tablet,courtney yed release 0 - 00:00: 00 No 1mg lisinopril 10 mg tablet 0 - 00:00: 00 No 1mg metformin 500 mg tablet 0 - 00:00: 00 No 1mg Dose Unknown 0 - 00:00: 00 No Dose Unknown 0 03-01 00:00: 00 No rosuvastati n 5 mg tablet 0 - 00:00: 00 No 1mg oxybutynin chloride ER 10 mg tablet,exte nded release 24 hr 2021-0 - 00:00: 00 No 1mg loratadine 10 mg tablet 0 - 00:00: 00 No 1mg omeprazole 20 mg tablet,courtney yed release 0 - 00:00: 00 No 1mg lisinopril 10 mg tablet 2021-0 - 00:00: 00 No 1mg metformin 500 mg tablet 2021-0 - 00:00: 00 No 1mg Dose Unknown 2021-0 - 00:00: 00 No Dose Unknown 2021-0 5- 00:00: 00 No rosuvastati n 5 mg tablet 2021-0 - 00:00: 00 No 1mg oxybutynin chloride ER 10 mg tablet,exte nded release 24 hr 2021-0 5- 00:00: 00 No 1mg loratadine 10 mg tablet 2021-0 5- 00:00: 00 No 1mg omeprazole 20 mg tablet,courtney yed release [id number] 00:00: 00 No 1mg lisinopril 10 mg tablet 03-01 00:00: 00 No 1mg metformin 500 mg tablet 03-01 00:00: 00 No 1mg Dose Unknown 03-01 00:00: 00 No Dose Unknown 03-01 00:00: 00 No rosuvastati n 5 mg tablet 03-01 00:00: 00 No 1mg oxybutynin chloride ER 10 mg tablet,exte nded release 24 hr 03-01 00:00: 00 No 1mg loratadine 10 mg tablet 03-01 00:00: 00 No 1mg omeprazole 20 mg tablet,courtney yed release 03-01 00:00: 00 No 1mg lisinopril 10 mg tablet 03-01 00:00: 00 No 1mg metformin 500 mg tablet 03-01 00:00: 00 No 1mg Dose Unknown 03-01 00:00: 00 No Dose Unknown 03-01 00:00: 00 No Dose Unknown 12-08 00:00: 00 Yes [facility] Vitamin D3 25 mcg (1,000 unit) capsule - 00:00: 00 No 1(1,000 unit) Vitamin D3 25 mcg (1,000 unit) capsule 12-08 00:00: 00 No 1(1,000 unit) Vitamin D3 25 mcg (1,000 unit) capsule 0 - 00:00: 00 No 1(1,000 unit) Vitamin D3 25 mcg (1,000 unit) capsule 0 12-08 00:00: 00 No 1(1,000 unit) Dose Unknown 2- 00:00: 00 Yes [facility] Dose Unknown 2- 00:00: 00 Yes [facility] Dose Unknown 2- 00:00: 00 Yes 10 [facility] Dose Unknown - 00:00: 00 No oxybutynin chloride ER 10 mg tablet,exte nded release 24 hr 2- 00:00: 00 No 1mg Dose Unknown 2-08 00:00: 00 No Dose Unknown 2-08 00:00: 00 No oxybutynin chloride ER 10 mg tablet,exte nded release 24 hr 2-08 00:00: 00 No 1mg Dose Unknown 2-08 00:00: 00 No Dose Unknown 2-08 00:00: 00 No oxybutynin chloride ER 10 mg tablet,exte nded release 24 hr 2-08 00:00: 00 No 1mg Dose Unknown 2-08 00:00: 00 No Dose Unknown 2-08 00:00: 00 No oxybutynin chloride ER 10 mg tablet,exte nded release 24 hr 2- 00:00: 00 No 1mg Dose Unknown 2- 00:00: 00 No OMEPRAZOLE [address]MG [address] 2- 00:00: 00 01-24 00:00 :00 No [id number] [facility] oxybutynin chloride ER 10 mg tablet,exte nded release 24 hr 2020-10 00:00: 00 Yes 1mg [facility] oxybutynin chloride ER 10 mg tablet,exte nded release 24 hr 2020-10 00:00: 00 No 1mg oxybutynin chloride ER 10 mg tablet,exte nded release 24 hr 2020-10 00:00: 00 No 1mg oxybutynin chloride ER 10 mg tablet,exte nded release 24 hr 2020-10 00:00: 00 No 1mg oxybutynin chloride ER 10 mg tablet,exte nded release 24 hr 2020-10 00:00: 00 No 1mg Dose Unknown 2020-10 00:00: 00 Yes [facility] TAKE 1 TABLET DAILY. 2020-10 00:00: 00 Yes [facility] TAKE 1 TABLET BY MOUTH DAILY 2020-10 00:00: 00 Yes 500unit [facility] Dose Unknown 2020-10 00:00: 00 Yes [facility] rosuvastati n 5 mg tablet 2020-10 00:00: 00 Yes 1mg [facility] metformin 500 mg tablet 2020-10 00:00: 00 Yes 1mg [facility] Dose Unknown 2020-10 00:00: 00 Yes 500 [facility] triamcinolo ne acetonide 0.1 % topical cream 2020-10 00:00: 00 No 1% Dose Unknown 2020-10 00:00: 00 No lisinopril 10 mg tablet 2020-10 00:00: 00 No 1mg rosuvastati n 5 mg tablet 2020-10 00:00: 00 No 1mg omeprazole 20 mg tablet,courtney yed release 2020-10 00:00: 00 No 1mg loratadine 10 mg tablet 2020-10 00:00: 00 No 1mg metformin 500 mg tablet 2020-10 00:00: 00 No 1mg Dose Unknown 2020-10 00:00: 00 No Dose Unknown 2020-10 00:00: 00 No lisinopril 10 mg tablet 2020-10 00:00: 00 No 1mg rosuvastati n 5 mg tablet 2020-10 00:00: 00 No 1mg omeprazole 20 mg tablet,courtney yed release 2020-10 00:00: 00 No 1mg loratadine 10 mg tablet 2020-10 00:00: 00 No 1mg metformin 500 mg tablet 2020-10 00:00: 00 No 1mg triamcinolo ne acetonide 0.1 % topical cream 2020-10 00:00: 00 No 1% Dose Unknown 2020-10 00:00: 00 No lisinopril 10 mg tablet 2020-10 00:00: 00 No 1mg rosuvastati n 5 mg tablet 2020-10 00:00: 00 No 1mg omeprazole 20 mg tablet,courtney yed release 2020-10 00:00: 00 No 1mg loratadine 10 mg tablet 2020-10 00:00: 00 No 1mg metformin 500 mg tablet 2020-10 00:00: 00 No 1mg Dose Unknown 2020-10 00:00: 00 No Dose Unknown 2020-10 00:00: 00 No lisinopril 10 mg tablet 2020-10 00:00: 00 No 1mg rosuvastati n 5 mg tablet 2020-10 00:00: 00 No 1mg omeprazole 20 mg tablet,courtney yed release 2020-10 00:00: 00 No 1mg loratadine 10 mg tablet 2020-10 00:00: 00 No 1mg metformin 500 mg tablet 2020-10 00:00: 00 No 1mg triamcinolo ne acetonide 0.1 % topical cream 2020-10 00:00: 00 Yes 1% [facility] omeprazole 20 mg tablet,courtney yed release 2020-10 00:00: 00 Yes 1mg [facility] meloxicam 7.5 mg tablet 2020-10 00:00: 00 Yes 1mg [facility] lisinopril 10 mg tablet 2020-10 00:00: 00 Yes 1mg [facility] rosuvastati n 5 mg tablet 2020-10 00:00: 00 Yes 1mg [facility] metformin 500 mg tablet 2020-10 00:00: 00 Yes 1mg [facility] triamcinolo ne acetonide 0.1 % topical cream 2020-10 00:00: 00 No 1% omeprazole 20 mg tablet,courtney yed release 2020-10 00:00: 00 No 1mg meloxicam 7.5 mg tablet 2020-10 00:00: 00 No 1mg lisinopril 10 mg tablet 2020-10 00:00: 00 No 1mg rosuvastati n 5 mg tablet 2020-10 00:00: 00 No 1mg metformin 500 mg tablet 2020-10 00:00: 00 No 1mg triamcinolo ne acetonide 0.1 % topical cream 2020-10 00:00: 00 No 1% omeprazole 20 mg tablet,courtney yed release 2020-10 00:00: 00 No 1mg meloxicam 7.5 mg tablet 2020-10 00:00: 00 No 1mg lisinopril 10 mg tablet 2020-10 00:00: 00 No 1mg rosuvastati n 5 mg tablet 2020-10 00:00: 00 No 1mg triamcinolo ne acetonide 0.1 % topical cream 2020-10 00:00: 00 No 1% omeprazole 20 mg tablet,courtney yed release 2020-10 00:00: 00 No 1mg meloxicam 7.5 mg tablet 2020-10 00:00: 00 No 1mg lisinopril 10 mg tablet 2020-10 00:00: 00 No 1mg rosuvastati n 5 mg tablet 2020-10 00:00: 00 No 1mg metformin 500 mg tablet 2020-10 00:00: 00 No 1mg metformin 500 mg tablet 2020-10 00:00: 00 No 1mg triamcinolo ne acetonide 0.1 % topical cream 2020-10 00:00: 00 No 1% omeprazole 20 mg tablet,courtney yed release 2020-10 00:00: 00 No 1mg meloxicam 7.5 mg tablet 2020-10 00:00: 00 No 1mg lisinopril 10 mg tablet 2020-10 00:00: 00 No 1mg rosuvastati n 5 mg tablet 2020-10 00:00: 00 No 1mg metformin 500 mg tablet 2020-10 00:00: 00 No 1mg Dose Unknown 05-19 00:00: 00 Yes [facility] omeprazole 20 mg tablet,courtney yed release 05-19 00:00: 00 Yes 1mg [facility] meloxicam 7.5 mg tablet 05-19 00:00: 00 Yes 1mg [facility] lisinopril 10 mg tablet 05-19 00:00: 00 Yes 1mg [facility] rosuvastati n 5 mg tablet 05-19 00:00: 00 Yes 1mg [facility] metformin 500 mg tablet 05-19 00:00: 00 Yes 1mg [facility] Dose Unknown 05-19 00:00: 00 Yes 10 [facility] Dose Unknown 05-19 00:00: 00 Yes 500 [facility] diclofenac 1 % topical gel 05-19 00:00: 00 No 1% omeprazole 20 mg tablet,courtney yed release 05-19 00:00: 00 No 1mg meloxicam 7.5 mg tablet 05-19 00:00: 00 No 1mg lisinopril 10 mg tablet 05-19 00:00: 00 No 1mg rosuvastati n 5 mg tablet 05-19 00:00: 00 No 1mg oxybutynin chloride ER 5 mg tablet,exte nded release 24 hr 05-19 00:00: 00 No 1mg metformin 500 mg tablet 05-19 00:00: 00 No 1mg Lidocaine Viscous 2 % mucosal solution 05-19 00:00: 00 No 15% diclofenac 1 % topical gel 05-19 00:00: 00 No 1% omeprazole 20 mg tablet,courtney yed release 05-19 00:00: 00 No 1mg meloxicam 7.5 mg tablet 05-19 00:00: 00 No 1mg lisinopril 10 mg tablet 05-19 00:00: 00 No 1mg rosuvastati n 5 mg tablet 05-19 00:00: 00 No 1mg oxybutynin chloride ER 5 mg tablet,exte nded release 24 hr 05-19 00:00: 00 No 1mg metformin 500 mg tablet 05-19 00:00: 00 No 1mg Lidocaine Viscous 2 % mucosal solution 05-19 00:00: 00 No 15% diclofenac 1 % topical gel 05-19 00:00: 00 No 1% omeprazole 20 mg tablet,courtney yed release 05-19 00:00: 00 No 1mg meloxicam 7.5 mg tablet 05-19 00:00: 00 No 1mg lisinopril 10 mg tablet 05-19 00:00: 00 No 1mg rosuvastati n 5 mg tablet 05-19 00:00: 00 No 1mg oxybutynin chloride ER 5 mg tablet,exte nded release 24 hr 05-19 00:00: 00 No 1mg metformin 500 mg tablet 05-19 00:00: 00 No 1mg Lidocaine Viscous 2 % mucosal solution 05-19 00:00: 00 No 15% diclofenac 1 % topical gel 05-19 00:00: 00 No 1% omeprazole 20 mg tablet,courtney yed release 05-19 00:00: 00 No 1mg meloxicam 7.5 mg tablet 05-19 00:00: 00 No 1mg lisinopril 10 mg tablet 05-19 00:00: 00 No 1mg rosuvastati n 5 mg tablet 05-19 00:00: 00 No 1mg oxybutynin chloride ER 5 mg tablet,exte nded release 24 hr 05-19 00:00: 00 No 1mg metformin 500 mg tablet 05-19 00:00: 00 No 1mg Lidocaine Viscous 2 % mucosal solution 05-19 00:00: 00 No 15% levofloxaci n 250 mg tablet 03-05 00:00: 00 Yes 1mg [facility] metformin 500 mg tablet 03-05 00:00: 00 Yes 1mg [facility] levofloxaci n 250 mg tablet 03-05 00:00: 00 No 1mg metformin 500 mg tablet 03-05 00:00: 00 No 1mg levofloxaci n 250 mg tablet 03-05 00:00: 00 No 1mg metformin 500 mg tablet 03-05 00:00: 00 No 1mg levofloxaci n 250 mg tablet 03-05 00:00: 00 No 1mg metformin 500 mg tablet 03-05 00:00: 00 No 1mg levofloxaci n 250 mg tablet 03-05 00:00: 00 No 1mg metformin 500 mg tablet 03-05 00:00: 00 No 1mg rosuvastati n 5 mg tablet 03-02 00:00: 00 Yes 1mg [facility] meloxicam 7.5 mg tablet 03-02 00:00: 00 Yes 1mg [facility] lisinopril 10 mg tablet 03-02 00:00: 00 Yes 1mg [facility] omeprazole 20 mg tablet,courtney yed release 03-02 00:00: 00 Yes 1mg [facility] oxybutynin chloride ER 5 mg tablet,exte nded release 24 hr 03-02 00:00: 00 Yes 1mg [facility] metformin 500 mg tablet 03-02 00:00: 00 Yes 1mg [facility] rosuvastati n 5 mg tablet 03-02 00:00: 00 No 1mg meloxicam 7.5 mg tablet 03-02 00:00: 00 No 1mg lisinopril 10 mg tablet 03-02 00:00: 00 No 1mg rosuvastati n 5 mg tablet 03-02 00:00: 00 No 1mg omeprazole 20 mg tablet,courtney yed release 03-02 00:00: 00 No 1mg oxybutynin chloride ER 5 mg tablet,exte nded release 24 hr 03-02 00:00: 00 No 1mg metformin 500 mg tablet 03-02 00:00: 00 No 1mg meloxicam 7.5 mg tablet 03-02 00:00: 00 No 1mg lisinopril 10 mg tablet 03-02 00:00: 00 No 1mg omeprazole 20 mg tablet,courtney yed release 03-02 00:00: 00 No 1mg oxybutynin chloride ER 5 mg tablet,exte nded release 24 hr 03-02 00:00: 00 No 1mg metformin 500 mg tablet 03-02 00:00: 00 No 1mg rosuvastati n 5 mg tablet 03-02 00:00: 00 No 1mg meloxicam 7.5 mg tablet 03-02 00:00: 00 No 1mg lisinopril 10 mg tablet 03-02 00:00: 00 No 1mg omeprazole 20 mg tablet,courtney yed release 03-02 00:00: 00 No 1mg oxybutynin chloride ER 5 mg tablet,exte nded release 24 hr 03-02 00:00: 00 No 1mg metformin 500 mg tablet 03-02 00:00: 00 No 1mg rosuvastati n 5 mg tablet 03-02 00:00: 00 No 1mg meloxicam 7.5 mg tablet 03-02 00:00: 00 No 1mg lisinopril 10 mg tablet 03-02 00:00: 00 No 1mg omeprazole 20 mg tablet,courtney yed release 03-02 00:00: 00 No 1mg oxybutynin chloride ER 5 mg tablet,exte nded release 24 hr 03-02 00:00: 00 No 1mg metformin 500 mg tablet 03-02 00:00: 00 No 1mg rosuvastati n 5 mg tablet 02-02 00:00: 00 Yes 1mg Justice Mckenna Saul rosuvastati n 5 mg tablet 4- 00:00: 00 No 1mg rosuvastati n 5 mg tablet - 00:00: 00 No 1mg rosuvastati n 5 mg tablet - 00:00: 00 No 1mg rosuvastati n 5 mg tablet 4- 00:00: 00 No 1mg rosuvastati n 5 mg tablet 2-06 00:00: 00 Yes 1mg Justice F Saul rosuvastati n 5 mg tablet 2-06 00:00: 00 No 1mg rosuvastati n 5 mg tablet 2-06 00:00: 00 No 1mg rosuvastati n 5 mg tablet 2-06 00:00: 00 No 1mg rosuvastati n 5 mg tablet 2-06 00:00: 00 No 1mg meloxicam 7.5 mg tablet 2- 00:00: 00 Yes 1mg Justice Hughes lisinopril 10 mg tablet 2- 00:00: 00 Yes 1mg Justice Hughes omeprazole 20 mg tablet,courtney yed release 2- 00:00: 00 Yes 1mg Justice Hughes metformin 500 mg tablet 2- 00:00: 00 Yes 1mg Justice Hughes Dose Unknown 2- 00:00: 00 Yes 10 Justice Hughes meloxicam 7.5 mg tablet 2- 00:00: 00 No 1mg lisinopril 10 mg tablet 2- 00:00: 00 No 1mg omeprazole 20 mg tablet,courtney yed release 2- 00:00: 00 No 1mg oxybutynin chloride ER 5 mg tablet,exte nded release 24 hr 2- 00:00: 00 No 1mg metformin 500 mg tablet 2- 00:00: 00 No 1mg meloxicam 7.5 mg tablet 2- 00:00: 00 No 1mg lisinopril 10 mg tablet 2- 00:00: 00 No 1mg omeprazole 20 mg tablet,courtney yed release 2- 00:00: 00 No 1mg oxybutynin chloride ER 5 mg tablet,exte nded release 24 hr 2- 00:00: 00 No 1mg metformin 500 mg tablet 2- 00:00: 00 No 1mg meloxicam 7.5 mg tablet 2- 00:00: 00 No 1mg lisinopril 10 mg tablet 2- 00:00: 00 No 1mg omeprazole 20 mg tablet,courtney yed release 2- 00:00: 00 No 1mg oxybutynin chloride ER 5 mg tablet,exte nded release 24 hr 2- 00:00: 00 No 1mg metformin 500 mg tablet 2- 00:00: 00 No 1mg meloxicam 7.5 mg tablet 12-03 00:00: 00 No 1mg lisinopril 10 mg tablet 12-03 00:00: 00 No 1mg omeprazole 20 mg tablet,courtney yed release 12-03 00:00: 00 No 1mg oxybutynin chloride ER 5 mg tablet,exte nded release 24 hr 12-03 00:00: 00 No 1mg metformin 500 mg tablet 12-03 00:00: 00 No 1mg meloxicam 7.5 mg tablet 2019-10 00:00: 00 Yes 1mg Justice Hughes meloxicam 7.5 mg tablet 2019-10 00:00: 00 No 1mg meloxicam 7.5 mg tablet 2019-10 00:00: 00 No 1mg meloxicam 7.5 mg tablet 2019-10 00:00: 00 No 1mg meloxicam 7.5 mg tablet 2019-10 00:00: 00 No 1mg lisinopril 10 mg tablet 2019-10 00:00: 00 Yes 1mg Justice Hughes omeprazole 20 mg tablet,courtney yed release 2019-10 00:00: 00 Yes 1mg Justice Hughes metformin 500 mg tablet 2019-10 00:00: 00 Yes 1mg Justice Hughes lisinopril 10 mg tablet 2019-10 00:00: 00 No 1mg omeprazole 20 mg tablet,courtney yed release 2019-10 00:00: 00 No 1mg metformin 500 mg tablet 2019-10 00:00: 00 No 1mg lisinopril 10 mg tablet 2019-10 00:00: 00 No 1mg omeprazole 20 mg tablet,courtney yed release 2019-10 00:00: 00 No 1mg metformin 500 mg tablet 2019-10 00:00: 00 No 1mg lisinopril 10 mg tablet 2019-10 00:00: 00 No 1mg omeprazole 20 mg tablet,courtney yed release 2019-10 00:00: 00 No 1mg metformin 500 mg tablet 2019-10 00:00: 00 No 1mg lisinopril 10 mg tablet 2019-10 00:00: 00 No 1mg omeprazole 20 mg tablet,courtney yed release 2019-10 00:00: 00 No 1mg metformin 500 mg tablet 2019-10 00:00: 00 No 1mg meloxicam 7.5 mg tablet 2019-10 00:00: 00 Yes 1mg Justice Hughes meloxicam 7.5 mg tablet 2019-10 00:00: 00 No 1mg meloxicam 7.5 mg tablet 2019-10 00:00: 00 No 1mg meloxicam 7.5 mg tablet 2019-10 00:00: 00 No 1mg meloxicam 7.5 mg tablet 2019-10 00:00: 00 No 1mg oxybutynin chloride ER 5 mg tablet,exte nded release 24 hr 2019-10 00:00: 00 Yes 1mg Justice Hughes oxybutynin chloride ER 5 mg tablet,exte nded release 24 hr 2019-10 00:00: 00 No 1mg oxybutynin chloride ER 5 mg tablet,exte nded release 24 hr 2019-10 00:00: 00 No 1mg oxybutynin chloride ER 5 mg tablet,exte nded release 24 hr 2019-10 00:00: 00 No 1mg oxybutynin chloride ER 5 mg tablet,exte nded release 24 hr 2019-10 00:00: 00 No 1mg diclofenac 3 % topical gel 06-11 00:00: 00 Yes 1% Justice Hughes lisinopril 10 mg tablet 06-11 00:00: 00 Yes 1mg Justice Hughes omeprazole 20 mg tablet,courtney yed release 06-11 00:00: 00 Yes 1mg Justice Hughes meloxicam 7.5 mg tablet 06-11 00:00: 00 Yes 1mg Justice Hughes metformin 500 mg tablet 06-11 00:00: 00 Yes 1mg Justice Hughes meloxicam 7.5 mg tablet 06-11 00:00: 00 No 1mg metformin 500 mg tablet 06-11 00:00: 00 No 1mg diclofenac 3 % topical gel 06-11 00:00: 00 No 1% lisinopril 10 mg tablet 06-11 00:00: 00 No 1mg omeprazole 20 mg tablet,courtney yed release 06-11 00:00: 00 No 1mg meloxicam 7.5 mg tablet 8 00:00: 00 No 1mg metformin 500 mg tablet 8 00:00: 00 No 1mg diclofenac 3 % topical gel 06-11 00:00: 00 No 1% lisinopril 10 mg tablet 06-11 00:00: 00 No 1mg omeprazole 20 mg tablet,courtney yed release 06-11 00:00: 00 No 1mg meloxicam 7.5 mg tablet 06-11 00:00: 00 No 1mg metformin 500 mg tablet 06-11 00:00: 00 No 1mg diclofenac 3 % topical gel 06-11 00:00: 00 No 1% lisinopril 10 mg tablet 06-11 00:00: 00 No 1mg omeprazole 20 mg tablet,courtney yed release 06-11 00:00: 00 No 1mg meloxicam 7.5 mg tablet 06-11 00:00: 00 No 1mg metformin 500 mg tablet 06-11 00:00: 00 No 1mg diclofenac 3 % topical gel 06-11 00:00: 00 No 1% lisinopril 10 mg tablet 06-11 00:00: 00 No 1mg omeprazole 20 mg tablet,courtney yed release 06-11 00:00: 00 No 1mg metformin 500 mg tablet 2018-10 00:00: 00 No 1mg omeprazole 20 mg tablet,courtney yed release 2018-10 00:00: 00 No 1mg metformin 500 mg tablet 2018-10 00:00: 00 No 1mg benzonatate 200 mg capsule 2018-10 2 00:00: 00 No 1mg Bromfed DM 2 mg-30 mg-10 mg/5 mL oral syrup 2018-10 00:00: 00 No 10mg/5 mL benzonatate 200 mg capsule 2018-10 00:00: 00 No 1mg Bromfed DM 2 mg-30 mg-10 mg/5 mL oral syrup 2018-10 00:00: 00 No 10mg/5 mL omeprazole 20 mg tablet,courtney yed release 2018-10 00:00: 00 No 1mg metformin 500 mg tablet 2018-10 00:00: 00 No 1mg benzonatate 200 mg capsule 2018-10 00:00: 00 No 1mg Bromfed DM 2 mg-30 mg-10 mg/5 mL oral syrup 2018-10 00:00: 00 No 10mg/5 mL omeprazole 20 mg tablet,courtney yed release 2018-10 00:00: 00 Yes 1mg Justice Hughes metformin 500 mg tablet 2018-10 00:00: 00 Yes 1mg Justice Hughes benzonatate 200 mg capsule 2018-10 00:00: 00 Yes 1mg Justice Hughes Bromfed DM 2 mg-30 mg-10 mg/5 mL oral syrup 2018-10 00:00: 00 Yes 10mg/5 mL Justice Hughes omeprazole 20 mg tablet,courtney yed release 2018-10 00:00: 00 No 1mg metformin 500 mg tablet 2018-10 00:00: 00 No 1mg benzonatate 200 mg capsule 2018-10 00:00: 00 No 1mg Bromfed DM 2 mg-30 mg-10 mg/5 mL oral syrup 2018-10 00:00: 00 No 10mg/5 mL omeprazole 20 mg tablet,courtney yed release 2018-10 00:00: 00 No 1mg Immunizations Ordered Immunization Name Filled Immunization Name Date Status Comments Source SHINGRIX VACCINE 2022-06-13 00:00:00 Completed SHINGRIX VACCINE 2022-06-13 00:00:00 Completed SHINGRIX VACCINE 2022-06-13 00:00:00 Completed SHINGRIX VACCINE SHINGRIX VACCINE 2022-06-13 00:00:00 Completed Justice Hughes Shingles IM (Shingrix) 2022-06-13 00:00:00 Completed Glo Seybold - External Shingles IM (Shingrix) 2022-06-13 00:00:00 Completed Glo Seybold - External Shingles IM (Shingrix) 2022-06-13 00:00:00 Completed Glo Seybold - External Shingles IM (Shingrix) 2022-06-13 00:00:00 Completed Glo Seybold - External Shingles IM (Shingrix) 2022-06-13 00:00:00 Completed Glo Seybold - External SHINGRIX VACCINE 2021-12-07 00:00:00 Completed Tdap 2021-12-07 00:00:00 Completed pneumococcal polysacchar 2021-12-07 00:00:00 Completed SHINGRIX VACCINE 2021-12-07 00:00:00 Completed Tdap 2021-12-07 00:00:00 Completed pneumococcal polysacchar 2021-12-07 00:00:00 Completed SHINGRIX VACCINE 2021-12-07 00:00:00 Completed Tdap 2021-12-07 00:00:00 Completed pneumococcal polysacchar 2021-12-07 00:00:00 Completed SHINGRIX VACCINE 2021-12-07 00:00:00 Completed Tdap 2021-12-07 00:00:00 Completed pneumococcal polysacchar 2021-12-07 00:00:00 Completed SHINGRIX VACCINE SHINGRIX VACCINE 2021-12-07 00:00:00 Completed Justice Hughes Tdap Tdap 2021-12-07 00:00:00 Completed Justice Hughes pneumococcal polysacchar pneumococcal polysacchar 2021-12-07 00:00:00 Completed Justice Hughes Pneumococcal Vaccine, Polysaccharide 2021-12-07 00:00:00 Completed Glo Seybold - External Shingles IM (Shingrix) 2021-12-07 00:00:00 Completed Glo Seybold - External Tdap- (Boostrix, Adacel) 2021-12-07 00:00:00 Completed Glo Seybold - External Pneumococcal Vaccine, Polysaccharide 2021-12-07 00:00:00 Completed Glo Seybold - External Shingles IM (Shingrix) 2021-12-07 00:00:00 Completed Glo Seybold - External Tdap- (Boostrix, Adacel) 2021-12-07 00:00:00 Completed Glo Seybold - External Pneumococcal Vaccine, Polysaccharide 2021-12-07 00:00:00 Completed Glo Seybold - External Shingles IM (Shingrix) 2021-12-07 00:00:00 Completed Glo Seybold - External Tdap- (Boostrix, Adacel) 2021-12-07 00:00:00 Completed Glo Seybold - External Pneumococcal Vaccine, Polysaccharide 2021-12-07 00:00:00 Completed Glo Seybold - External Shingles IM (Shingrix) 2021-12-07 00:00:00 Completed Glo Seybold - External Tdap- (Boostrix, Adacel) 2021-12-07 00:00:00 Completed Glo Seybold - External Pneumococcal Vaccine, Polysaccharide 2021-12-07 00:00:00 Completed Glo Seybold - External Shingles IM (Shingrix) 2021-12-07 00:00:00 Completed Glo Seybold - External Tdap- (Boostrix, Adacel) 2021-12-07 00:00:00 Completed Glo Fajardoybold - External Moderna COVID-19 Vaccine 2021-11-08 00:00:00 Completed Moderna COVID-19 Vaccine 2021-11-08 00:00:00 Completed Moderna COVID-19 Vaccine 2021-11-08 00:00:00 Completed Moderna COVID-19 Vaccine 2021-11-08 00:00:00 Completed Moderna COVID-19 Vaccine Moderna COVID-19 Vaccine 2021-11-08 00:00:00 Completed Justice Hughes Covid-19 Vaccine Moderna (Spikevax), Mrna-lnp, Earle Protein, Pf 2021-11-08 00:00:00 Completed Glo Fajardoybold - External Covid-19 Vaccine Moderna (Spikevax), Mrna-lnp, Earle Protein, Pf 2021-11-08 00:00:00 Completed Glo Seybold - External Covid-19 Vaccine Moderna (Spikevax), Mrna-lnp, Earle Protein, Pf 2021-11-08 00:00:00 Completed Glo Seybold - External Covid-19 Vaccine Moderna (Spikevax), Mrna-lnp, Earle Protein, Pf 2021-11-08 00:00:00 Completed Glo Fajardoybold - External Covid-19 Vaccine Moderna (Spikevax), Mrna-lnp, Earle Protein, Pf 2021-11-08 00:00:00 Completed Glo Seybold - External Influenza, seasonal, inj 2021-09-01 00:00:00 Completed Influenza, seasonal, inj 2021-09-01 00:00:00 Completed Influenza, seasonal, inj 2021-09-01 00:00:00 Completed Influenza, seasonal, inj 2021-09-01 00:00:00 Completed Influenza, seasonal, inj Influenza, seasonal, inj 2021-09-01 00:00:00 Completed Justice Hughes Influenza, Seasonal, Injectable 2021-09-01 00:00:00 Completed Glo Seybold - External Influenza, Seasonal, Injectable 2021-09-01 00:00:00 Completed Glo Seybold - External Influenza, Seasonal, Injectable 2021-09-01 00:00:00 Completed Glo Seybold - External Influenza, Seasonal, Injectable 2021-09-01 00:00:00 Completed Glo Seybold - External Influenza, Seasonal, Injectable 2021-09-01 00:00:00 Completed Glo Seybold - External Moderna COVID-19 Vaccine 2021-01-05 00:00:00 Completed Moderna COVID-19 Vaccine 2021-01-05 00:00:00 Completed Moderna COVID-19 Vaccine 2021-01-05 00:00:00 Completed Moderna COVID-19 Vaccine 2021-01-05 00:00:00 Completed Moderna COVID-19 Vaccine Moderna COVID-19 Vaccine 2021-01-05 00:00:00 Completed Justice Hughes Covid-19 Vaccine Moderna (Spikevax), Mrna-lnp, Earle Protein, Pf 2021-01-05 00:00:00 Completed Glo Fajardoybold - External Covid-19 Vaccine Moderna (Spikevax), Mrna-lnp, Earle Protein, Pf 2021-01-05 00:00:00 Completed Glo Fajardoybold - External Covid-19 Vaccine Moderna (Spikevax), Mrna-lnp, Earle Protein, Pf 2021-01-05 00:00:00 Completed Glo Seybold - External Covid-19 Vaccine Moderna (Spikevax), Mrna-lnp, Earle Protein, Pf 2021-01-05 00:00:00 Completed Glo Seybold - External Covid-19 Vaccine Moderna (Spikevax), Mrna-lnp, Earle Protein, Pf 2021-01-05 00:00:00 Completed Glo Seybold - External influenza, injectable 2020-09-07 00:00:00 Completed influenza, injectable 2020-09-07 00:00:00 Completed influenza, injectable 2020-09-07 00:00:00 Completed influenza, injectable 2020-09-07 00:00:00 Completed influenza, injectable influenza, injectable 2020-09-07 00:00:00 Completed Justice Hughes Influenza Virus Vaccine, No Preserv, age 6 months and up 2020-09-07 00:00:00 Completed Glo Seybold - External Influenza Virus Vaccine, No Preserv, age 6 months and up 2020-09-07 00:00:00 Completed Glo Seybold - External Influenza Virus Vaccine, No Preserv, age 6 months and up 2020-09-07 00:00:00 Completed Glo Seybold - External Influenza Virus Vaccine, No Preserv, age 6 months and up 2020-09-07 00:00:00 Completed Glo Seybold - External Influenza Virus Vaccine, No Preserv, age 6 months and up 2020-09-07 00:00:00 Completed Glo Seybold - External Influenza, seasonal, inj 2019-10-09 00:00:00 Completed Influenza, seasonal, inj 2019-10-09 00:00:00 Completed Influenza, seasonal, inj 2019-10-09 00:00:00 Completed Influenza, seasonal, inj 2019-10-09 00:00:00 Completed Influenza, seasonal, inj Influenza, seasonal, inj 2019-10-09 00:00:00 Completed Justice Hughes Influenza, Seasonal, Injectable 2019-10-09 00:00:00 Completed Glo Seybold - External Influenza, Seasonal, Injectable 2019-10-09 00:00:00 Completed Glo Seybold - External Influenza, Seasonal, Injectable 2019-10-09 00:00:00 Completed Glo Seybold - External Influenza, Seasonal, Injectable 2019-10-09 00:00:00 Completed Glo Jjold - External Influenza, Seasonal, Injectable 2019-10-09 00:00:00 Completed Glo Fajardotorykeith - External Influenza Virus Vaccine, No Preserv, age 6 months and up Unknown Completed Glo Vargas eybold - External Influenza, Seasonal, Injectable Unknown Completed Glo Fajardoybold - External Covid-19 Vaccine Moderna (Spikevax), Mrna-lnp, Earle Protein, Pf Unknown Completed Glo Jjold - External Pneumococcal Vaccine, Polysaccharide Unknown Completed Glo Jjol d - External Shingles IM (Shingrix) Unknown Completed Glo Sandhu - External Tdap- (Boostrix, Adacel) Unknown Completed Glo Jjold - External Influenza, Injectable, Mdck, Quadrivalent With Preservative Unknown Completed Glo Sandhu - External Influenza Virus Vaccine, No Preserv, age 6 months and up Unknown Completed Glo valdiviabold - External Influenza, Seasonal, Injectable Unknown Completed Glo Sandhu - External Covid-19 Vaccine Moderna (Spikevax), Mrna-lnp, Earle Protein, Pf Unknown Completed Glo Sandhu - External Pneumococcal Vaccine, Polysaccharide Unknown Completed Glo Jjol d - External Shingles IM (Shingrix) Unknown Completed Glo Sandhu - External Tdap- (Boostrix, Adacel) Unknown Completed Glo Sandhu - External Influenza, Injectable, Mdck, Quadrivalent With Preservative Unknown Completed Glo Sandhu - External Vital Signs Vital Name Observation Time Observation Value Comments S ource Systolic blood pressure 2024-02-05 13:36:00 105 mm[Hg] Glo Marie ld - External Diastolic blood pressure 2024-02-05 13:36:00 67 mm[Hg] Glo Jjo ld - External Heart rate 2024-02-05 13:36:00 76 /min Efrain Sandhu - External Body temperature 2024-02-05 13:36:00 36.83 Margie Glo ybkeith - External Respiratory rate 2024-02-05 13:36:00 15 /min Glo ybkeith - External Body height 2024-02-05 13:36:00 167.6 cm Natalie valdivia Seybkeith - External Body weight 2024-02-05 13:36:00 73.029 kg Natalie ey Seybold - External BMI 2024-02-05 13:36:00 25.99 kg/m2 Natalie ey Seybold - External Oxygen saturation in Arterial blood by Pulse oximetry 2024-02-05 13:36:00 100 /min Glo Seybo ld - External Systolic blood pressure 2023-10-06 15:59:00 123 mm[Hg] Glo Seybo ld - External Diastolic blood pressure 2023-10-06 15:59:00 61 mm[Hg] Glo Seybo ld - External Heart rate 2023-10-06 15:59:00 70 /min Kelse y Seybold - External Body temperature 2023-10-06 15:59:00 36.56 Margie Glo Seybold - External Respiratory rate 2023-10-06 15:59:00 20 /min Glo Seybold - External Body height 2023-10-06 15:59:00 167.6 cm Natalie ey Seybold - External Body weight 2023-10-06 15:59:00 73.029 kg Natalie ey Seybold - External BMI 2023-10-06 15:59:00 25.99 kg/m2 Natalie ey Seybold - External Oxygen saturation in Arterial blood by Pulse oximetry 2023-10-06 15:59:00 99 /min Glo Seybo ld - External Systolic blood pressure 2023-05-18 18:57:00 110 mm[Hg] Glo Seybo ld - External Diastolic blood pressure 2023-05-18 18:57:00 64 mm[Hg] Glo Seybo ld - External Heart rate 2023-05-18 18:57:00 73 /min Kelse y Seybold - External Respiratory rate 2023-05-18 18:57:00 18 /min Glo Seybold - External Body height 2023-05-18 18:57:00 167.6 cm Natalie ey Seybold - External Body weight 2023-05-18 18:57:00 73.392 kg Natalie ey Seybold - External BMI 2023-05-18 18:57:00 26.12 kg/m2 Natalie ey Seybold - External Systolic blood pressure 2023-05-16 13:43:00 118 mm[Hg] Glo Seybo ld - External Diastolic blood pressure 2023-05-16 13:43:00 69 mm[Hg] Glo Seybo ld - External Heart rate 2023-05-16 13:43:00 73 /min Kelse y Seybold - External Body temperature 2023-05-16 13:43:00 36.5 Margie Glo Seybold - External Respiratory rate 2023-05-16 13:43:00 14 /min Glo Seybold - External Body height 2023-05-16 13:43:00 167.6 cm Natalie ey Seybold - External Body weight 2023-05-16 13:43:00 73.029 kg Natalie ey Seybold - External BMI 2023-05-16 13:43:00 25.99 kg/m2 Natalie ey Seybold - External Oxygen saturation in Arterial blood by Pulse oximetry 2023-05-16 13:43:00 99 /min Glo Seybo ld - External Systolic blood pressure 2023-02-14 16:06:00 132 mm[Hg] Glo Seybo ld - External Diastolic blood pressure 2023-02-14 16:06:00 57 mm[Hg] Glo Seybo ld - External Heart rate 2023-02-14 16:06:00 77 /min Kelse y Seybold - External Body temperature 2023-02-14 16:06:00 36.56 Margie Glo Seybold - External Respiratory rate 2023-02-14 16:06:00 14 /min Glo Seybold - External Body height 2023-02-14 16:06:00 167.6 cm Natalie ey Seybold - External Body weight 2023-02-14 16:06:00 72.576 kg Natalie ey Seybold - External BMI 2023-02-14 16:06:00 25.82 kg/m2 Natalie ey Seybold - External Oxygen saturation in Arterial blood by Pulse oximetry 2023-02-14 16:06:00 99 /min Glo Seybo ld - External Systolic blood pressure 2023-01-17 20:50:00 118 mm[Hg] Glo Seybo ld - External Diastolic blood pressure 2023-01-17 20:50:00 59 mm[Hg] Glo Seybo ld - External Heart rate 2023-01-17 20:50:00 81 /min Efrain yarbrough Seybkeith - External Body temperature 2023-01-17 20:50:00 36.39 Margie Glo Sandhu - External Respiratory rate 2023-01-17 20:50:00 13 /min Glo Sandhu - External Body height 2023-01-17 20:50:00 167.6 cm Natalie valdivia Seybold - External Body weight 2023-01-17 20:50:00 75.297 kg Natalie valdivia Seybold - External BMI 2023-01-17 20:50:00 26.79 kg/m2 Natalie Sandhu - External Oxygen saturation in Arterial blood by Pulse oximetry 2023-01-17 20:50:00 98 /min Glo Marie ld - External BP Systolic 2024-07-29 10:28:00 153 mm[Hg] Step hen F Saul BP Diastolic 2024-07-29 10:28:00 72 mm[Hg] Lee phen F Saul Weight Measured 2024-07-29 10:28:00 157.20 pounds Justice F Saul Height Measured 2024-07-29 10:28:00 64.93 inches Justice F Saul Body Temperature 2024-07-29 10:28:00 Justice F Saul Heart Rate 2024-07-29 10:28:00 72.00 /min Lyndsey en F Saul Respiratory Rate 2024-07-29 10:28:00 18.00 /min Justice F Saul BP Systolic 2022-12-22 14:33:00 147 mm[Hg] Step hen F Saul BP Diastolic 2022-12-22 14:33:00 68 mm[Hg] Lee phen F Saul Weight Measured 2022-12-22 14:33:00 160.40 pounds Justice F Saul Height Measured 2022-12-22 14:33:00 64.93 inches Justice F Saul Body Temperature 2022-12-22 14:33:00 98.10 degrees Justice F Saul Heart Rate 2022-12-22 14:33:00 75.00 /min Lyndsey en F Saul Respiratory Rate 2022-12-22 14:33:00 Justice F Saul BP Systolic 2022-11-21 13:23:00 139 mm[Hg] Step hen F Saul BP Diastolic 2022-11-21 13:23:00 74 mm[Hg] Lee phen F Saul Weight Measured 2022-11-21 13:23:00 166.80 pounds Justice F Saul Height Measured 2022-11-21 13:23:00 64.93 inches Justice F Saul Body Temperature 2022-11-21 13:23:00 98.20 degrees Justice F Saul Heart Rate 2022-11-21 13:23:00 84.00 /min Lyndsey en F Saul Respiratory Rate 2022-11-21 13:23:00 Justice F Saul BP Systolic 2022-08-02 16:17:00 118 mm[Hg] Step hen F Saul BP Diastolic 2022-08-02 16:17:00 61 mm[Hg] Lee phen F Saul Weight Measured 2022-08-02 16:17:00 166.80 pounds Justice F Saul Height Measured 2022-08-02 16:17:00 64.93 inches Justice F Saul Body Temperature 2022-08-02 16:17:00 97.50 degrees Justice F Saul Heart Rate 2022-08-02 16:17:00 82.00 /min Lyndsey en F Saul Respiratory Rate 2022-08-02 16:17:00 20.00 /min Justice F Saul BP Systolic 2022-06-13 08:03:00 123 mm[Hg] Step hen F Saul BP Diastolic 2022-06-13 08:03:00 59 mm[Hg] Lee phen F Saul Weight Measured 2022-06-13 08:03:00 171.40 pounds Justice F Saul Height Measured 2022-06-13 08:03:00 64.93 inches Justice F Saul Body Temperature 2022-06-13 08:03:00 97.10 degrees Justice F Saul Heart Rate 2022-06-13 08:03:00 70.00 /min Lyndsey en F Saul Respiratory Rate 2022-06-13 08:03:00 Justice F Saul BP Systolic 2022-05-24 15:23:00 125 mm[Hg] Step hen F Saul BP Diastolic 2022-05-24 15:23:00 63 mm[Hg] Lee phen F Saul Weight Measured 2022-05-24 15:23:00 171.00 pounds Justice F Saul Height Measured 2022-05-24 15:23:00 64.93 inches Justice F Saul Body Temperature 2022-05-24 15:23:00 207.49 degrees Justice F Saul Heart Rate 2022-05-24 15:23:00 77.00 /min Lyndsey en F Saul Respiratory Rate 2022-05-24 15:23:00 Justice F Saul BP Systolic 2021-12-07 08:50:00 127 mm[Hg] Step hen F Saul BP Diastolic 2021-12-07 08:50:00 58 mm[Hg] Lee phen F Saul Weight Measured 2021-12-07 08:50:00 167.80 pounds Justice F Saul Height Measured 2021-12-07 08:50:00 64.93 inches Justice F Saul Body Temperature 2021-12-07 08:50:00 98.50 degrees Justice F Saul Heart Rate 2021-12-07 08:50:00 73.00 /min Lyndsey en F Saul Respiratory Rate 2021-12-07 08:50:00 21.00 /min Justice F Saul BP Systolic 2021-09-01 11:47:00 127 mm[Hg] Step hen F Saul BP Diastolic 2021-09-01 11:47:00 69 mm[Hg] Lee phen F Saul Weight Measured 2021-09-01 11:47:00 169.00 pounds Justice F Saul Height Measured 2021-09-01 11:47:00 64.93 inches Justice F Saul Body Temperature 2021-09-01 11:47:00 98.20 degrees Justice F Saul Heart Rate 2021-09-01 11:47:00 74.00 /min Lyndsey en F Saul Respiratory Rate 2021-09-01 11:47:00 18.00 /min Justice F Saul BP Systolic 2021-09-01 08:10:00 127 mm[Hg] Step hen F Saul BP Diastolic 2021-09-01 08:10:00 69 mm[Hg] Lee phen F Saul Weight Measured 2021-09-01 08:10:00 169.00 pounds Justice F Saul Height Measured 2021-09-01 08:10:00 64.96 inches Justice F Saul Body Temperature 2021-09-01 08:10:00 98.20 degrees Justice F Saul Heart Rate 2021-09-01 08:10:00 74.00 /min Lyndsey en Mckenna Hughes Respiratory Rate 2021-09-01 08:10:00 18.00 /min Justice Hughes BP Systolic 2021-08-04 16:52:00 Step hen Mckenna Hughes BP Diastolic 2021-08-04 16:52:00 Lee Hughes Weight Measured 2021-08-04 16:52:00 179.00 pounds Justice Hughes Height Measured 2021-08-04 16:52:00 64.96 inches Justice Hughes Body Temperature 2021-08-04 16:52:00 Justicesusu Hughes Heart Rate 2021-08-04 16:52:00 Lyndsey en Mckenna Hughes Respiratory Rate 2021-08-04 16:52:00 Justice Hughes BP Systolic 2021-05-19 10:49:00 112 mm[Hg] BP [...] 08:57:00 75.00 /min Respiratory Rate 2020-06-18 08:57:00 Plan of Care Planned Activity Planned Date Details Comments Source Goal Plan of Care Note [code = 46749-7] Goal Plan of Care Note [code = 27864-7] Goal Plan of Care Note [code = 55357-3] Goal Plan of Care Note [code = 69051-2] Goal Plan of Care Note [code = 08155-5] Goal Plan of Care Note [code = 38897-4] Goal Plan of Care Note [code = 09220-7] Goal Plan of Care Note [code = 68711-9] Goal Plan of Care Note [code = 89878-9] Goal Plan of Care Note [code = 85313-3] Goal Plan of Care Note [code = 12678-0] Goal Plan of Care Note [code = 48066-9] Goal Plan of Care Note [code = 58563-4] Goal Plan of Care Note [code = 48725-3] Goal Plan of Care Note [code = 52458-9] Goal Plan of Care Note [code = 35109-9] Goal Plan of Care Note [code = 87192-2] Goal Plan of Care Note [code = 20208-5] Goal Plan of Care Note [code = 70917-0] Goal Plan of Care Note [code = 02111-7] Goal Plan of Care Note [code = 40611-9] Goal Plan of Care Note [code = 96939-7] Goal Plan of Care Note [code = 41925-6] Goal Plan of Care Note [code = 99610-3] Goal Plan of Care Note [code = 10996-1] Goal Plan of Care Note [code = 39515-8] Goal Plan of Care Note [code = 88005-9] Goal Plan of Care Note [code = 84278-2] Goal Plan of Care Note [code = 04073-2] Goal Plan of Care Note [code = 22181-4] Goal Plan of Care Note [code = 84169-7] Goal Plan of Care Note [code = 99941-9] Goal Plan of Care Note [code = 72290-8] Goal Plan of Care Note [code = 78456-7] Goal Plan of Care Note [code = 93307-9] Goal Plan of Care Note [code = 19244-4] Goal Plan of Care Note [code = 43441-9] Goal Plan of Care Note [code = 97343-1] Goal Plan of Care Note [code = 59867-3] Goal Plan of Care Note [code = 00807-4] Goal Plan of Care Note [code = 38819-7] Goal Plan of Care Note [code = 12204-6] Goal Plan of Care Note [code = 40107-5] Goal Plan of Care Note [code = 65235-7] Goal Plan of Care Note [code = 04080-7] Goal Plan of Care Note [code = 69130-4] Goal Plan of Care Note [code = 18551-1] Goal Plan of Care Note [code = 13904-2] Goal Plan of Care Note [code = 62554-5] Goal Plan of Care Note [code = 81809-9] Goal Plan of Care Note [code = 74193-1] Goal Plan of Care Note [code = 77335-2] Goal Plan of Care Note [code = 63576-8] Goal Plan of Care Note [code = 54087-0] Goal Plan of Care Note [code = 48240-9] Goal Plan of Care Note [code = 80635-4] Goal Plan of Care Note [code = 45093-2] Goal Plan of Care Note [code = 77685-6] Goal Plan of Care Note [code = 11449-5] Goal Plan of Care Note [code = 50199-4] Goal Plan of Care Note [code = 60055-1] Goal Plan of Care Note [code = 85796-7] Goal Plan of Care Note [code = 70112-9] Goal Plan of Care Note [code = 44775-3] Goal Plan of Care Note [code = 85195-7] Goal Plan of Care Note [code = 67941-9] Goal Plan of Care Note [code = 56868-3] Goal Plan of Care Note [code = 38913-2] Goal Plan of Care Note [code = 06551-9] Goal Plan of Care Note [code = 85423-5] Goal Plan of Care Note [code = 62378-7] Goal Plan of Care Note [code = 35364-7] Goal Plan of Care Note [code = 88379-3] Goal Plan of Care Note [code = 33799-8] Goal Plan of Care Note [code = 30117-2] Goal Plan of Care Note [code = 94546-4] Goal Plan of Care Note [code = 10008-3] Goal Plan of Care Note [code = 24020-2] Goal Plan of Care Note [code = 74697-3] Goal Plan of Care Note [code = 22121-8] Goal Plan of Care Note [code = 37094-1] Goal Plan of Care Note [code = 29786-0] Goal Plan of Care Note [code = 83792-7] Goal Plan of Care Note [code = 27180-3] Goal Plan of Care Note [code = 18080-0] Goal Plan of Care Note [code = 91101-5] Goal Plan of Care Note [code = 09830-0] Goal Plan of Care Note [code = 52387-9] Goal Plan of Care Note [code = 69865-0] Goal Plan of Care Note [code = 28862-3] Goal Plan of Care Note [code = 30953-2] Goal Plan of Care Note [code = 23251-4] Goal Plan of Care Note [code = 98667-9] Goal Plan of Care Note [code = 35762-9] Goal Plan of Care Note [code = 88198-5] Goal Plan of Care Note [code = 89118-7] Goal Plan of Care Note [code = 34823-4] Goal Plan of Care Note [code = 36696-0] Goal Plan of Care Note [code = 65521-9] Goal Plan of Care Note [code = 94938-2] Goal Plan of Care Note [code = 74617-5] Goal Plan of Care Note [code = 99389-2] Goal Plan of Care Note [code = 00993-7] Goal Plan of Care Note [code = 25860-1] Goal Plan of Care Note [code = 13951-7] Goal Plan of Care Note [code = 75738-6] Encounters Start Date/Time End Date/Time Encounter Type Admission Type Attending Clinicians Care Facility Care Department Encounter ID Source 2024-08-14 00:00:00 2024-08-14 00:00:00 Outpatient TIBURCIO MERIDA [id number] [facility] 2024-08-08 13:43:57 2024-08-08 13:43:57 Outpatient [facility] [id number] Justice Hughes 2024-08-06 08:15:00 2024-08-06 08:15:00 Outpatient TIBURCIO MERIDA [id number] Gl[facility] 2024-07-29 10:27:51 2024-07-29 10:27:51 Outpatient SFA [facility] [id number] Justice Hughes 2024-07-29 00:00:00 2024-07-29 00:00:00 Outpatient Visit [facility] [id number] Justice Hughes 2024-07-08 00:00:00 2024-07-08 00:00:00 Outpatient TIBURCIO MERIDA [id number] [facility] 2024-07-08 00:00:00 2024-07-08 00:00:00 Outpatient TIBURCIO MERIDA [id number] [facility] 2024-07-08 00:00:00 2024-07-08 00:00:00 Outpatient TIBURCIO MERIDA [id number] [facility] 2024-06-11 00:00:00 2024-06-11 00:00:00 Outpatient PREZAS, TIBURCIO THOMASON GLO [id number] [facility] 2024-06-04 00:00:00 2024-06-04 00:00:00 Outpatient PREZAS, TIBURCIO [facility]ASON [facility]LO [id number] [facility]-20 16:00:00 2024-02-20 16:00:00 Outpatient LAB90 GLO GLO [id number] [facility] 2024-02-18 00:00:00 2024-02-18 00:00:00 Outpatient PREZAS, TIBURCIO GOL GLO [id number] [facility] 2024-02-12 00:00:00 2024-02-12 00:00:00 Outpatient PREZAS, TIBURCIO GLO THOMASON [id number] [facility] 2024-02-08 00:00:00 2024-02-08 00:00:00 Outpatient PREZAS, TIBURCIO [facility]ASON [id number] [facility] 00:00:00 2024-02-07 00:00:00 Outpatient PREZAS, TIBURCIO GLO GLO [id number] [facility] 2024-02-05 09:15:00 2024-02-05 09:15:00 Outpatient LAB90 GLO [facility]OMASON [id number] [facility] 2024-02-05 08:45:00 2024-02-05 08:45:00 Outpatient PREZAS, TIBURCIO GLO THOMASON [id number] [facility] 2024-01-31 00:00:00 2024-01-31 00:00:00 Outpatient PREZAS, TIBURCIO GLO THOMASON [id number] [facility] 2024-01-18 00:00:00 2024-01-18 00:00:00 Outpatient GINUR GLO THOMASON [id number] Gl[facility] Seybold 2023-12-06 00:00:00 2023-12-06 00:00:00 Outpatient PREZAS, TIBURCIO GLO THOMASON [id number] [facility] 2023-12-04 00:00:00 2023-12-04 00:00:00 Outpatient PREZAS, TIBURCIO THOMASON GLO [id number] [facility] 2023-10-09 00:00:00 2023-10-09 00:00:00 Outpatient PREZAS, TIBURCIO THOMASON GLO [id number] [facility] 2023-10-06 10:30:00 2023-10-06 10:30:00 Outpatient LAB90 GLO GLO [id number] [facility] 2023-10-06 10:00:00 2023-10-06 10:00:00 Outpatient PREZAS, TIBURCIO THOMASON GLO [id number] [facility] 2023-09-18 08:15:00 2023-09-18 08:15:00 Outpatient PREZAS, TIBURCIO THOMASON GLO [id number] [facility] 2023-09-04 10:45:00 2023-09-04 10:45:00 Outpatient PREZAS, TIBURCIO THOMASON GLO [id number] [facility] 2023-06-22 11:00:00 2023-06-22 11:00:00 Outpatient GLO GLO [id number] [facility] 2023-06-22 10:55:00 2023-06-22 10:55:00 Outpatient GLO GLO [id number] [facility] 2023-06-22 00:00:00 2023-06-22 00:00:00 Outpatient PREZAS, TIBURCIO THOMASON GLO [id number] [facility] 2023-06-01 00:00:00 2023-06-01 00:00:00 Outpatient PREZAS, TIBURCIO THOMASON GLO [id number] [facility] 2023-05-19 15:00:00 2023-05-19 15:00:00 Outpatient NOCK, SHAILESH THOMASON [id number] [facility] 2023-05-19 14:55:00 2023-05-19 14:55:00 Outpatient TOMOGRAPHY, CK GLO THOMASON [id number] [facility] 2023-05-18 14:15:00 2023-05-18 14:15:00 Outpatient CARMELO ACEVEDO GLO GLO [id number] [facility] 2023-05-18 12:40:00 2023-05-18 12:40:00 Outpatient GLO THOMASON [id number] [facility] 2023-05-17 00:00:00 2023-05-17 00:00:00 Outpatient PRETIBURCIO VERGARA GLO [id number] [facility] 2023-05-16 09:30:00 2023-05-16 09:30:00 Outpatient LAB90 GLO THOMASON [id number] [facility] 2023-05-16 08:45:00 2023-05-16 08:45:00 Outpatient PREZATIBURCIO Vargas GLO GLO [id number] [facility] 2023-05-16 08:15:00 2023-05-16 08:15:00 Outpatient PREZATIBURCIO Vargas GLO THOMASON [id number] [facility] 2023-02-14 11:00:00 2023-02-14 11:00:00 Outpatient PREZASTIBURCIO GLO THOMASON [id number] [facility] 2023-02-14 00:00:00 2023-02-14 00:00:00 Outpatient PREZATIBURCIO Vargas GLO THOMASON [id number] [facility] 2023 00:00:00 2023 00:00:00 Outpatient MD GLO BROWN [id number] [facility] 2023-01-18 09:55:00 2023-01-18 09:55:00 Outpatient LAB90 GLOPRICE THOMASON [id number] [facility] 2023-01-17 15:45:00 2023-01-17 15:45:00 Outpatient PREZATIBURCIO VargasPRICE THOMASON [id number] [facility] 2022-12-22 14:11:11 2022-12-22 14:11:11 Outpatient SFA [facility] [id number] [facility] 2022-12-21 14:39:11 2022-12-21 14:39:11 Outpatient SFA SFA [id number] [facility] 2022-12-12 11:01:15 2022-12-12 11:01:15 Outpatient SFA SFA [id number] 0213 [facility] 2022-12-06 08:18:29 2022-12-06 08:18:29 Outpatient SFA [facility]FA [id number] [facility] Hughes 2022-11-30 13:44:40 2022-11-30 13:44:40 Outpatient SFA SFA [id number] [facility] Hughes 2022-11-21 13:14:42 2022-11-21 13:14:42 Outpatient SFA SFA [id number] [facility] 2022-10-06 15:08:31 2022-10-06 15:08:31 Outpatient SFA SFA [id number] [facility] Hughes 2022-08-02 16:15:48 2022-08-02 16:15:48 Outpatient SFA SFA [id number] [facility] 2022-08-02 00:00:00 2022-08-02 00:00:00 Outpatient Visit [id number] 2022-07-29 09:32:39 2022-07-29 09:32:39 Outpatient SFA SFA [id number] [facility] 2022-06-13 00:00:00 2022-06-13 00:00:00 Outpatient Visit [id number] fdfa1e 2022-05-24 00:00:00 2022-05-24 00:00:00 Outpatient Visit [id number] -[id number] 2022-05-21 00:00:00 2022-05-21 00:00:00 Outpatient Visit [id number] -[id number] [id number]-[id number] Results Test Description Test Time Test Comments Results Result Co mments Source INDICATED URINE [id number] 14:17:55SPECIMEN NUMBER: [id number] CULTURE, URINE SPECIMEN NUMBER: [id number] SOURCE: URINE REPORT STATUS: FINAL ISOLATE NUMBER 1: ORGANISM: 08/01/2024 >100,000 CFU/ML GRAM NEGATIVE BACILLI IDENTIFICATION:08/02/2024 ESCHERICHIA COLI E. COLI AMOXICILLIN/CA INTERMED 16/8AMPICILLIN RESISTANT >16CEFAZOLIN SENSITIVE <=2CEFTRIAXONE SENSITIVE <=1CIPROFLOXACIN INTERMED 0.5LEVOFLOXACIN SENSITIVE <=0.5NITROFURANTOIN SENSITIVE <=32PIP/TAZOBAC SENSITIVE <=16TOBRAMYCIN SENSITIVE <=4TRIMETH/SULFA RESISTANT >2/38 NOTE: NUMBERS DISPLAYED REPRESENT MINIMUM INHIBITORY CONCENTRATION (MAXIMINO) WHICH IS EXPRESSED IN MCG/ML.MICROSCOPIC URINALYSIS,RFLX [id number] 09:10:50* Test Item Value Reference Range Interpretation Comme nts WHITE BLOOD CELLS (test code = 1513) 11-15 /HPF 0-5 A RED BLOOD CELLS (test code = 1514) 0-2 /HPF 0-2 EPITHELIAL CELLS (test code = 67251) 0-5 /HPF 0-10 BACTERIA (test code = 1515) 3+ NONE SEEN A CASTS, HYALINE (test code = 1517) NONE SEEN NONE-TRACE UNLESS OTHERWISE INDICATED, ALL TESTING PERFORMED AT [facility] [address] [place] [address] [employer] PL[employer]TER: YOBANI ORTIZ M.D. CLIA NUMBER [id number] [place]. [id number] ALBUMIN/CREATININE RATIO, URINE, [id number] 06:01:22* Test Item Value Reference Range Interpretation Comme nts CREATININE, URINE, CONC. (test code = 2072) 53.8 MG/DL NOT ESTAB ALBUMIN, URINE, RANDOM (test code = 83509) 0.2 MG/DL NOT ESTAB CALC ALBUMIN/CREAT, RND (test code = 74890) 4 MG/G <30 Note: Albumin/Creatinine ratio reference interval reflects ADA and NKF guidelines. COMPREHENSIVE METABOLIC [id number] 05:29:04* Test Item Value Reference Range Interpretation Comme nts GLUCOSE (test code = 2217) 104 MG/DL 70-99 H BUN (test code = 220) 18 MG/DL 8-23 CREATININE (test code = 2214) 0.64 MG/DL 0.60-1.30 eGFR (2020 CKD-EPI) (test co de = 89052) 99 ML/MIN/1.73 >60 CALC BUN/CREAT (test code = 2235) 28 RATIO 6-28 SODIUM (test code = 223) 142 MEQ/L 133-146 POTASSIUM (test code = 2228) 4.8 MEQ/L 3.5-5.4 CHLORIDE (test code = 2215) 102 MEQ/L 95-107 CARBON DIOXIDE (test code = 2206) 26 MEQ/L 19-31 CALCIUM (test code = 2209) 10.5 MG/DL 8.5-10.5 PROTEIN, TOTAL (test code = 222) 7.5 G/DL 6.1-8.3 ALBUMIN (test code = 2201) 4.7 G/DL 3.5-5.2 CALC GLOBULIN (test code = 2240) 2.8 G/DL 1.9-3.7 CALC A/G RATIO (test code = 2234) 1.7 RATIO 1.0-2.6 BILIRUBIN, TOTAL (test code = 2207) 0.5 MG/DL <=1.2 ALKALINE PHOSPHATASE (test code = 2204) 82 U/L 40-140 AST (test code = 2218) 20 U/L 9-40 ALT (test code = 2219) 15 U/L 5-40 LIPID [id number] 05:29:04* Test Item Value Reference Range Interpretation Comme nts CHOLESTEROL (test code = 2210) 164 MG/DL <200 TRIGLYCERIDES (test code = 2232) 58 MG/DL <150 HDL CHOLESTEROL (test code = 2220) 60 MG/DL >39 CALC LDL CHOL (test code = 2237) 90 MG/DL <100 NOTE: CALCULATED LDL IS BASED ON DAYAMI-CAMPOS METHOD WHICHINCLUDES ADJUSTABLE TRIGLYCERIDE:VLDL CHOLESTEROL RATIO.THIS FACTOR VARIES BY MEASURED TRIGLYCERIDE AND NON-HDLCHOLESTEROL CONCENTRATIONS WITH INCREASED CALCULATED LDL SEENIN HIGHER TRIGLYCERIDE OR LOWER NON-HDL SPECIMENS. FOR MOREINFORMATION, SEE CLIENT ANNOUNCEMENT AT [email or web address] RISK RATIO LDL/HDL (test code = 2238) 1.50 RATIO <3.22 HIV 1/2 4TH GEN, RFLX [id number] 05:24:08* Test Item Value Reference Range Interpretation Comme nts HIV 1/2 4TH GEN, RFLX CONF ( test code = 3514) NON-REACTIVE NON-REACTIVE HEPATITIS PANEL, [id number] 05:24:08* Test Item Value Reference Range Interpretation Comme nts HEPATITIS A IgM (test code = 61882) NON-REACTIVE NON-REACTIVE HEPATITIS B CORE IgM (test code = 4644) NON-REACTIVE NON-REACTIVE HEPATITIS B SURF AG (test code = 2739) NON-REACTIVE NON-REACTIVE HEPATITIS C ANTIBODY (test code = 4675) NON-REACTIVE NON-REACTIVE INTERPRETATION HEPATITIS A: (test code = 2552) (NOTE) Hepatitis A serology shows no evidence of acute hepatitis A. INTERPRETATION HEPATITIS B: (test code = 02175) (NOTE) Hepatitis B serology shows no evidence of acute hepatitis B andno indication of exposure to hepatitis B virus in the previous sampson eight months. INTERPRETATION HEPATITIS C: (test code = 56658) (NOTE) Hepatitis C serology shows no evidence of exposure to hepatitisC virus at this time. It can take up to 12 months after exposure tothe hepatitis C virus for antibodies to become detectable in the blood in certain patients. CBC W/AUTO DIFF WITH [id number] 03:20:56* Test Item Value Reference Range Interpretation Comme nts WBC (test code = 1001) 7.8 K/UL 3.5-11.0 RBC (test code = 1002) 4.05 M/UL 3.80-5.40 HEMOGLOBIN (test code = 1003) 11.9 G/DL 11.5-15.5 HEMATOCRIT (test code = 1004) 37.4 % 34.0-45.0 MCV (test code = 1005) 92.3 fL 80.0-99.0 MCH (test code = 1006) 29.4 PG 25.0-33.0 MCHC (test code = 1007) 31.8 G/DL 31.0-36.0 RDW (test code = 1038) 12.9 % 11.5-15.0 NEUTROPHILS (test code = 1008) 53.9 % LYMPHOCYTES (test code = 1010) 35.5 % MONOCYTES (test code = 1011) 8.8 % EOSINOPHILS (test code = 1012) 1.0 % BASOPHILS (test code = 1013) 0.5 % IMMATURE GRANULOCYTES (test code = 1036) 0.3 % NUCLEATED RBCS (test code = 1065) 0.0 /100 WBC'S See_Comment [Automated messa ge] The system which generated this result transmitted reference range: 0.0. The reference range was not used to interpret this result as normal/abnormal. PLATELET COUNT (test code = 1015) 181 K/UL 130-400 ABSOLUTE NEUTROPHILS (test code = 1066) 4.23 K/UL 1.50-7.50 ABSOLUTE LYMPHOCYTES (test code = 1067) 2.78 K/UL 1.00-4.00 ABSOLUTE MONOCYTES (test code = 1068) 0.69 K/UL 0.20-1.00 ABSOLUTE EOSINOPHILS (test code = 1040) 0.08 K/UL 0.00-0.50 ABSOLUTE BASOPHILS (test code = 1069) 0.04 K/UL 0.00-0.20 ABS IMMATURE GRANULOCYTES (test code = 1020) 0.02 K/UL 0.00-0.10 ABS NUCLEATED RBCS (test code = 93112) 0.00 K/UL 0.00-0.11 CULTURE, [id number] 08:26:19SPECIMEN NUMBER: [id number] CULTURE, URINE SPECIMEN NUMBER: [id number] SPECIMEN COMMENT: URINE SOURCE: URINE REPORT STATUS: FINAL FINAL REPORT: 12/24/2022 <10,000 CFU/ML UROGENITAL HIREN PRESENT NO COMMON PATHOGENS [facility] has important pathology staff changes effective 12/28/2022. New pathology staff will provide uninterrupted, excellent patient care and clinical consultation. See URL: [email or web address]. UNLESS OTHERWISE INDICATED, ALL TESTING PERFORMED AT [facility] [address] [place] [address] [employer]: JAYE SOTO M.D. [facility] [id number] [facility] [place]. [id number], [id number] 00:00:00* Test Item Value Reference Range Interpretation Comme nts CULTURE, URINE (test code = 30104) SPECIMEN NUMBER: [id number] Justice Andres AustinLIPID [id number] 06:46:02* Test Item Value Reference Range Interpretation Comme nts CHOLESTEROL (test code = 2210) 163 MG/DL <200 TRIGLYCERIDES (test code = 2232) 80 MG/DL <150 HDL CHOLESTEROL (test code = 2220) 48 MG/DL >39 CALC LDL CHOL (test code = 2237) 98 MG/DL <100 NOTE: CALCULATED LDL IS BASED ON DAYAMI-CAMPOS METHOD WHICHINCLUDES ADJUSTABLE TRIGLYCERIDE:VLDL CHOLESTEROL RATIO.THIS FACTOR VARIES BY MEASURED TRIGLYCERIDE AND NON-HDLCHOLESTEROL CONCENTRATIONS WITH INCREASED CALCULATED LDL SEENIN HIGHER TRIGLYCERIDE OR LOWER NON-HDL SPECIMENS. FOR MOREINFORMATION, SEE CLIENT ANNOUNCEMENT AT [email or web address] /[email or web address] RISK RATIO LDL/HDL (test code = 2238) 2.04 RATIO <3.22 COMPREHENSIVE METABOLIC [id number] 06:46:02* Test Item Value Reference Range Interpretation Comme nts GLUCOSE (test code = 2217) 114 MG/DL 70-99 H BUN (test code = 2208) 14 MG/DL 8-23 CREATININE (test code = 2214) 0.65 MG/DL 0.60-1.30 eGFR (2020 CKD-EPI) (test code = 45568) 99 ML/MIN/1.73 >60 CALC BUN/CREAT (test code = 2235) 22 RATIO 6-28 SODIUM (test code = 223) 143 MEQ/L 133-146 POTASSIUM (test code = 2228) 4.0 MEQ/L 3.5-5.4 CHLORIDE (test code = 2215) 105 MEQ/L 95-107 CARBON DIOXIDE (test code = 2206) 25 MEQ/L 19-31 CALCIUM (test code = 2209) 10.0 MG/DL 8.5-10.5 PROTEIN, TOTAL (test code = 2228) 7.7 G/DL 6.1-8.3 ALBUMIN (test code = 220) 4.6 G/DL 3.5-5.2 CALC GLOBULIN (test code = 2240) 3.1 G/DL 1.9-3.7 CALC A/G RATIO (test code = 2234) 1.5 RATIO 1.0-2.6 BILIRUBIN, TOTAL (test code = 2207) 0.2 MG/DL See_Comment [Automated me ssage] The system which generated this result transmitted reference range: <=1.2. The reference range was not used to interpret this result as normal/abnormal. ALKALINE PHOSPHATASE (test code = 2204) 82 U/L 40-140 AST (test code = 2218) 17 U/L 9-40 ALT (test code = 2219) 11 U/L 5-40 UNLESS OTHERWISE INDICATED, ALL [facility] [address] [place] [address] [employer] PL[employer]TER: JAYE SOTO M.D. [place] NUMBER [id number] [facility] [place]. [id number] HEMOGLOBIN [id number] 03:10:16* Test Item Value Reference Range Interpretation Comme nts HEMOGLOBIN A1c (test code = 41615) 6.6 % 4.2-5.6 H [employer] GUIDELINES FOR HGB A1C: PREDIABETES/INCREASED RISK . . . . . . . 5.7-6.4% DIAGNOSIS OF DIABETES . . . . . . . . . >=6.5% WITH CONFIRMATION OR APPROPRIATE SYMPTOMS NOTE: ASSAY MAY BE AFFECTED BY HEMOGLOBINOPATHIES (SICKLE CELL ANEMIA, S-C DISEASE, OTHERS) OR ARTIFICIALLY LOWERED BY DECREASED RED CELL SURVIVAL (HEMOLYTIC ANEMIAS, BLOOD LOSS, ETC.). CONSIDER ALTERNATE TESTING OR LABORATORY CONSULTATION. COMPREHENSIVE METABOLIC [id number] 00:00:00* Test Item Value Reference Range Interpretation Comme nts GLUCOSE (test code = 2217) 114 MG/DL BUN (test code = 2208) 14 MG/DL CREATININE (test code = 2214) 0.65 MG/DL eGFR (2020 CKD-EPI) (test co de = 54833) 99 ML/MIN/1.73 CALC BUN/CREAT (test code = 2235) 22 RATIO SODIUM (test code = 2231) 143 MEQ/L POTASSIUM (test code = 2228) 4.0 MEQ/L CHLORIDE (test code = 2215) 105 MEQ/L CARBON DIOXIDE (test code = 2206) 25 MEQ/L CALCIUM (test code = 2209) 10.0 MG/DL PROTEIN, TOTAL (test code = 2229) 7.7 G/DL ALBUMIN (test code = 2201) 4.6 G/DL CALC GLOBULIN (test code = 2240) 3.1 G/DL CALC A/G RATIO (test code = 2234) 1.5 RATIO BILIRUBIN, TOTAL (test code = 2207) 0.2 MG/DL ALKALINE PHOSPHATASE (test code = 2204) 82 U/L AST (test code = 2218) 17 U/L ALT (test code = 2219) 11 U/L Justice Andres AustinLIPID [id number] 00:00:00* Test Item Value Reference Range Interpretation Comme nts CHOLESTEROL (test code = 2210) 163 MG/DL TRIGLYCERIDES (test code = 2232) 80 MG/DL HDL CHOLESTEROL (test code = 2220) 48 MG/DL CALC LDL CHOL (test code = 2237) 98 MG/DL RISK RATIO LDL/HDL (test cod e = 2238) 2.04 RATIO Justice Andres AustinHEMOGLOBIN [id number] 00:00:00* Test Item Value Reference Range Interpretation Comme nts HEMOGLOBIN A1c (test code = 26327) 6.6 % Justice Andres AustinHEMOGLOBIN [id number] 11:21:58* Test Item Value Reference Range Interpretation Comme nts HEMOGLOBIN A1c (test code = 19067) 6.9 % 4.2-5.6 H [employer] GUIDELINES FOR HGB A1C: PREDIABETES/INCREASED RISK . . . . . . . 5.7-6.4% DIAGNOSIS OF DIABETES . . . . . . . . . >=6.5% WITH CONFIRMATION OR APPROPRIATE SYMPTOMS NOTE: ASSAY MAY BE AFFECTED BY HEMOGLOBINOPATHIES (SICKLE CELL ANEMIA, S-C DISEASE, OTHERS) OR ARTIFICIALLY LOWERED BY DECREASED RED CELL SURVIVAL (HEMOLYTIC ANEMIAS, BLOOD LOSS, ETC.). CONSIDER ALTERNATE TESTING OR LABORATORY CONSULTATION. UNLESS OTHERWISE INDICATED, ALL TESTING PERFORMED [facility] [address] [place] [address] GRE[employer] PLANTER: JAYE SOTO M.D. CLIA NUMBER [id number] [facility] [place]. [id number] COMPREHENSIVE METABOLIC [id number] 06:26:27* Test Item Value Reference Range Interpretation Comme nts GLUCOSE (test code = 2217) 110 MG/DL 70-99 H BUN (test code = 2208) 20 MG/DL 8-23 CREATININE (test code = 2213) 0.64 MG/DL 0.60-1.30 eGFR (2020 CKD-EPI) (test code = ) 100 ML/MIN/1.73 >60 CALC BUN/CREAT (test code = 2234) 31 RATIO 6-28 H SODIUM (test code = 2230) 142 MEQ/L 133-146 POTASSIUM (test code = 2227) 4.6 MEQ/L 3.5-5.4 CHLORIDE (test code = 2214) 104 MEQ/L 95-107 CARBON DIOXIDE (test code = 2205) 26 MEQ/L 19-31 CALCIUM (test code = 2208) 9.8 MG/DL 8.5-10.5 PROTEIN, TOTAL (test code = 2228) 7.2 G/DL 6.1-8.3 ALBUMIN (test code = 2200) 4.3 G/DL 3.5-5.2 CALC GLOBULIN (test code = 2239) 2.9 G/DL 1.9-3.7 CALC A/G RATIO (test code = 2233) 1.5 RATIO 1.0-2.6 BILIRUBIN, TOTAL (test code = 2206) 0.2 MG/DL See_Comment [Automated me ssage] The system which generated this result transmitted reference range: <=1.2. The reference range was not used to interpret this result as normal/abnormal. ALKALINE PHOSPHATASE (test code = 2203) 78 U/L 40-140 AST (test code = 2217) 16 U/L 9-40 ALT (test code = 2218) 11 U/L 5-40 LIPID [id number] 06:26:27* Test Item Value Reference Range Interpretation Comme nts CHOLESTEROL (test code = 2210) 150 MG/DL <200 TRIGLYCERIDES (test code = 223) 110 MG/DL <150 HDL CHOLESTEROL (test code = 2220) 42 MG/DL >39 CALC LDL CHOL (test code = 2236) 87 MG/DL <100 NOTE: CALCULATED LDL IS BASED ON DAYAMI-CAMPOS METHOD WHICHINCLUDES ADJUSTABLE TRIGLYCERIDE:VLDL CHOLESTEROL RATIO.THIS FACTOR VARIES BY MEASURED TRIGLYCERIDE AND NON-HDLCHOLESTEROL CONCENTRATIONS WITH INCREASED CALCULATED LDL SEENIN HIGHER TRIGLYCERIDE OR LOWER NON-HDL SPECIMENS. FOR MOREINFORMATION, SEE CLIENT ANNOUNCEMENT AT [email or web address] RISK RATIO LDL/HDL (test code = 2238) 2.07 RATIO <3.22 HEMOGLOBIN [id number] 00:00:00* Test Item Value Reference Range Interpretation Comme sujata HEMOGLOBIN A1c (test code = 18420) 6.9 % Justice HughesCOMPREHENSIVE METABOLIC [id number] 00:00:00* Test Item Value Reference Range Interpretation Comme nts GLUCOSE (test code = 2217) 110 MG/DL BUN (test code = 2208) 20 MG/DL CREATININE (test code = 2214) 0.64 MG/DL eGFR (2020 CKD-EPI) (test code = 03239) 100 ML/MIN/1.73 CALC BUN/CREAT (test code = 2235) 31 RATIO SODIUM (test code = 2231) 142 MEQ/L POTASSIUM (test code = 2228) 4.6 MEQ/L CHLORIDE (test code = 2215) 104 MEQ/L CARBON DIOXIDE (test code = 2206) 26 MEQ/L CALCIUM (test code = 2209) 9.8 MG/DL PROTEIN, TOTAL (test code = 2229) 7.2 G/DL ALBUMIN (test code = 2201) 4.3 G/DL CALC GLOBULIN (test code = 2240) 2.9 G/DL CALC A/G RATIO (test code = 2234) 1.5 RATIO BILIRUBIN, TOTAL (test code = 2207) 0.2 MG/DL ALKALINE PHOSPHATASE (test code = 2204) 78 U/L AST (test code = 2218) 16 U/L ALT (test code = 2219) 11 U/L Justice Andres AustinLIPID [id number] 00:00:00* Test Item Value Reference Range Interpretation Comme nts CHOLESTEROL (test code = 2210) 150 MG/DL TRIGLYCERIDES (test code = 2232) 110 MG/DL HDL CHOLESTEROL (test code = 2220) 42 MG/DL CALC LDL CHOL (test code = 2237) 87 MG/DL RISK RATIO LDL/HDL (test cod e = 2238) 2.07 RATIO Justice HughesCOMPREHENSIVE METABOLIC [id number] 00:00:00* Test Item Value Reference Range Interpretation Comme nts GLUCOSE (test code = 2217) 110 MG/DL BUN (test code = 2208) 20 MG/DL CREATININE (test code = 2214) 0.64 MG/DL eGFR (2020 CKD-EPI) (test code = 87605) 100 ML/MIN/1.73 CALC BUN/CREAT (test code = 2235) 31 RATIO SODIUM (test code = 2231) 142 MEQ/L POTASSIUM (test code = 2228) 4.6 MEQ/L CHLORIDE (test code = 2215) 104 MEQ/L CARBON DIOXIDE (test code = 2206) 26 MEQ/L CALCIUM (test code = 2209) 9.8 MG/DL PROTEIN, TOTAL (test code = 2229) 7.2 G/DL ALBUMIN (test code = 2201) 4.3 G/DL CALC GLOBULIN (test code = 2240) 2.9 G/DL CALC A/G RATIO (test code = 2234) 1.5 RATIO BILIRUBIN, TOTAL (test code = 2207) 0.2 MG/DL ALKALINE PHOSPHATASE (test code = 2204) 78 U/L AST (test code = 2218) 16 U/L ALT (test code = 2219) 11 U/L LIPID [id number] 00:00:00* Test Item Value Reference Range Interpretation Comme nts CHOLESTEROL (test code = 2210) 150 MG/DL TRIGLYCERIDES (test code = 2232) 110 MG/DL HDL CHOLESTEROL (test code = 2220) 42 MG/DL CALC LDL CHOL (test code = 2237) 87 MG/DL RISK RATIO LDL/HDL (test cod e = 2238) 2.07 RATIO HEMOGLOBIN [id number] 00:00:00* Test Item Value Reference Range Interpretation Comme nts HEMOGLOBIN A1c (test code = 93570) 6.9 % COMPREHENSIVE METABOLIC [id number] 00:00:00* Test Item Value Reference Range Interpretation Comme nts GLUCOSE (test code = 2217) 110 MG/DL BUN (test code = 2208) 20 MG/DL CREATININE (test code = 2214) 0.64 MG/DL eGFR (2020 CKD-EPI) (test code = 89846) 100 ML/MIN/1.73 CALC BUN/CREAT (test code = 2235) 31 RATIO SODIUM (test code = 2231) 142 MEQ/L POTASSIUM (test code = 2228) 4.6 MEQ/L CHLORIDE (test code = 2215) 104 MEQ/L CARBON DIOXIDE (test code = 2206) 26 MEQ/L CALCIUM (test code = 2209) 9.8 MG/DL PROTEIN, TOTAL (test code = 2229) 7.2 G/DL ALBUMIN (test code = 2201) 4.3 G/DL CALC GLOBULIN (test code = 2240) 2.9 G/DL CALC A/G RATIO (test code = 2234) 1.5 RATIO BILIRUBIN, TOTAL (test code = 2207) 0.2 MG/DL ALKALINE PHOSPHATASE (test code = 2204) 78 U/L AST (test code = 2218) 16 U/L ALT (test code = 2219) 11 U/L LIPID [id number] 00:00:00* Test Item Value Reference Range Interpretation Comme nts CHOLESTEROL (test code = 2210) 150 MG/DL TRIGLYCERIDES (test code = 2232) 110 MG/DL HDL CHOLESTEROL (test code = 2220) 42 MG/DL CALC LDL CHOL (test code = 2237) 87 MG/DL RISK RATIO LDL/HDL (test cod e = 2238) 2.07 RATIO HEMOGLOBIN [id number] 00:00:00* Test Item Value Reference Range Interpretation Comme [facility] HEMOGLOBIN A1c (test code = 41669) 6.9 % HEMOGLOBIN [id number] 00:00:00* Test Item Value Reference Range Interpretation Comme [facility] HEMOGLOBIN A1c (test code = 08576) 6.6 % Justice [id number] 00:00:00* Test Item Value Reference Range Interpretation Comme [facility] TSH, THIRD GENERATION (test code = 2821) 1.070 UIU/ML Justice HughesVITAMIN D, 25 [id number] 00:00:00* Test Item Value Reference Range Interpretation Comme [facility] VITAMIN D, 25 OH (test code = 4958) 25 NG/ML Justice HughesCBC W/AUTO [id number] 00:00:00* Test Item Value Reference Range Interpretation Comme sujata WBC (test code = 1001) 6.5 K/UL [...] = 1013) 0.6 % IMMATURE GRANULOCYTES (test code = 1036) 0.2 % NUCLEATED RBCS (test code = 1065) 0.0 /100WBC'S PLATELET COUNT (test code = 1015) 187 K/UL ABSOLUTE NEUTROPHILS (test c ode = 1066) 3.71 K/UL ABSOLUTE LYMPHOCYTES (test c ode = 1067) 2.18 K/UL ABSOLUTE MONOCYTES (test cod e = 1068) 0.45 K/UL ABSOLUTE EOSINOPHILS (test c ode = 1040) 0.15 K/UL ABSOLUTE BASOPHILS (test cod e = 1069) 0.04 K/UL ABS IMMATURE GRANULOCYTES (t est code = 1020) 0.01 K/UL ABS NUCLEATED RBCS (test cod e = 89369) 0.00 K/UL Justice F SaulCOMPREHENSIVE METABOLIC [id number] 00:00:00* Test Item Value Reference Range Interpretation Comme nts GLUCOSE (test code = 2217) 100 MG/DL BUN (test code = 2208) 12 MG/DL CREATININE (test code = 2214) 0.48 MG/DL eGFR (2020 CKD-EPI) (test code = 53398) 108 ML/MIN/1.73 CALC BUN/CREAT (test code = 2235) 25 RATIO SODIUM (test code = 2231) 145 MEQ/L POTASSIUM (test code = 2228) 4.2 MEQ/L CHLORIDE (test code = 2215) 105 MEQ/L CARBON DIOXIDE (test code = 2206) 29 MEQ/L CALCIUM (test code = 2209) 9.8 MG/DL PROTEIN, TOTAL (test code = 2229) 7.5 G/DL ALBUMIN (test code = 2201) 4.4 G/DL CALC GLOBULIN (test code = 2240) 3.1 G/DL CALC A/G RATIO (test code = 2234) 1.4 RATIO BILIRUBIN, TOTAL (test code = 2207) 0.3 MG/DL ALKALINE PHOSPHATASE (test code = 2204) 92 U/L AST (test code = 2218) 16 U/L ALT (test code = 2219) 14 U/L Justice HughesCOMPREHENSIVE METABOLIC [id number] 00:00:00* Test Item Value Reference Range Interpretation Comme nts GLUCOSE (test code = 2217) 100 MG/DL BUN (test code = 2208) 12 MG/DL CREATININE (test code = 2214) 0.48 MG/DL eGFR (2020 CKD-EPI) (test code = 58922) 108 ML/MIN/1.73 CALC BUN/CREAT (test code = 2235) 25 RATIO SODIUM (test code = 2231) 145 MEQ/L POTASSIUM (test code = 2228) 4.2 MEQ/L CHLORIDE (test code = 2215) 105 MEQ/L CARBON DIOXIDE (test code = 2206) 29 MEQ/L CALCIUM (test code = 2209) 9.8 MG/DL PROTEIN, TOTAL (test code = 2229) 7.5 G/DL ALBUMIN (test code = 2201) 4.4 G/DL CALC GLOBULIN (test code = 2240) 3.1 G/DL CALC A/G RATIO (test code = 2234) 1.4 RATIO BILIRUBIN, TOTAL (test code = 2207) 0.3 MG/DL ALKALINE PHOSPHATASE (test code = 2204) 92 U/L AST (test code = 2218) 16 U/L ALT (test code = 2219) 14 U/L LIPID [id number] 00:00:00* Test Item Value Reference Range Interpretation Comme nts CHOLESTEROL (test code = 2210) 164 MG/DL TRIGLYCERIDES (test code = 2232) 105 MG/DL HDL CHOLESTEROL (test code = 2220) 46 MG/DL CALC LDL CHOL (test code = 2237) 98 MG/DL RISK RATIO LDL/HDL (test cod e = 2238) 2.13 RATIO Justice HughesLIPID [id number] 00:00:00* Test Item Value Reference Range Interpretation Comme nts CHOLESTEROL (test code = 2210) 164 MG/DL TRIGLYCERIDES (test code = 2232) 105 MG/DL HDL CHOLESTEROL (test code = 2220) 46 MG/DL CALC LDL CHOL (test code = 2237) 98 MG/DL RISK RATIO LDL/HDL (test cod e = 2238) 2.13 RATIO HEMOGLOBIN [id number] 00:00:00* Test Item Value Reference Range Interpretation Comme [facility] HEMOGLOBIN A1c (test code = 96723) 6.6 % [id number] 00:00:00* Test Item Value Reference Range Interpretation Comme [facility] TSH, THIRD GENERATION (test code = 2821) 1.070 UIU/ML VITAMIN D, 25 [id number] 00:00:00* Test Item Value Reference Range Interpretation Comme [facility] VITAMIN D, 25 OH (test code = 4958) 25 NG/ML CBC W/AUTO [id number] 00:00:00* Test Item Value Reference Range Interpretation Comme nts WBC (test code = 1001) 6.5 K/UL [...] = 1013) 0.6 % IMMATURE GRANULOCYTES (test code = 1036) 0.2 % NUCLEATED RBCS (test code = 1065) 0.0 /100WBC'S PLATELET COUNT (test code = 1015) 187 K/UL ABSOLUTE NEUTROPHILS (test c ode = 1066) 3.71 K/UL ABSOLUTE LYMPHOCYTES (test c ode = 1067) 2.18 K/UL ABSOLUTE MONOCYTES (test cod e = 1068) 0.45 K/UL ABSOLUTE EOSINOPHILS (test c ode = 1040) 0.15 K/UL ABSOLUTE BASOPHILS (test cod e = 1069) 0.04 K/UL ABS IMMATURE GRANULOCYTES (t est code = 1020) 0.01 K/UL ABS NUCLEATED RBCS (test cod e = 40746) 0.00 K/UL COMPREHENSIVE METABOLIC [id number] 00:00:00* Test Item Value Reference Range Interpretation Comme nts GLUCOSE (test code = 2217) 100 MG/DL BUN (test code = 2208) 12 MG/DL CREATININE (test code = 2214) 0.48 MG/DL eGFR (2020 CKD-EPI) (test code = 24918) 108 ML/MIN/1.73 CALC BUN/CREAT (test code = 2235) 25 RATIO SODIUM (test code = 2231) 145 MEQ/L POTASSIUM (test code = 2228) 4.2 MEQ/L CHLORIDE (test code = 2215) 105 MEQ/L CARBON DIOXIDE (test code = 2206) 29 MEQ/L CALCIUM (test code = 2209) 9.8 MG/DL PROTEIN, TOTAL (test code = 2229) 7.5 G/DL ALBUMIN (test code = 2201) 4.4 G/DL CALC GLOBULIN (test code = 2240) 3.1 G/DL CALC A/G RATIO (test code = 2234) 1.4 RATIO BILIRUBIN, TOTAL (test code = 2207) 0.3 MG/DL ALKALINE PHOSPHATASE (test code = 2204) 92 U/L AST (test code = 2218) 16 U/L ALT (test code = 2219) 14 U/L LIPID [id number] 00:00:00* Test Item Value Reference Range Interpretation Comme nts CHOLESTEROL (test code = 2210) 164 MG/DL TRIGLYCERIDES (test code = 2232) 105 MG/DL HDL CHOLESTEROL (test code = 2220) 46 MG/DL CALC LDL CHOL (test code = 2237) 98 MG/DL RISK RATIO LDL/HDL (test cod e = 2238) 2.13 RATIO HEMOGLOBIN [id number] 00:00:00* Test Item Value Reference Range Interpretation Comme [facility] HEMOGLOBIN A1c (test code = 04571) 6.6 % [id number] 00:00:00* Test Item Value Reference Range Interpretation Comme [facility] TSH, THIRD GENERATION (test code = 2821) 1.070 UIU/ML VITAMIN D, 25 [id number] 00:00:00* Test Item Value Reference Range Interpretation Comme [facility] VITAMIN D, 25 OH (test code = 4958) 25 NG/ML CBC W/AUTO [id number] 00:00:00* Test Item Value Reference Range Interpretation Comme nts WBC (test code = 1001) 6.5 K/UL [...] = 1013) 0.6 % IMMATURE GRANULOCYTES (test code = 1036) 0.2 % NUCLEATED RBCS (test code = 1065) 0.0 /100WBC'S PLATELET COUNT (test code = 1015) 187 K/UL ABSOLUTE NEUTROPHILS (test c ode = 1066) 3.71 K/UL ABSOLUTE LYMPHOCYTES (test c ode = 1067) 2.18 K/UL ABSOLUTE MONOCYTES (test cod e = 1068) 0.45 K/UL ABSOLUTE EOSINOPHILS (test c ode = 1040) 0.15 K/UL ABSOLUTE BASOPHILS (test cod e = 1069) 0.04 K/UL ABS IMMATURE GRANULOCYTES (t est code = 1020) 0.01 K/UL ABS NUCLEATED RBCS (test cod e = 96588) 0.00 K/UL COMPREHENSIVE METABOLIC [id number] 00:00:00* Test Item Value Reference Range Interpretation Comme nts GLUCOSE (test code = 2217) 100 MG/DL BUN (test code = 2208) 12 MG/DL CREATININE (test code = 2214) 0.48 MG/DL eGFR (2020 CKD-EPI) (test code = 61843) 108 ML/MIN/1.73 CALC BUN/CREAT (test code = 2235) 25 RATIO SODIUM (test code = 2231) 145 MEQ/L POTASSIUM (test code = 2228) 4.2 MEQ/L CHLORIDE (test code = 2215) 105 MEQ/L CARBON DIOXIDE (test code = 2206) 29 MEQ/L CALCIUM (test code = 2209) 9.8 MG/DL PROTEIN, TOTAL (test code = 2229) 7.5 G/DL ALBUMIN (test code = 2201) 4.4 G/DL CALC GLOBULIN (test code = 2240) 3.1 G/DL CALC A/G RATIO (test code = 2234) 1.4 RATIO BILIRUBIN, TOTAL (test code = 2207) 0.3 MG/DL ALKALINE PHOSPHATASE (test code = 2204) 92 U/L AST (test code = 2218) 16 U/L ALT (test code = 2219) 14 U/L LIPID [id number] 00:00:00* Test Item Value Reference Range Interpretation Comme nts CHOLESTEROL (test code = 2210) 164 MG/DL TRIGLYCERIDES (test code = 2232) 105 MG/DL HDL CHOLESTEROL (test code = 2220) 46 MG/DL CALC LDL CHOL (test code = 2237) 98 MG/DL RISK RATIO LDL/HDL (test cod e = 2238) 2.13 RATIO HEMOGLOBIN [id number] 00:00:00* Test Item Value Reference Range Interpretation Comme nts HEMOGLOBIN A1c (test code = 98672) 6.6 % [id number] 00:00:00* Test Item Value Reference Range Interpretation Comme [facility] TSH, THIRD GENERATION (test code = 2821) 1.070 UIU/ML VITAMIN D, 25 [id number] 00:00:00* Test Item Value Reference Range Interpretation Comme nts VITAMIN D, 25 OH (test code = 4958) 25 NG/ML CBC W/AUTO [id number] 00:00:00* Test Item Value Reference Range Interpretation Comme nts WBC (test code = 1001) 6.5 K/UL [...] = 1013) 0.6 % IMMATURE GRANULOCYTES (test code = 1036) 0.2 % NUCLEATED RBCS (test code = 1065) 0.0 /100WBC'S PLATELET COUNT (test code = 1015) 187 K/UL ABSOLUTE NEUTROPHILS (test c ode = 1066) 3.71 K/UL ABSOLUTE LYMPHOCYTES (test c ode = 1067) 2.18 K/UL ABSOLUTE MONOCYTES (test cod e = 1068) 0.45 K/UL ABSOLUTE EOSINOPHILS (test c ode = 1040) 0.15 K/UL ABSOLUTE BASOPHILS (test cod e = 1069) 0.04 K/UL ABS IMMATURE GRANULOCYTES (t est code = 1020) 0.01 K/UL ABS NUCLEATED RBCS (test cod e = 66340) 0.00 K/UL COMPREHENSIVE METABOLIC [id number] 00:00:00* Test Item Value Reference Range Interpretation Comme nts GLUCOSE (test code = 2217) 100 MG/DL BUN (test code = 2208) 12 MG/DL CREATININE (test code = 2214) 0.48 MG/DL eGFR (2020 CKD-EPI) (test code = 38286) 108 ML/MIN/1.73 CALC BUN/CREAT (test code = 2235) 25 RATIO SODIUM (test code = 2231) 145 MEQ/L POTASSIUM (test code = 2228) 4.2 MEQ/L CHLORIDE (test code = 2215) 105 MEQ/L CARBON DIOXIDE (test code = 2206) 29 MEQ/L CALCIUM (test code = 2209) 9.8 MG/DL PROTEIN, TOTAL (test code = 2229) 7.5 G/DL ALBUMIN (test code = 2201) 4.4 G/DL CALC GLOBULIN (test code = 2240) 3.1 G/DL CALC A/G RATIO (test code = 2234) 1.4 RATIO BILIRUBIN, TOTAL (test code = 2207) 0.3 MG/DL ALKALINE PHOSPHATASE (test code = 2204) 92 U/L AST (test code = 2218) 16 U/L ALT (test code = 2219) 14 U/L LIPID [id number] 00:00:00* Test Item Value Reference Range Interpretation Comme nts CHOLESTEROL (test code = 2210) 164 MG/DL TRIGLYCERIDES (test code = 2232) 105 MG/DL HDL CHOLESTEROL (test code = 2220) 46 MG/DL CALC LDL CHOL (test code = 2237) 98 MG/DL RISK RATIO LDL/HDL (test cod e = 2238) 2.13 RATIO HEMOGLOBIN [id number] 00:00:00* Test Item Value Reference Range Interpretation Comme [facility] HEMOGLOBIN A1c (test code = 32822) 6.6 % [id number] 00:00:00* Test Item Value Reference Range Interpretation Comme [facility] TSH, THIRD GENERATION (test code = 2821) 1.070 UIU/ML VITAMIN D, 25 [id number] 00:00:00* Test Item Value Reference Range Interpretation Comme [facility] VITAMIN D, 25 OH (test code = 4958) 25 NG/ML CBC W/AUTO [id number] 00:00:00* Test Item Value Reference Range Interpretation Comme nts WBC (test code = 1001) 6.5 K/UL [...] = 1013) 0.6 % IMMATURE GRANULOCYTES (test code = 1036) 0.2 % NUCLEATED RBCS (test code = 1065) 0.0 /100WBC'S PLATELET COUNT (test code = 1015) 187 K/UL ABSOLUTE NEUTROPHILS (test c ode = 1066) 3.71 K/UL ABSOLUTE LYMPHOCYTES (test c ode = 1067) 2.18 K/UL ABSOLUTE MONOCYTES (test cod e = 1068) 0.45 K/UL ABSOLUTE EOSINOPHILS (test c ode = 1040) 0.15 K/UL ABSOLUTE BASOPHILS (test cod e = 1069) 0.04 K/UL ABS IMMATURE GRANULOCYTES (t est code = 1020) 0.01 K/UL ABS NUCLEATED RBCS (test cod e = 00072) 0.00 K/UL COMPREHENSIVE METABOLIC [id number] 00:00:00* Test Item Value Reference Range Interpretation Comme nts GLUCOSE (test code = 2217) 118 MG/DL BUN (test code = 2208) 22 MG/DL CREATININE (test code = 2214) 0.61 MG/DL eGFR AMER. (test cod e = 18336) 113 ML/MIN/1.73 eGFR NON- AMER. (test code = 18554) 98 ML/MIN/1.73 CALC BUN/CREAT (test code = 2235) 36 RATIO SODIUM (test code = 2231) 142 MEQ/L POTASSIUM (test code = 2228) 4.5 MEQ/L CHLORIDE (test code = 2215) 102 MEQ/L CARBON DIOXIDE (test code = 2206) 26 MEQ/L CALCIUM (test code = 2209) 10.1 MG/DL PROTEIN, TOTAL (test code = 222) 7.8 G/DL ALBUMIN (test code = 2201) 4.7 G/DL CALC GLOBULIN (test code = 2240) 3.1 G/DL CALC A/G RATIO (test code = 2234) 1.5 RATIO BILIRUBIN, TOTAL (test code = 2207) 0.3 MG/DL ALKALINE PHOSPHATASE (test code = 2204) 90 U/L AST (test code = 2218) 19 U/L ALT (test code = 2219) 14 U/L Justice Andres AustinHEMOGLOBIN [id number] 00:00:00* Test Item Value Reference Range Interpretation Comme nts HEMOGLOBIN A1c (test code = 78618) 7.3 % Justice Andres AustinLIPID [id number] 00:00:00* Test Item Value Reference Range Interpretation Comme nts CHOLESTEROL (test code = 2210) 158 MG/DL TRIGLYCERIDES (test code = 2232) 62 MG/DL HDL CHOLESTEROL (test code = 2220) 47 MG/DL CALC LDL CHOL (test code = 2237) 97 MG/DL RISK RATIO LDL/HDL (test cod e = 2238) 2.06 RATIO Justice Andres AustinHEMOGLOBIN [id number] 00:00:00* Test Item Value Reference Range Interpretation Comme nts HEMOGLOBIN A1c (test code = 87235) 7.3 % LIPID [id number] 00:00:00* Test Item Value Reference Range Interpretation Comme nts CHOLESTEROL (test code = 2210) 158 MG/DL TRIGLYCERIDES (test code = 2232) 62 MG/DL HDL CHOLESTEROL (test code = 2220) 47 MG/DL CALC LDL CHOL (test code = 2237) 97 MG/DL RISK RATIO LDL/HDL (test cod e = 2238) 2.06 RATIO COMPREHENSIVE METABOLIC [id number] 00:00:00* Test Item Value Reference Range Interpretation Comme nts GLUCOSE (test code = 2217) 118 MG/DL BUN (test code = 2208) 22 MG/DL CREATININE (test code = 2214) 0.61 MG/DL eGFR AMER. (test cod e = 61371) 113 ML/MIN/1.73 eGFR NON- AMER. (test code = 78946) 98 ML/MIN/1.73 CALC BUN/CREAT (test code = 2235) 36 RATIO SODIUM (test code = 2231) 142 MEQ/L POTASSIUM (test code = 2228) 4.5 MEQ/L CHLORIDE (test code = 2215) 102 MEQ/L CARBON DIOXIDE (test code = 2206) 26 MEQ/L CALCIUM (test code = 2209) 10.1 MG/DL PROTEIN, TOTAL (test code = 2229) 7.8 G/DL ALBUMIN (test code = 2201) 4.7 G/DL CALC GLOBULIN (test code = 2240) 3.1 G/DL CALC A/G RATIO (test code = 2234) 1.5 RATIO BILIRUBIN, TOTAL (test code = 2207) 0.3 MG/DL ALKALINE PHOSPHATASE (test code = 2204) 90 U/L AST (test code = 2218) 19 U/L ALT (test code = 2219) 14 U/L HEMOGLOBIN [id number] 00:00:00* Test Item Value Reference Range Interpretation Comme nts HEMOGLOBIN A1c (test code = 76343) 7.3 % LIPID [id number] 00:00:00* Test Item Value Reference Range Interpretation Comme nts CHOLESTEROL (test code = 2210) 158 MG/DL TRIGLYCERIDES (test code = 2232) 62 MG/DL HDL CHOLESTEROL (test code = 2220) 47 MG/DL CALC LDL CHOL (test code = 2237) 97 MG/DL RISK RATIO LDL/HDL (test cod e = 2238) 2.06 RATIO COMPREHENSIVE METABOLIC [id number] 00:00:00* Test Item Value Reference Range Interpretation Comme nts GLUCOSE (test code = 221) 118 MG/DL BUN (test code = 2208) 22 MG/DL CREATININE (test code = 2214) 0.61 MG/DL eGFR AMER. (test cod e = 03731) 113 ML/MIN/1.73 eGFR NON- AMER. (test code = 34176) 98 ML/MIN/1.73 CALC BUN/CREAT (test code = 2235) 36 RATIO SODIUM (test code = 2231) 142 MEQ/L POTASSIUM (test code = 2228) 4.5 MEQ/L CHLORIDE (test code = 2215) 102 MEQ/L CARBON DIOXIDE (test code = 2206) 26 MEQ/L CALCIUM (test code = 2209) 10.1 MG/DL PROTEIN, TOTAL (test code = 222) 7.8 G/DL ALBUMIN (test code = 2201) 4.7 G/DL CALC GLOBULIN (test code = 2240) 3.1 G/DL CALC A/G RATIO (test code = 2234) 1.5 RATIO BILIRUBIN, TOTAL (test code = 2206) 0.3 MG/DL ALKALINE PHOSPHATASE (test code = 2204) 90 U/L AST (test code = 2218) 19 U/L ALT (test code = 2219) 14 U/L HEMOGLOBIN [id number] 00:00:00* Test Item Value Reference Range Interpretation Comme nts HEMOGLOBIN A1c (test code = 12849) 7.3 % LIPID [id number] 00:00:00* Test Item Value Reference Range Interpretation Comme nts CHOLESTEROL (test code = 2210) 158 MG/DL TRIGLYCERIDES (test code = 2232) 62 MG/DL HDL CHOLESTEROL (test code = 2220) 47 MG/DL CALC LDL CHOL (test code = 2237) 97 MG/DL RISK RATIO LDL/HDL (test cod e = 2238) 2.06 RATIO COMPREHENSIVE METABOLIC [id number] 00:00:00* Test Item Value Reference Range Interpretation Comme nts GLUCOSE (test code = 2217) 118 MG/DL BUN (test code = 2207) 22 MG/DL CREATININE (test code = 2214) 0.61 MG/DL eGFR AMER. (test cod e = 99551) 113 ML/MIN/1.73 eGFR NON- AMER. (test code = 22585) 98 ML/MIN/1.73 CALC BUN/CREAT (test code = 2235) 36 RATIO SODIUM (test code = 2231) 142 MEQ/L POTASSIUM (test code = 2228) 4.5 MEQ/L CHLORIDE (test code = 2215) 102 MEQ/L CARBON DIOXIDE (test code = 2206) 26 MEQ/L CALCIUM (test code = 2209) 10.1 MG/DL PROTEIN, TOTAL (test code = 2229) 7.8 G/DL ALBUMIN (test code = 2201) 4.7 G/DL CALC GLOBULIN (test code = 2240) 3.1 G/DL CALC A/G RATIO (test code = 2234) 1.5 RATIO BILIRUBIN, TOTAL (test code = 2207) 0.3 MG/DL ALKALINE PHOSPHATASE (test code = 2204) 90 U/L AST (test code = 2218) 19 U/L ALT (test code = 2219) 14 U/L HEMOGLOBIN [id number] 00:00:00* Test Item Value Reference Range Interpretation Comme nts HEMOGLOBIN A1c (test code = 88538) 7.3 % LIPID [id number] 00:00:00* Test Item Value Reference Range Interpretation Comme nts CHOLESTEROL (test code = 2210) 158 MG/DL TRIGLYCERIDES (test code = 2232) 62 MG/DL HDL CHOLESTEROL (test code = 2220) 47 MG/DL CALC LDL CHOL (test code = 2237) 97 MG/DL RISK RATIO LDL/HDL (test cod e = 2238) 2.06 RATIO COMPREHENSIVE METABOLIC [id number] 00:00:00* Test Item Value Reference Range Interpretation Comme nts GLUCOSE (test code = 2217) 118 MG/DL BUN (test code = 8) 22 MG/DL CREATININE (test code = 2214) 0.61 MG/DL eGFR AMER. (test cod e = 69591) 113 ML/MIN/1.73 eGFR NON- AMER. (test code = 11483) 98 ML/MIN/1.73 CALC BUN/CREAT (test code = 2235) 36 RATIO SODIUM (test code = 2231) 142 MEQ/L POTASSIUM (test code = 2228) 4.5 MEQ/L CHLORIDE (test code = 2215) 102 MEQ/L CARBON DIOXIDE (test code = 2206) 26 MEQ/L CALCIUM (test code = 2209) 10.1 MG/DL PROTEIN, TOTAL (test code = 2229) 7.8 G/DL ALBUMIN (test code = 2201) 4.7 G/DL CALC GLOBULIN (test code = 2240) 3.1 G/DL CALC A/G RATIO (test code = 2234) 1.5 RATIO BILIRUBIN, TOTAL (test code = 2207) 0.3 MG/DL ALKALINE PHOSPHATASE (test code = 2204) 90 U/L AST (test code = 2218) 19 U/L ALT (test code = 2219) 14 U/L SARS-CoV-2 (COVID-19) by RT-PCR (HIGH RISK)2021-08-06 00:00:00* Test Item Value Reference Range Interpretation Comme nts SARS-CoV-2 INTERPRETATION (t est code = 25905) NEGATIVE SOURCE (test code = 96378) NOT SPECIFIED Justice JosephRS-CoV-2 (COVID-19) by RT-PCR (HIGH RISK)2021-08-06 00:00:00* Test Item Value Reference Range Interpretation Comme nts SARS-CoV-2 INTERPRETATION (t est code = 47509) NEGATIVE SOURCE (test code = 86638) NOT SPECIFIED SARS-CoV-2 (COVID-19) by RT-PCR (HIGH RISK)2021-08-06 00:00:00* Test Item Value Reference Range Interpretation Comme nts SARS-CoV-2 INTERPRETATION (t est code = 79568) NEGATIVE SOURCE (test code = 91437) NOT SPECIFIED SARS-CoV-2 (COVID-19) by RT-PCR (HIGH RISK)2021-08-06 00:00:00* Test Item Value Reference Range Interpretation Comme nts SARS-CoV-2 INTERPRETATION (t est code = 61805) NEGATIVE SOURCE (test code = 75247) NOT SPECIFIED SARS-CoV-2 (COVID-19) by RT-PCR (HIGH RISK)2021-08-06 00:00:00* Test Item Value Reference Range Interpretation Comme nts SARS-CoV-2 INTERPRETATION (t est code = 57689) NEGATIVE SOURCE (test code = 07784) NOT SPECIFIED CULTURE, [id number] 00:00:00* Test Item Value Reference Range Interpretation Comme nts CULTURE, THROAT (test code = 05431) SPECIMEN NUMBER: [id number] Justice Crow [id number] 00:00:00* Test Item Value Reference Range Interpretation Comme nts CULTURE, THROAT (test code = 46241) SPECIMEN NUMBER: [id number] CULTURE, [id number] 00:00:00* Test Item Value Reference Range Interpretation Comme nts CULTURE, THROAT (test code = 98454) SPECIMEN NUMBER: [id number] CULTURE, [id number] 00:00:00* Test Item Value Reference Range Interpretation Comme nts CULTURE, THROAT (test code = 26473) SPECIMEN NUMBER: [id number] CULTURE, [id number] 00:00:00* Test Item Value Reference Range Interpretation Comme nts CULTURE, THROAT (test code = 60520) SPECIMEN NUMBER: [id number] CULTURE, [id number] 00:00:00* Test Item Value Reference Range Interpretation Comme nts CULTURE, URINE (test code = 45827) SPECIMEN NUMBER: [id number] Justice HughesCULTURE, [id number] 00:00:00* Test Item Value Reference Range Interpretation Comme nts CULTURE, URINE (test code = 87103) SPECIMEN NUMBER: [id number] CULTURE, [id number] 00:00:00* Test Item Value Reference Range Interpretation Comme nts CULTURE, URINE (test code = 11974) SPECIMEN NUMBER: [id number] CULTURE, [id number] 00:00:00* Test Item Value Reference Range Interpretation Comme nts CULTURE, URINE (test code = 02188) SPECIMEN NUMBER: [id number] CULTURE, [id number] 00:00:00* Test Item Value Reference Range Interpretation Comme nts CULTURE, URINE (test code = 10445) SPECIMEN NUMBER: [id number] COMPREHENSIVE METABOLIC [id number] 00:00:00* Test Item Value Reference Range Interpretation Comme nts GLUCOSE (test code = 2217) 105 MG/DL BUN (test code = 2208) 22 MG/DL CREATININE (test code = 2214) 0.73 MG/DL eGFR AMER. (test cod e = 45817) 103 ML/MIN/1.73 eGFR NON- AMER. (test code = 91527) 89 ML/MIN/1.73 CALC BUN/CREAT (test code = 2235) 30 RATIO SODIUM (test code = 2231) 142 MEQ/L POTASSIUM (test code = 2228) 4.4 MEQ/L CHLORIDE (test code = 2215) 102 MEQ/L CARBON DIOXIDE (test code = 2206) 27 MEQ/L CALCIUM (test code = 2209) 9.6 MG/DL PROTEIN, TOTAL (test code = 2229) 7.5 G/DL ALBUMIN (test code = 2201) 4.5 G/DL CALC GLOBULIN (test code = 2240) 3.0 G/DL CALC A/G RATIO (test code = 2234) 1.5 RATIO BILIRUBIN, TOTAL (test code = 2207) 0.4 MG/DL ALKALINE PHOSPHATASE (test code = 2204) 80 U/L AST (test code = 2218) 20 U/L ALT (test code = 2219) 18 U/L Justice Andres AustinHEMOGLOBIN [id number] 00:00:00* Test Item Value Reference Range Interpretation Comme nts HEMOGLOBIN A1c (test code = 90764) 6.6 % Justice Andres AustinLIPID [id number] 00:00:00* Test Item Value Reference Range Interpretation Comme nts CHOLESTEROL (test code = 2210) 162 MG/DL TRIGLYCERIDES (test code = 2232) 78 MG/DL HDL CHOLESTEROL (test code = 2220) 46 MG/DL CALC LDL CHOL (test code = 2237) 99 MG/DL RISK RATIO LDL/HDL (test cod e = 2238) 2.15 RATIO Justice Andres AustinHEMOGLOBIN [id number] 00:00:00* Test Item Value Reference Range Interpretation Comme nts HEMOGLOBIN A1c (test code = 53932) 6.6 % LIPID [id number] 00:00:00* Test Item Value Reference Range Interpretation Comme nts CHOLESTEROL (test code = 2210) 162 MG/DL TRIGLYCERIDES (test code = 2232) 78 MG/DL HDL CHOLESTEROL (test code = 2220) 46 MG/DL CALC LDL CHOL (test code = 2237) 99 MG/DL RISK RATIO LDL/HDL (test cod e = 2238) 2.15 RATIO COMPREHENSIVE METABOLIC [id number] 00:00:00* Test Item Value Reference Range Interpretation Comme nts GLUCOSE (test code = 2217) 105 MG/DL BUN (test code = 2208) 22 MG/DL CREATININE (test code = 2214) 0.73 MG/DL eGFR AMER. (test cod e = 74936) 103 ML/MIN/1.73 eGFR NON- AMER. (test code = 97188) 89 ML/MIN/1.73 CALC BUN/CREAT (test code = 2235) 30 RATIO SODIUM (test code = 2231) 142 MEQ/L POTASSIUM (test code = 2228) 4.4 MEQ/L CHLORIDE (test code = 2215) 102 MEQ/L CARBON DIOXIDE (test code = 2206) 27 MEQ/L CALCIUM (test code = 2209) 9.6 MG/DL PROTEIN, TOTAL (test code = 2229) 7.5 G/DL ALBUMIN (test code = 2201) 4.5 G/DL CALC GLOBULIN (test code = 2240) 3.0 G/DL CALC A/G RATIO (test code = 2234) 1.5 RATIO BILIRUBIN, TOTAL (test code = 2207) 0.4 MG/DL ALKALINE PHOSPHATASE (test code = 2204) 80 U/L AST (test code = 2218) 20 U/L ALT (test code = 2219) 18 U/L HEMOGLOBIN [id number] 00:00:00* Test Item Value Reference Range Interpretation Comme nts HEMOGLOBIN A1c (test code = 31919) 6.6 % LIPID [id number] 00:00:00* Test Item Value Reference Range Interpretation Comme nts CHOLESTEROL (test code = 2210) 162 MG/DL TRIGLYCERIDES (test code = 2232) 78 MG/DL HDL CHOLESTEROL (test code = 2220) 46 MG/DL CALC LDL CHOL (test code = 2237) 99 MG/DL RISK RATIO LDL/HDL (test cod e = 2238) 2.15 RATIO COMPREHENSIVE METABOLIC [id number] 00:00:00* Test Item Value Reference Range Interpretation Comme nts GLUCOSE (test code = 2217) 105 MG/DL BUN (test code = 2208) 22 MG/DL CREATININE (test code = 2214) 0.73 MG/DL eGFR AMER. (test cod e = 16426) 103 ML/MIN/1.73 eGFR NON- AMER. (test code = 39602) 89 ML/MIN/1.73 CALC BUN/CREAT (test code = 2235) 30 RATIO SODIUM (test code = 2231) 142 MEQ/L POTASSIUM (test code = 2228) 4.4 MEQ/L CHLORIDE (test code = 2215) 102 MEQ/L CARBON DIOXIDE (test code = 2206) 27 MEQ/L CALCIUM (test code = 2209) 9.6 MG/DL PROTEIN, TOTAL (test code = 2229) 7.5 G/DL ALBUMIN (test code = 2201) 4.5 G/DL CALC GLOBULIN (test code = 2240) 3.0 G/DL CALC A/G RATIO (test code = 2234) 1.5 RATIO BILIRUBIN, TOTAL (test code = 2207) 0.4 MG/DL ALKALINE PHOSPHATASE (test code = 2204) 80 U/L AST (test code = 2218) 20 U/L ALT (test code = 2219) 18 U/L HEMOGLOBIN [id number] 00:00:00* Test Item Value Reference Range Interpretation Comme nts HEMOGLOBIN A1c (test code = 65072) 6.6 % LIPID [id number] 00:00:00* Test Item Value Reference Range Interpretation Comme nts CHOLESTEROL (test code = 2210) 162 MG/DL TRIGLYCERIDES (test code = 2232) 78 MG/DL HDL CHOLESTEROL (test code = 2220) 46 MG/DL CALC LDL CHOL (test code = 2237) 99 MG/DL RISK RATIO LDL/HDL (test cod e = 2238) 2.15 RATIO COMPREHENSIVE METABOLIC [id number] 00:00:00* Test Item Value Reference Range Interpretation Comme nts GLUCOSE (test code = 2217) 105 MG/DL BUN (test code = 8) 22 MG/DL CREATININE (test code = 2214) 0.73 MG/DL eGFR AMER. (test cod e = 90334) 103 ML/MIN/1.73 eGFR NON- AMER. (test code = 45610) 89 ML/MIN/1.73 CALC BUN/CREAT (test code = 2235) 30 RATIO SODIUM (test code = 2231) 142 MEQ/L POTASSIUM (test code = 2228) 4.4 MEQ/L CHLORIDE (test code = 2215) 102 MEQ/L CARBON DIOXIDE (test code = 2206) 27 MEQ/L CALCIUM (test code = 2209) 9.6 MG/DL PROTEIN, TOTAL (test code = 2229) 7.5 G/DL ALBUMIN (test code = 2201) 4.5 G/DL CALC GLOBULIN (test code = 2240) 3.0 G/DL CALC A/G RATIO (test code = 2234) 1.5 RATIO BILIRUBIN, TOTAL (test code = 2207) 0.4 MG/DL ALKALINE PHOSPHATASE (test code = 2204) 80 U/L AST (test code = 2218) 20 U/L ALT (test code = 2219) 18 U/L HEMOGLOBIN [id number] 00:00:00* Test Item Value Reference Range Interpretation Comme nts HEMOGLOBIN A1c (test code = 61718) 6.6 % LIPID [id number] 00:00:00* Test Item Value Reference Range Interpretation Comme nts CHOLESTEROL (test code = 2210) 162 MG/DL TRIGLYCERIDES (test code = 2232) 78 MG/DL HDL CHOLESTEROL (test code = 2220) 46 MG/DL CALC LDL CHOL (test code = 2237) 99 MG/DL RISK RATIO LDL/HDL (test cod e = 2238) 2.15 RATIO COMPREHENSIVE METABOLIC [id number] 00:00:00* Test Item Value Reference Range Interpretation Comme nts GLUCOSE (test code = 2217) 105 MG/DL BUN (test code = 2208) 22 MG/DL CREATININE (test code = 2214) 0.73 MG/DL eGFR AMER. (test cod e = 86806) 103 ML/MIN/1.73 eGFR NON- AMER. (test code = 69567) 89 ML/MIN/1.73 CALC BUN/CREAT (test code = 2235) 30 RATIO SODIUM (test code = 2231) 142 MEQ/L POTASSIUM (test code = 2228) 4.4 MEQ/L CHLORIDE (test code = 2215) 102 MEQ/L CARBON DIOXIDE (test code = 2206) 27 MEQ/L CALCIUM (test code = 2209) 9.6 MG/DL PROTEIN, TOTAL (test code = 2229) 7.5 G/DL ALBUMIN (test code = 2201) 4.5 G/DL CALC GLOBULIN (test code = 2240) 3.0 G/DL CALC A/G RATIO (test code = 2234) 1.5 RATIO BILIRUBIN, TOTAL (test code = 2207) 0.4 MG/DL ALKALINE PHOSPHATASE (test code = 2204) 80 U/L AST (test code = 2218) 20 U/L ALT (test code = 2219) 18 U/L COMPREHENSIVE METABOLIC [id number] 00:00:00* Test Item Value Reference Range Interpretation Comme nts GLUCOSE (test code = 2217) 117 MG/DL BUN (test code = 2208) 18 MG/DL CREATININE (test code = 2214) 0.64 MG/DL eGFR AMER. (test cod e = 81462) 112 ML/MIN/1.73 eGFR NON- AMER. (test code = 43538) 97 ML/MIN/1.73 CALC BUN/CREAT (test code = 2235) 28 RATIO SODIUM (test code = 2231) 141 MEQ/L POTASSIUM (test code = 2228) 4.3 MEQ/L CHLORIDE (test code = 2215) 103 MEQ/L CARBON DIOXIDE (test code = 2206) 28 MEQ/L CALCIUM (test code = 2209) 10.0 MG/DL PROTEIN, TOTAL (test code = 2229) 7.6 G/DL ALBUMIN (test code = 2201) 4.3 G/DL CALC GLOBULIN (test code = 2240) 3.3 G/DL CALC A/G RATIO (test code = 2234) 1.3 RATIO BILIRUBIN, TOTAL (test code = 2207) 0.3 MG/DL ALKALINE PHOSPHATASE (test code = 2204) 87 U/L AST (test code = 2218) 16 U/L ALT (test code = 2219) 18 U/L Justice HughesVITAMIN [id number] 00:00:00* Test Item Value Reference Range Interpretation Comme sujata VITAMIN B-12 (test code = 2840) 837 PG/ML Justice HughesHEMOGLOBIN [id number] 00:00:00* Test Item Value Reference Range Interpretation Comme sujata HEMOGLOBIN A1c (test code = 55261) 6.9 % Justice HughesLIPID [id number] 00:00:00* Test Item Value Reference Range Interpretation Comme nts CHOLESTEROL (test code = 2210) 213 MG/DL TRIGLYCERIDES (test code = 2232) 108 MG/DL HDL CHOLESTEROL (test code = 2220) 45 MG/DL CALC LDL CHOL (test code = 2237) 146 MG/DL RISK RATIO LDL/HDL (test cod e = 2238) 3.24 RATIO Justice Andres AustinLIPID [id number] 00:00:00* Test Item Value Reference Range Interpretation Comme nts CHOLESTEROL (test code = 2210) 213 MG/DL TRIGLYCERIDES (test code = 2232) 108 MG/DL HDL CHOLESTEROL (test code = 2220) 45 MG/DL CALC LDL CHOL (test code = 2237) 146 MG/DL RISK RATIO LDL/HDL (test cod e = 2238) 3.24 RATIO COMPREHENSIVE METABOLIC [id number] 00:00:00* Test Item Value Reference Range Interpretation Comme nts GLUCOSE (test code = 2217) 117 MG/DL BUN (test code = 2208) 18 MG/DL CREATININE (test code = 2214) 0.64 MG/DL eGFR AMER. (test cod e = 68089) 112 ML/MIN/1.73 eGFR NON- AMER. (test code = 68624) 97 ML/MIN/1.73 CALC BUN/CREAT (test code = 2235) 28 RATIO SODIUM (test code = 2231) 141 MEQ/L POTASSIUM (test code = 2228) 4.3 MEQ/L CHLORIDE (test code = 2215) 103 MEQ/L CARBON DIOXIDE (test code = 2206) 28 MEQ/L CALCIUM (test code = 2209) 10.0 MG/DL PROTEIN, TOTAL (test code = 2229) 7.6 G/DL ALBUMIN (test code = 2201) 4.3 G/DL CALC GLOBULIN (test code = 2240) 3.3 G/DL CALC A/G RATIO (test code = 2234) 1.3 RATIO BILIRUBIN, TOTAL (test code = 2207) 0.3 MG/DL ALKALINE PHOSPHATASE (test code = 2204) 87 U/L AST (test code = 2218) 16 U/L ALT (test code = 2219) 18 U/L VITAMIN [id number] 00:00:00* Test Item Value Reference Range Interpretation Comme nts VITAMIN B-12 (test code = 2840) 837 PG/ML HEMOGLOBIN [id number] 00:00:00* Test Item Value Reference Range Interpretation Comme nts HEMOGLOBIN A1c (test code = 92317) 6.9 % LIPID [id number] 00:00:00* Test Item Value Reference Range Interpretation Comme nts CHOLESTEROL (test code = 2210) 213 MG/DL TRIGLYCERIDES (test code = 2232) 108 MG/DL HDL CHOLESTEROL (test code = 2220) 45 MG/DL CALC LDL CHOL (test code = 2237) 146 MG/DL RISK RATIO LDL/HDL (test cod e = 2238) 3.24 RATIO COMPREHENSIVE METABOLIC [id number] 00:00:00* Test Item Value Reference Range Interpretation Comme nts GLUCOSE (test code = 2217) 117 MG/DL BUN (test code = 2208) 18 MG/DL CREATININE (test code = 2214) 0.64 MG/DL eGFR AMER. (test cod e = 89247) 112 ML/MIN/1.73 eGFR NON- AMER. (test code = 16071) 97 ML/MIN/1.73 CALC BUN/CREAT (test code = 2235) 28 RATIO SODIUM (test code = 2231) 141 MEQ/L POTASSIUM (test code = 2228) 4.3 MEQ/L CHLORIDE (test code = 2215) 103 MEQ/L CARBON DIOXIDE (test code = 2206) 28 MEQ/L CALCIUM (test code = 2209) 10.0 MG/DL PROTEIN, TOTAL (test code = 2229) 7.6 G/DL ALBUMIN (test code = 2201) 4.3 G/DL CALC GLOBULIN (test code = 2240) 3.3 G/DL CALC A/G RATIO (test code = 2234) 1.3 RATIO BILIRUBIN, TOTAL (test code = 2207) 0.3 MG/DL ALKALINE PHOSPHATASE (test code = 2204) 87 U/L AST (test code = 2218) 16 U/L ALT (test code = 2219) 18 U/L VITAMIN [id number] 00:00:00* Test Item Value Reference Range Interpretation Comme nts VITAMIN B-12 (test code = 2840) 837 PG/ML HEMOGLOBIN [id number] 00:00:00* Test Item Value Reference Range Interpretation Comme nts HEMOGLOBIN A1c (test code = 99334) 6.9 % LIPID [id number] 00:00:00* Test Item Value Reference Range Interpretation Comme nts CHOLESTEROL (test code = 2210) 213 MG/DL TRIGLYCERIDES (test code = 2232) 108 MG/DL HDL CHOLESTEROL (test code = 2220) 45 MG/DL CALC LDL CHOL (test code = 2237) 146 MG/DL RISK RATIO LDL/HDL (test cod e = 2238) 3.24 RATIO COMPREHENSIVE METABOLIC [id number] 00:00:00* Test Item Value Reference Range Interpretation Comme nts GLUCOSE (test code = 2217) 117 MG/DL BUN (test code = 2208) 18 MG/DL CREATININE (test code = 2214) 0.64 MG/DL eGFR AMER. (test cod e = 61930) 112 ML/MIN/1.73 eGFR NON- AMER. (test code = 72942) 97 ML/MIN/1.73 CALC BUN/CREAT (test code = 2235) 28 RATIO SODIUM (test code = 2231) 141 MEQ/L POTASSIUM (test code = 2228) 4.3 MEQ/L CHLORIDE (test code = 2215) 103 MEQ/L CARBON DIOXIDE (test code = 2206) 28 MEQ/L CALCIUM (test code = 2209) 10.0 MG/DL PROTEIN, TOTAL (test code = 2229) 7.6 G/DL ALBUMIN (test code = 2201) 4.3 G/DL CALC GLOBULIN (test code = 2240) 3.3 G/DL CALC A/G RATIO (test code = 2234) 1.3 RATIO BILIRUBIN, TOTAL (test code = 2207) 0.3 MG/DL ALKALINE PHOSPHATASE (test code = 2204) 87 U/L AST (test code = 2218) 16 U/L ALT (test code = 2219) 18 U/L VITAMIN [id number] 00:00:00* Test Item Value Reference Range Interpretation Comme nts VITAMIN B-12 (test code = 2840) 837 PG/ML HEMOGLOBIN [id number] 00:00:00* Test Item Value Reference Range Interpretation Comme nts HEMOGLOBIN A1c (test code = 50192) 6.9 % LIPID [id number] 00:00:00* Test Item Value Reference Range Interpretation Comme nts CHOLESTEROL (test code = 2210) 213 MG/DL TRIGLYCERIDES (test code = 2232) 108 MG/DL HDL CHOLESTEROL (test code = 2220) 45 MG/DL CALC LDL CHOL (test code = 2237) 146 MG/DL RISK RATIO LDL/HDL (test cod e = 2238) 3.24 RATIO COMPREHENSIVE METABOLIC [id number] 00:00:00* Test Item Value Reference Range Interpretation Comme nts GLUCOSE (test code = 2217) 117 MG/DL BUN (test code = 2208) 18 MG/DL CREATININE (test code = 2214) 0.64 MG/DL eGFR AMER. (test cod e = 94578) 112 ML/MIN/1.73 eGFR NON- AMER. (test code = 22851) 97 ML/MIN/1.73 CALC BUN/CREAT (test code = 2235) 28 RATIO SODIUM (test code = 2231) 141 MEQ/L POTASSIUM (test code = 2228) 4.3 MEQ/L CHLORIDE (test code = 2215) 103 MEQ/L CARBON DIOXIDE (test code = 2206) 28 MEQ/L CALCIUM (test code = 2209) 10.0 MG/DL PROTEIN, TOTAL (test code = 2229) 7.6 G/DL ALBUMIN (test code = 2201) 4.3 G/DL CALC GLOBULIN (test code = 2240) 3.3 G/DL CALC A/G RATIO (test code = 2234) 1.3 RATIO BILIRUBIN, TOTAL (test code = 2207) 0.3 MG/DL ALKALINE PHOSPHATASE (test code = 2204) 87 U/L AST (test code = 2218) 16 U/L ALT (test code = 2219) 18 U/L VITAMIN [id number] 00:00:00* Test Item Value Reference Range Interpretation Comme nts VITAMIN B-12 (test code = 2840) 837 PG/ML HEMOGLOBIN [id number] 00:00:00* Test Item Value Reference Range Interpretation Comme nts HEMOGLOBIN A1c (test code = 40392) 6.9 % H. PYLORI (BREATH)2020-09-24 00:00:00* Test Item Value Reference Range Interpretation Comme nts H. PYLORI (BREATH) (test cod e = 75269) NEGATIVE Justice HughesH. PYLORI (BREATH)2020-09-24 00:00:00* Test Item Value Reference Range Interpretation Comme nts H. PYLORI (BREATH) (test cod e = 24468) NEGATIVE H. PYLORI (BREATH)2020-09-24 00:00:00* Test Item Value Reference Range Interpretation Comme nts H. PYLORI (BREATH) (test cod e = 48690) NEGATIVE H. PYLORI (BREATH)2020-09-24 00:00:00* Test Item Value Reference Range Interpretation Comme nts H. PYLORI (BREATH) (test cod e = 32685) NEGATIVE H. PYLORI (BREATH)2020-09-24 00:00:00* Test Item Value Reference Range Interpretation Comme nts H. PYLORI (BREATH) (test cod e = 70520) NEGATIVE COMPREHENSIVE METABOLIC [id number] 00:00:00* Test Item Value Reference Range Interpretation Comme nts GLUCOSE (test code = 2217) 112 MG/DL BUN (test code = 2208) 21 MG/DL CREATININE (test code = 2214) 0.63 MG/DL eGFR AMER. (test cod e = 34502) 113 ML/MIN/1.73 eGFR NON- AMER. (test code = 22349) 97 ML/MIN/1.73 CALC BUN/CREAT (test code = 2235) 33 RATIO SODIUM (test code = 2231) 142 MEQ/L POTASSIUM (test code = 2228) 4.4 MEQ/L CHLORIDE (test code = 2215) 104 MEQ/L CARBON DIOXIDE (test code = 2206) 28 MEQ/L CALCIUM (test code = 2209) 9.7 MG/DL PROTEIN, TOTAL (test code = 2229) 7.6 G/DL ALBUMIN (test code = 2201) 4.4 G/DL CALC GLOBULIN (test code = 2240) 3.2 G/DL CALC A/G RATIO (test code = 2234) 1.4 RATIO BILIRUBIN, TOTAL (test code = 2207) 0.4 MG/DL ALKALINE PHOSPHATASE (test code = 2204) 80 U/L AST (test code = 2218) 17 U/L ALT (test code = 2219) 18 U/L Justice Andres AustinMICROALBUMIN/CREATININE, RANDOM AND [id number] 00:00:00* Test Item Value Reference Range Interpretation Comme nts CREATININE, URINE, CONC. (te st code = 2072) 121.1 MG/DL ALBUMIN, URINE, RANDOM (test code = 85167) 1.0 MG/DL CALC ALBUMIN/CREAT, RND (meaghan t code = 33336) 8 MG/G Justice Andres AustinHEMOGLOBIN [id number] 00:00:00* Test Item Value Reference Range Interpretation Comme nts HEMOGLOBIN A1c (test code = 43386) 6.8 % Justice Andres AustinLIPID [id number] 00:00:00* Test Item Value Reference Range Interpretation Comme nts CHOLESTEROL (test code = 2210) 188 MG/DL TRIGLYCERIDES (test code = 2232) 98 MG/DL HDL CHOLESTEROL (test code = 2220) 40 MG/DL CALC LDL CHOL (test code = 2237) 128 MG/DL RISK RATIO LDL/HDL (test cod e = 2238) 3.20 RATIO Justice Andres AustinHEMOGLOBIN [id number] 00:00:00* Test Item Value Reference Range Interpretation Comme nts HEMOGLOBIN A1c (test code = 70108) 6.8 % LIPID [id number] 00:00:00* Test Item Value Reference Range Interpretation Comme nts CHOLESTEROL (test code = 2210) 188 MG/DL TRIGLYCERIDES (test code = 2232) 98 MG/DL HDL CHOLESTEROL (test code = 2220) 40 MG/DL CALC LDL CHOL (test code = 2237) 128 MG/DL RISK RATIO LDL/HDL (test cod e = 2238) 3.20 RATIO COMPREHENSIVE METABOLIC [id number] 00:00:00* Test Item Value Reference Range Interpretation Comme nts GLUCOSE (test code = 2217) 112 MG/DL BUN (test code = 2208) 21 MG/DL CREATININE (test code = 2214) 0.63 MG/DL eGFR AMER. (test cod e = 22317) 113 ML/MIN/1.73 eGFR NON- AMER. (test code = 88625) 97 ML/MIN/1.73 CALC BUN/CREAT (test code = 2235) 33 RATIO SODIUM (test code = 2231) 142 MEQ/L POTASSIUM (test code = 2228) 4.4 MEQ/L CHLORIDE (test code = 2215) 104 MEQ/L CARBON DIOXIDE (test code = 2206) 28 MEQ/L CALCIUM (test code = 2209) 9.7 MG/DL PROTEIN, TOTAL (test code = 2229) 7.6 G/DL ALBUMIN (test code = 2201) 4.4 G/DL CALC GLOBULIN (test code = 2240) 3.2 G/DL CALC A/G RATIO (test code = 2234) 1.4 RATIO BILIRUBIN, TOTAL (test code = 2207) 0.4 MG/DL ALKALINE PHOSPHATASE (test code = 2204) 80 U/L AST (test code = 2218) 17 U/L ALT (test code = 2219) 18 U/L MICROALBUMIN/CREATININE, RANDOM AND [id number] 00:00:00* Test Item Value Reference Range Interpretation Comme nts CREATININE, URINE, CONC. (te st code = 2072) 121.1 MG/DL ALBUMIN, URINE, RANDOM (test code = 38714) 1.0 MG/DL CALC ALBUMIN/CREAT, RND (meaghan t code = 16515) 8 MG/G HEMOGLOBIN [id number] 00:00:00* Test Item Value Reference Range Interpretation Comme nts HEMOGLOBIN A1c (test code = 08425) 6.8 % LIPID [id number] 00:00:00* Test Item Value Reference Range Interpretation Comme nts CHOLESTEROL (test code = 2210) 188 MG/DL TRIGLYCERIDES (test code = 2232) 98 MG/DL HDL CHOLESTEROL (test code = 2220) 40 MG/DL CALC LDL CHOL (test code = 2237) 128 MG/DL RISK RATIO LDL/HDL (test cod e = 2238) 3.20 RATIO COMPREHENSIVE METABOLIC [id number] 00:00:00* Test Item Value Reference Range Interpretation Comme nts GLUCOSE (test code = 2217) 112 MG/DL BUN (test code = 2208) 21 MG/DL CREATININE (test code = 2214) 0.63 MG/DL eGFR AMER. (test cod e = 45653) 113 ML/MIN/1.73 eGFR NON- AMER. (test code = 83063) 97 ML/MIN/1.73 CALC BUN/CREAT (test code = 2235) 33 RATIO SODIUM (test code = 2231) 142 MEQ/L POTASSIUM (test code = 2228) 4.4 MEQ/L CHLORIDE (test code = 2215) 104 MEQ/L CARBON DIOXIDE (test code = 2206) 28 MEQ/L CALCIUM (test code = 2209) 9.7 MG/DL PROTEIN, TOTAL (test code = 2229) 7.6 G/DL ALBUMIN (test code = 2201) 4.4 G/DL CALC GLOBULIN (test code = 2240) 3.2 G/DL CALC A/G RATIO (test code = 2234) 1.4 RATIO BILIRUBIN, TOTAL (test code = 2207) 0.4 MG/DL ALKALINE PHOSPHATASE (test code = 2204) 80 U/L AST (test code = 2218) 17 U/L ALT (test code = 2219) 18 U/L MICROALBUMIN/CREATININE, RANDOM AND [id number] 00:00:00* Test Item Value Reference Range Interpretation Comme nts CREATININE, URINE, CONC. (te st code = 2072) 121.1 MG/DL ALBUMIN, URINE, RANDOM (test code = 86397) 1.0 MG/DL CALC ALBUMIN/CREAT, RND (meaghan t code = 37111) 8 MG/G HEMOGLOBIN [id number] 00:00:00* Test Item Value Reference Range Interpretation Comme nts HEMOGLOBIN A1c (test code = 91153) 6.8 % LIPID [id number] 00:00:00* Test Item Value Reference Range Interpretation Comme nts CHOLESTEROL (test code = 2210) 188 MG/DL TRIGLYCERIDES (test code = 2232) 98 MG/DL HDL CHOLESTEROL (test code = 0) 40 MG/DL CALC LDL CHOL (test code = 2237) 128 MG/DL RISK RATIO LDL/HDL (test cod e = 2238) 3.20 RATIO COMPREHENSIVE METABOLIC [id number] 00:00:00* Test Item Value Reference Range Interpretation Comme nts GLUCOSE (test code = 2217) 112 MG/DL BUN (test code = 2208) 21 MG/DL CREATININE (test code = 2214) 0.63 MG/DL eGFR AMER. (test cod e = 41746) 113 ML/MIN/1.73 eGFR NON- AMER. (test code = 73521) 97 ML/MIN/1.73 CALC BUN/CREAT (test code = 2235) 33 RATIO SODIUM (test code = 2231) 142 MEQ/L POTASSIUM (test code = 2228) 4.4 MEQ/L CHLORIDE (test code = 2215) 104 MEQ/L CARBON DIOXIDE (test code = 2206) 28 MEQ/L CALCIUM (test code = 2209) 9.7 MG/DL PROTEIN, TOTAL (test code = 222) 7.6 G/DL ALBUMIN (test code = 2201) 4.4 G/DL CALC GLOBULIN (test code = 2240) 3.2 G/DL CALC A/G RATIO (test code = 2234) 1.4 RATIO BILIRUBIN, TOTAL (test code = 2207) 0.4 MG/DL ALKALINE PHOSPHATASE (test code = 2204) 80 U/L AST (test code = 2218) 17 U/L ALT (test code = 2219) 18 U/L MICROALBUMIN/CREATININE, RANDOM AND [id number] 00:00:00* Test Item Value Reference Range Interpretation Comme nts CREATININE, URINE, CONC. (te st code = 2072) 121.1 MG/DL ALBUMIN, URINE, RANDOM (test code = 78728) 1.0 MG/DL CALC ALBUMIN/CREAT, RND (meaghan t code = 74962) 8 MG/G HEMOGLOBIN [id number] 00:00:00* Test Item Value Reference Range Interpretation Comme nts HEMOGLOBIN A1c (test code = 57241) 6.8 % LIPID [id number] 00:00:00* Test Item Value Reference Range Interpretation Comme nts CHOLESTEROL (test code = 2210) 188 MG/DL TRIGLYCERIDES (test code = 2232) 98 MG/DL HDL CHOLESTEROL (test code = 2220) 40 MG/DL CALC LDL CHOL (test code = 2237) 128 MG/DL RISK RATIO LDL/HDL (test cod e = 2238) 3.20 RATIO COMPREHENSIVE METABOLIC [id number] 00:00:00* Test Item Value Reference Range Interpretation Comme nts GLUCOSE (test code = 2217) 112 MG/DL BUN (test code = 2208) 21 MG/DL CREATININE (test code = 2214) 0.63 MG/DL eGFR AMER. (test cod e = 10368) 113 ML/MIN/1.73 eGFR NON- AMER. (test code = 85709) 97 ML/MIN/1.73 CALC BUN/CREAT (test code = 2235) 33 RATIO SODIUM (test code = 2231) 142 MEQ/L POTASSIUM (test code = 2228) 4.4 MEQ/L CHLORIDE (test code = 2215) 104 MEQ/L CARBON DIOXIDE (test code = 2206) 28 MEQ/L CALCIUM (test code = 2209) 9.7 MG/DL PROTEIN, TOTAL (test code = 2229) 7.6 G/DL ALBUMIN (test code = 2201) 4.4 G/DL CALC GLOBULIN (test code = 2240) 3.2 G/DL CALC A/G RATIO (test code = 2234) 1.4 RATIO BILIRUBIN, TOTAL (test code = 2207) 0.4 MG/DL ALKALINE PHOSPHATASE (test code = 2204) 80 U/L AST (test code = 2218) 17 U/L ALT (test code = 2219) 18 U/L MICROALBUMIN/CREATININE, RANDOM AND [id number] 00:00:00* Test Item Value Reference Range Interpretation Comme nts CREATININE, URINE, CONC. (te st code = 2072) 121.1 MG/DL ALBUMIN, URINE, RANDOM (test code = 40633) 1.0 MG/DL CALC ALBUMIN/CREAT, RND (meaghan t code = 28330) 8 MG/G Notes Date/Time Note Provider Source [facility]2023-07-20 13:58:45 Chief Complaint Patient presents with Well Woman Exam Tamara Celestin is here today for her Well Woman Exam. Patient's last menstrual period was 10/30/2015 (approximate). The patient's last pap smear was 2019 and her last mammogram was 05/19/2015 . Asmita Grimes CMA I T [facility]
--- NOTE | 2024-08-25 10:02 | RAD REPORT ---
EXAMINATION: XR LEFT KNEE CLINICAL INDICATION: PAIN TECHNIQUE: Multiple projections of the left knee were obtained. COMPARISON: No prior exam. FINDINGS: No bone or joint abnormality seen.
--- NOTE | 2024-08-25 10:03 | ER ---
Nurse's Notes [facility] Name: Gina Germain Age: 64 yrs Sex: Female : 1960 Arrival Date: 08/25/2024 Time: 09:20 Bed 19 Private MD: Diagnosis: Contusion of left knee Presentation: 08/25 09:23 Chief complaint: EMS states: patient was hit by a shopping cart in the [facility] parking ap3 lot in the left leg. EMS administered 1000mg Tylenol in route. Coronavirus screen: At this time, the client does not indicate any symptoms associated with coronavirus-19. Ebola Screen: No symptoms or risks identified at this time. Initial Sepsis Screen: Does the patient meet any 2 criteria? No. Patient's initial sepsis screen is negative. Does the patient have a suspected source of infection? No. Patient's initial sepsis screen is negative. Risk Assessment: Do you want to hurt yourself or someone else? Patient reports no desire to harm self or others. Onset of symptoms was August 25, 2024. Care prior to arrival: Medication(s) given: Tylenol, 1000 mg. Transition of care: patient was not received from another setting of care. 09:23 Method Of Arrival: EMS: [facility] ap3 09:23 Acuity: JONATHAN 5 ap3 Triage Assessment: 09:25 General: Appears in no apparent distress. Behavior is calm, cooperative, appropriate ap3 for age. Pain: Complains of pain in left asencio. Neuro: Level of Consciousness is awake, alert, obeys commands, Oriented to person, place, time, situation, Appropriate for age. Cardiovascular: Patient's skin is warm and dry. Respiratory: Airway is patent Respiratory effort is even, unlabored, Respiratory pattern is regular, symmetrical. Derm: Wound noted left asencio. Historical: - Allergies: 09:25 No Known Allergies; ap3 - PMHx: :25 diabetes mellitus; Hypercholesterolemia; Hypertensive disorder; ap3 - PSHx: 09:25 section; ap3 - Immunization history:: Adult Immunizations unknown. - Infectious Disease History:: Denies. - Social history:: Smoking status: unknown. Screenin: Abuse screen: Denies threats or abuse. Nutritional screening: No deficits noted. ap3 Tuberculosis screening: No symptoms or risk factors identified. : [facility] ED Fall Risk Assessment (Adult) History of falling in the last 3 months, ap3 including since admission No falls in past 3 months (0 pts) Confusion or Disorientation No (0 pts) Intoxicated or Sedated No (0 pts) Impaired Gait No (0 pts) Mobility Assist Device Used No (0 pt) Altered Elimination No (0 pt) Score/Fall Risk Level 0 - 2 = Low Risk Oriented to surroundings, Maintained a safe environment, Educated pt \T\ family on fall prevention, incl call for assistance when getting out of bed, Assessed \T\ reinforced patient's understanding of fall precautions, Hourly rounding (assess needs \T\ fall precautionary measures) done, Used ambulatory aids as needed (educated on \T\ assisted with), Used gait belt as appropriate. Vital Signs: 09:23 BP 159 / 66; Pulse 76; Resp 18; Temp 98.5; Pulse Ox 100% ; ap3 10:29 BP 146 / 66; Pulse 66; Resp 18; Temp 98.3; Pulse Ox 100% on R/A; ap3 ED Course: 09:23 Patient arrived in ED. ap3 09:23 Francisco Coker MD is Attending Physician. bo1 09:25 Triage completed. ap3 09:26 Arm band placed on right wrist. ap3 09:26 Patient has correct armband on for positive identification. Bed in low position. Call ap3 light in reach. Side rails up X 1. Provided Education on: call light education. Pulse ox on. NIBP on. 09:27 No provider procedures requiring assistance completed. ap3 09:48 Knee Left 3 View XRAY In Process Unspecified. EDMS 10:03 Macey Arevalo, RN is Primary Nurse. ap3 10:29 Patient did not have IV access during this emergency room visit. ap3 Administered Medications: No medications were administered Medication: 10:29 VIS not applicable for this client. ap3 Outcome: 10:03 Discharge ordered by . bo1 10:28 Discharged to home ambulatory, with family, ap3 10:28 Condition: good 10:28 Discharge instructions given to patient, family, Instructed on discharge instructions, follow up and referral plans. medication usage, Demonstrated understanding of instructions, follow-up care, medications, Prescriptions given X 1, 10:29 Patient left the ED. ap3 Signatures: Dispatcher [employer] EDMS Guerline Arevaloanda, RN RN ap3 Francisco Coker, MD bo1
--- NOTE | 2024-08-25 10:04 | EDPHYS ---
Physician Documentation [facility] Name: Gina Germain Age: 64 yrs Sex: Female : 1960 Arrival Date: 08/25/2024 Time: 09:20 Bed 19 Private MD: ED Physician Francisco Coker HPI: 08/25 09:57 This 64 yrs old Female presents to ER via EMS with complaints of left knee bo1 pain. 09:57 Pt was "hit" by a shopping cart at [facility]. Onset: The symptoms/episode began/occurred bo1 acutely, just prior to arrival. Severity of symptoms: Pain is currently a 5 / 10. Pt was transported to the ER. She is able to bear weight etc. Historical: - Allergies: 09:25 No Known Allergies; ap3 - PMHx: 09:25 diabetes mellitus; Hypercholesterolemia; Hypertensive disorder; ap3 - PSHx: 09:25 section; ap3 - Immunization history:: Adult Immunizations unknown. - Infectious Disease History:: Denies. - Social history:: Smoking status: unknown. ROS: 09:59 Constitutional: Negative for fever, chills, and weight loss bo1 09:59 MS/extremity: Positive for pain, Mild abrasion to the knee, Exam: 09:59 Constitutional: This is a well developed, well nourished patient who is awake, alert, bo1 and in no acute distress. 09:59 Musculoskeletal/extremity: Extremities: grossly normal except: pain, Left knee, No ecchymosis, ROM: full active range of motion, full passive range of motion, Circulation is intact in all extremities. No swelling or laceration. Vital Signs: 09:23 BP 159 / 66; Pulse 76; Resp 18; Temp 98.5; Pulse Ox 100% ; ap3 10:29 BP 146 / 66; Pulse 66; Resp 18; Temp 98.3; Pulse Ox 100% on R/A; ap3 MDM: 09:23 Medical Screening Exam initiated bo1 10:01 Differential Diagnosis Contusion and sprain. Data reviewed: vital signs, radiologic bo1 studies, plain films, Prelim review - Normal study, no acute findings. 08/25 09:28 Order name: Knee Left 3 View XRAY; Complete Time: 10:06 bo1 08/25 10:02 Order name: Tyrone wrap-joint; Complete Time: 10:03 bo1 Administered Medications: No medications were administered Disposition Summary: 08/25/24 10:03 Discharge Ordered Notes: Location: Home bo1 Problem: new bo1 Symptoms: are unchanged bo1 Condition: Stable bo1 Diagnosis - Contusion of left knee bo1 Followup: bo1 - With: Private Physician - When: Upon discharge from the Emergency Department - Reason: Continuance of care Discharge Instructions: - Discharge Summary Sheet bo1 - Contusion, [id number] bo1 Forms: - Medication Reconciliation Form bo1 - Antibiotic Education bo1 - Prescription Opioid Use bo1 - Patient Portal Instructions bo1 - Leadership Thank You Letter bo1 Prescriptions: - Tylenol 325 mg Oral tablet - take 2 tablets ORAL route every 6 hours as needed - OTC bottle; 1 Unspecified; bo1 Refills: 0, Product Selection Permitted Signatures: Dispatcher [employer] Macey Moore RN RN ap3 OeiFrancisco MD MD bo1
[2024-08-25 16:27] VITALS: O2SAT 100
[2024-08-25 16:28] VITALS: BP 146/66; TEMP 98.3
== END 2024-08-25 10:29 | disposition home or self-care (01) ==
LOC: ER 09:20
DX: S80.02XA Contusion of left knee, initial encounter (principal); W22.8XXA Striking against or struck by other objects, initial encounter; Y92.512 Supermarket, store or market as the place of occurrence of the external cause; E11.9 Type 2 diabetes mellitus without complications; I10 Essential (primary) hypertension; E78.00 Pure hypercholesterolemia, unspecified
CPT/HCPCS: 99284

== ENCOUNTER 2025-07-31 09:00 | Day surgery (SDC) | payer MEDICARE ==
[2025-07-28 11:32] LABS: Absolute Lymphocytes (CBC) 2.6 K/uL (0.7-4.9); Hematocrit 37.9 % (36.0-45.0); Hemoglobin 12.6 g/dL (12.0-15.0); MCH 29.8 pg (27.0-35.0); MCHC 33.2 g/dL (32.0-36.0); MCV 89.7 fL (80-100); MPV 9.4 fL (7.6-11.3); Nucleated RBC Absolute Count 0.0 (0-0); Nucleated Red Blood Cells % 0.0 % (0-0); RBC Red Blood Cell Count 4.23 M/uL (3.86-4.86); White Blood Count 7.90 thou/uL (4.3-10.9)
[2025-07-28 11:33] LABS: Urine Culture Reflex Order REFLEXED; Urine Microscopic Reflex YN NO UMIC
[2025-07-28 11:45] LABS: PT Prothrombin Time 11.6 SECONDS (10-13.0); PTT, Activated Partial Thromb 28.9 SECONDS (27.2-37.4); Protime INR 1.03
[2025-07-28 11:52] LABS: Anion Gap 7.5 mEq/L (5.0-15.0); BUN Blood Urea Nitrogen 17.0 mg/dL (7-18); Glucose Level 96.0 mg/dL (74-106); Potassium 4.5 mEq/L (3.5-5.1)
[2025-07-31] MEDS: NA CHLORIDE 0.9% 100 ML ONE (09:15)
[2025-07-31] MEDS ORDERED: SCOPOLAMINE HYDROBROMIDE PATCH TD ONE (09:41)
[2025-07-31] MEDS ORDERED: LIDOCAINE HCL/EPINEPHRINE 20 ML MDV ONE (09:45)
[2025-07-31] MEDS ORDERED: LIDOCAINE 2% MPF 5 ML VIAL ONE (10:21)
[2025-07-31] MEDS ORDERED: ROCURONIUM 50 MG/5 ML VIAL IV ONE (10:21)
[2025-07-31] MEDS ORDERED: KETOROLAC 30 MG/ML INJ ONE (10:21)
[2025-07-31] MEDS ORDERED: FENTANYL CITR 100 MCG/2 ML ONE (10:21)
[2025-07-31] MEDS ORDERED: ONDANSETRON 4 MG/2 ML VIAL ONE (10:21)
[2025-07-31] MEDS ORDERED: MIDAZOLAM HCL 2 MG/2 ML INJ ONE (10:21)
[2025-07-31] MEDS: NA CHLORIDE 0.9% 1,000 ML ONE ×2 (10:44→11:52)
[2025-07-31] MEDS: CEFAZOLIN SODIUM 2 GM/VIAL ONE (10:44)
[2025-07-31] MEDS: CEFAZOLIN SODIUM 1 GM/VIAL ONE (11:20)
[2025-07-31] MEDS: VASOPRESSIN 20 UNIT/ML VIAL ONE ×2 (11:20→11:21)
[2025-07-31] MEDS: NACL 0.9% IRR ONE (13:10)
[2025-07-31] MEDS: IRR IRR ONE (13:10)
[2025-07-31 13:51] VITALS: BP 128/55; TEMP 97; O2SAT 98
--- NOTE | 2025-07-31 20:41 | OP ---
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 Preoperative Diagnoses: Stress urinary incontinence. Urge urinary incontinence. Postoperative Diagnoses: Stress urinary incontinence. Urge urinary incontinence plus stage II incom plete uterovaginal prolapse with anterior wall prolapse greater than the posterior. Procedures Performed: Transobturator single incision midurethral sling (Solyx), cystoscopy. Anesthesia: General. Specimens: No specimens. Complications: No complications. Drains: Gonzalez catheter. Condition: Patient's condition stable. Findings: The sling was placed in the mid urethra with the central part flat against the urethra. C ystoscopy was negative for foreign body or trauma. The patient's POP-Q was -1, 0, -1, 4.5, moderate, 8, 2, -2, -2, -4. The significant anterior wall an d apical descent much more evident under anesthesia than in the clinic when she was evaluated. Indications: The 65-year-old patient presented with mixed incontinence. She was evaluated with cyst oscopy, urodynamics, a voiding log, as well as, an incontinence in question. Discussed all different options of treatment of overactive bladder and stress urinary incontinence, and stress incontinence has been significant and therefore we discussed about the options of pelvic floor exercises. She has failed these at home. Sling and bulking were reviewed and the patient wanted to proceed with the sl ing, understanding the more definitive nature of this and once she was consented to and medically kiersten ared, she was brought to the hospital. Description Of Procedure: She was re-consented in the preoperative area, taken back to the OR, and 2 g of Ancef was given. General anesthesia was given. She was placed in a dorsal lithotomy position using Senthil stirrups. Lower abdomen, medial thighs, vulva, vagina, and perineum were prepped and ovidio ped in a sterile fashion using Betadine. She was draped in a sterile fashion. A Gonzalez was placed to drain the bladder. Midurethral area was picked up on either sides with 2 Allis clamps, injected in the midurethral area with 10 cc of dilute vasopressin. Then, a 15 blade was used to make an incision through the epithelium, connective tissue to get to create tunnels on each side towards the ipsilate ral obturator space. Without perforating obturator membrane, the tract was expanded on both sides. Then, the Solyx kit was opened. The sling was dipped in antibiotic solution and marked in the middle with a 3-0 Vicryl blue stitch. Then, it was loaded onto the needle and the left anchor was first de ployed. This was done according to the usual steps including insertion to the obturator space undern eath the inferior pubic ramus along the tract created then angling it upwards at 45 degree angle righ t behind the anterior pubic ramus. The anchor was deployed into the obturator internus muscle past t he fascia with 2 pops. Then, the needle was deployed. Then, the right-sided anchor was loaded and t he same process was followed. Once it was at the obturator muscles, this was deployed into the muscl e going through the fascia. Once this was done, it was left in place. Then the midurethral area was checked with the help of Metzenbaum scissor between the urethra and the sling. There was good tensi oning here which was optimal. The stitch that was marked was right in the middle. Then the anchor w as deployed. Stitch was cut. The mesh was flattened out and then after thorough irrigation, suction was performed. The incision was closed along with the fascia and epithelium with a continuous runni ng 3-0 Vicryl suture in a locked fashion. There was excellent hemostasis. Gonzalez was removed. Cyst oscopy was performed with 30 degree lens and a 17-Welsh sheath. Normal saline. Urethra without any trauma. Bladder, both ureteric orifices were visualized, good jets, and no evidence of any trauma o n the lateral aspect of the internal meatus. The entire base of the bladder dome, lateral zarate were inspected closely, trigone with squamous metaplasia. The bladder was drained. Gonzalez was replaced. The patient was recovered from anesthesia after instruments, needles, and sponge counts were correct and taken to PACU in stable condition. She will have a voiding trial here and then 1 week and 6 weeks postop. SAMIRA/RADHA Voice ID: [id number] Report ID: [id number]
== END 2025-07-31 13:40 | disposition home or self-care (01) ==
LOC: OR 09:00
PROVIDERS: ATTEND Obstetrics & Gynecology
PROC: 0TSD0ZZ Reposition Urethra, Open Approach (ICD-10-PCS; principal; 2025-07-31 10:30)
DX: N39.46 Mixed incontinence (principal); N81.2 Incomplete uterovaginal prolapse
CPT/HCPCS: 93005; 87088; 85025; 87086; 80048; 36415; 86900; 86850; 85610; 86901; 82947 ×2; 85730; 81003; 57288; J2704; J2003; J2250; J3010; J1100; J2405; J7030 ×2; J0690